=== PATIENT | male | born 1975 | race Two or more races ===

== ENCOUNTER 2018-11-12 10:23 | Emergency (ER) | payer OTHER ==
[2018-11-12] MEDS ORDERED: KETOROLAC 60 MG/2 ML VIAL IM STA (12:19)
--- NOTE | 2018-11-12 12:27 | ED Physician Documentation ---
PD HPI BACK PAIN - Stated complaint Stated Complaint: BACK PX - Chief complaint Chief Complaint: Back Pain - History obtained from History obtained from: Patient - History of Present Illness Timing - onset: How many months ago (3) Timing - duration: Months (3) Timing - details: Gradual onset, Still present Pain level max: 10 Pain level now: 10 Location: Lower Quality: Pain, Spasm, Sharp, Similar to prior episodes Associated symptoms: Numbness. No: Fever, Weakness, Incontinent of urine, Unable to urinate, Hematuria, Incontinent of stool Improves with: Nothing Worsened by: Movement Contributing factors: No: Trauma, Anticoagulated, Out of meds Similar symptoms before: Work up / diagnostics Recently seen: Clinic - Additional information Additional information: 43-year-old male with history of low back pain the past 3 months. He stated he was seen at [facility] and had an MRI of his low back last October 11, 2018 which showed spinal stenosis and herniated disc of L4-L5. He also has left sciatica with this low back pain. He claims that sometimes he would have numbness on the left side of his thigh. 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 He had been taking Tylenol and naproxen and his primary doctor had prescribed Flexeril which he does not take because it only makes him sleepy.His primary doctor had referred him to a specialist for pain and a spine doctor but is waiting for approval from the insurance company. He is here today hoping that we can do an epidural steroid injection to him. I informed him that we do not do this special procedure in the emergency room. I did encourage him to follow-up on the referral for the specialist with his primary doctor. Review of Systems Ten Systems: 10 systems reviewed and negative Constitutional: denies: Fever, Myalgias GI: denies: Abdominal Pain, Diarrhea : denies: Dysuria, Frequency, Hesitancy, Unable to Void, Incontinent, Hematuria Skin: denies: Rash Musculoskeletal: reports: Back pain, Pain with weight bearing. denies: Neck pain, Extremity pain, Joint pain, Extremity swelling, Joint swelling Neurologic: reports: Numbness. denies: Generalized weakness, Focal weakness PD PAST MEDICAL HISTORY - Present Medications Home Medications: Ambulatory Orders Medication Instructions Recorded Confirmed Ibuprofen [Motrin Ib] 800 mg PO Q8HR PRN #20 tablet 11/12/18 Lidocaine Patch 5% [Lidoderm Patch] 1 each TOP DAILY PRN #10 patch 11/12/18 predniSONE [Prednisone] 40 mg PO DAILY #10 tablet 11/12/18 - Allergies Allergies/Adverse Reactions: Allergies Allergy/AdvReac Type Severity Reaction Status Date / Time No Known Drug Allergies Allergy Verified 11/12/18 10:40 PD ED PE NORMAL - Vitals Vital signs reviewed: Yes - General General: Alert and oriented X 3, No acute distress, Well developed/nourished - Neck Neck: Supple, no meningeal sign, No bony TTP - Cardiac Cardiac: RRR, No murmur - Respiratory Respiratory: No respiratory distress, Clear bilaterally - Abdomen Abdomen: Normal bowel sounds, Soft, Non tender, Non distended - Back Back: No CVA TTP, No spinal TTP, Other (Negative leg raising. Ambulates with slight limp of his left leg.) - Derm Derm: Normal color, Warm and dry - Extremities Extremities: No deformity, No tenderness to palpate, Normal ROM s pain, No edema, No calf tenderness / cord - Neuro Neuro: Alert and oriented X 3 - Psych Psych: Normal mood, Normal affect Results - Vitals Vitals: Vital Signs - 24 hr 11/12/18 10:33 Temperature 36 C L Heart Rate 90 Respiratory 16 Rate Blood Pressure 145/92 H O2 Saturation 100 Oxygen O2 Source Room air PD MEDICAL DECISION MAKING - ED course Complexity details: considered differential (HNP, spinal stenosis, sciatica, chronic low back pain), d/w patient ED course: Discussed various treatment with patient. He agreed to have a Toradol shot here in the emergency room. Will discharge him on prednisone for 5 days. Then he will take the Motrin. Encouraged him to take his Flexeril for muscle spasms when needed. Emphasized to him following up with his primary doctor on the referral to a toy painter and the spine doctor. Patient expressed understanding. Departure - Departure Disposition: 01 Home, Self Care Clinical Impression: Back pain Qualifiers: Back pain location: low back pain Chronicity: chronic Back pain laterality: unspecified Sciatica presence: with sciatica Sciatica laterality: sciatica of left side Qualified Code(s): M54.42 - Lumbago with sciatica, left side; G89.29 - Other chronic pain Condition: Stable Instructions: ED Chronic Pain Management, ED Neck Back Pain General Prescriptions: Ibuprofen [Motrin Ib] 800 mg PO Q8HR PRN #20 tablet PRN Reason: pain Lidocaine Patch 5% [Lidoderm Patch] 1 each TOP DAILY PRN #10 patch PRN Reason: Pain predniSONE [Prednisone] 40 mg PO DAILY #10 tablet Comments: Take the prednisone as prescribed. When finish you may start taking the Motrin. You should try to take your Flexeril to decrease your muscle spasm. Follow- up with your primary doctor for reevaluation and follow-up of the referral with pain management and spine doctor. If worse such as incontinence of your urine or stool and numbness between your legs return to the emergency room.
[2018-11-12 13:04] VITALS: BP 131/88
== END 2018-11-12 13:03 | disposition home or self-care (01) ==
LOC: ED 10:23
DX: M54.42 Lumbago with sciatica, left side (principal); G89.29 Other chronic pain
CPT/HCPCS: 96372; 99282; 99283

== ENCOUNTER 2022-02-10 09:10 | Emergency (ER) | payer MEDICAID ==
[2022-02-10] MEDS ORDERED: cefTRIAXone 1 GM in SODIUM CHLORIDE 0.9% MINIBAG 100 ML IV STA (09:38)
[2022-02-10] MEDS ORDERED: cefTRIAXone 1 GM VIAL IM STA (09:46)
[2022-02-10] MEDS ORDERED: LIDOCAINE 1% 10 ML MDV SUBQ ONE (10:12)
--- NOTE | 2022-02-10 10:14 | ED Physician Documentation ---
History of Present Illness - Stated complaint Stated Complaint: LEFT LEG SWELLING/PX - Chief complaint Chief Complaint: Ext Problem - History obtained from History obtained from: Patient - History of Present Illness Timing: How many days ago (3) - Additonal information Additional information: 46-year-old male has developed some swelling in his left foot about 3 days ago. He states that he had a massage done and the following day began to get swelling in his foot and redness the swelling and redness is increased day by day as has the pain. He went into be evaluated by the urgent care and they sent him here to the hospital with concerns of possible DVT. Review of Systems Constitutional: denies: Fever Ears: denies: Ear pain Nose: denies: Congestion Throat: denies: Sore throat Respiratory: denies: Cough GI: denies: Nausea, Vomiting : denies: Dysuria, Frequency Skin: denies: Rash Musculoskeletal: reports: Extremity pain, Extremity swelling. denies: Neck pain, Back pain Neurologic: denies: Generalized weakness, Focal weakness, Numbness PD PAST MEDICAL HISTORY - Past Medical History Past Medical History: No - Past Surgical History Past Surgical History: No - Present Medications Home Medications: Ambulatory Orders Medication Instructions Recorded Confirmed Ibuprofen [Motrin Ib] 800 mg PO Q8HR PRN #20 tablet 11/12/18 Lidocaine Patch 5% [Lidoderm Patch] 1 each TOP DAILY PRN #10 patch 11/12/18 predniSONE [Prednisone] 40 mg PO DAILY #10 tablet 11/12/18 Amox/Clav 875/125 [Augmentin] 1 each PO Q12H #20 tablet 02/10/22 - Allergies Allergies/Adverse Reactions: Allergies Allergy/AdvReac Type Severity Reaction Status Date / Time No Known Drug Allergies Allergy Verified 02/10/22 09:25 - Social History Does the pt smoke?: No Smoking Status: Never smoker Does the pt drink ETOH?: Yes Does the pt have substance abuse?: Yes Substance Use and Type: CBD oil / Products - Immunizations Immunizations are current?: Yes PD ED PE NORMAL - Vitals Vital signs reviewed: Yes (Hypertensive mild) - General General: Alert and oriented X 3, No acute distress, Well developed/nourished - HEENT HEENT: Atraumatic, PERRL, EOMI - Respiratory Respiratory: No respiratory distress - Derm Derm: Normal color, Warm and dry, No rash - Extremities Extremities: No deformity, Other (There is swelling and point tenderness over the dorsum of the left foot medially. There is a lymphangitic streak over the medial aspect of the left calf. There is no posterior calf tenderness. There is pain to flexion extension of the foot pain is located over the dorsum.) - Neuro Neuro: Alert and oriented X 3, hull grinder 2-12 intact, No motor deficit, No sensory deficit, Normal speech Eye Opening: Spontaneous Motor: Obeys Commands Verbal: Oriented GCS Score: 15 - Psych Psych: Normal mood, Normal affect Results - Vitals Vitals: Vital Signs - 24 hr 02/10/22 02/10/22 09:21 10:49 Temperature 35.9 C L 36.2 C L Heart Rate 96 96 Respiratory 18 18 Rate Blood Pressure 140/77 H 137/93 H O2 Saturation 99 100 Oxygen O2 Source Room air - Rads (name of study) Duplex veins left Radiology: Prelim report reviewed (Impression: No deep venous thrombosis.), EMP read indepedently, See rad report PD MEDICAL DECISION MAKING - ED course Complexity details: reviewed results, re-evaluated patient, considered differential, d/w patient ED course: 46-year-old male with swelling and redness to the top of his left foot a day after getting a massage appears to have cellulitis. There is a lymphangitic streak. There is no fever associated with this. He was sent to the emergency department to rule out deep vein thrombosis and duplex vein scan is unremarkable. He is administered Rocephin 1 g IM and we will start him on some Augmentin. I have given this patient in specific instructions to return to the emergency department if he has progression of symptoms despite beginning treatment. Departure - Departure Disposition: 01 Home, Self Care Clinical Impression: Cellulitis Qualifiers: Site of cellulitis: extremity Site of cellulitis of extremity: lower extremity Laterality: left Qualified Code(s): L03.116 - Cellulitis of left lower limb Condition: Stable Instructions: ED Infec Skin Cellulitis Follow-Up: [facility] [Provider Group] Prescriptions: Amox/Clav 875/125 [Augmentin] 1 each PO Q12H #20 tablet Comments: Miguel, today it looks like you have cellulitis in your left foot. This is a bacterial infection in the layer of the skin that does not have septations. This can travel quickly and can get out of hand. It also responds well to antibiotic. The expectation is that you will have improvement that you will be able to notice even today. If you are having worsening of the symptoms of redness or the red streak going up your leg, that is a reason to return to the emergency department for admission to the hospital for more aggressive treatment. The antibiotic Augmentin has been E scribed to [facility] in [place]. Discharge Date/Time: 02/10/22 10:56
--- OUTSIDE RECORDS SUMMARY | 2022-02-10 10:33 | EXTERNAL MEDICAL SUMMARY RPT | Continuity of Care Document ---
:1975 Author Organization [facility] Address [address] [place] [address] Phone Care Team Providers Name Role Phone M.D. Unavailable Unavailable Allergies No information. Encounters No information. Medications No information. Problems date description facility 20220210 Tobacco use and exposure All 20220210 Smoker, current status unknown All 20220210 Pain in limb All 20220210 Pain in left lower limb All 20220210 Pain in left leg All 20220210 Exercise All 20220210 Details of drug misuse behavior All 20220210 Alcohol use All Results No information. Vital Signs date measurement value source 20220210 weight_standard 256.4 lb 20220210 weight_metric 116.3 kg 20220210 temperature_standard 97.3 F 20220210 temperature_metric 36.28 C 20220210 respiration_rate 18 /min 20220210 height_standard 67.75 in 20220210 height_metric 172.09 cm 20220210 heart_rate 103 /min 20220210 BP_systolic 156 mm[Hg] 20220210 BP_diastolic 94 mm[Hg] 20220210 BMI 39.42 kg/m2
[2022-02-10 10:50] VITALS: BP 137/93
[2022-02-10] MEDS ORDERED: LIDOCAINE-MPF 1% 5 ML VIAL IM ONE (11:00)
--- NOTE | 2022-02-10 11:57 | Ultrasound Report ---
PROCEDURE: Duplex Ext Veins Left INDICATIONS: leg pain/swelling TECHNIQUE: Real-time imaging, as well as color and pulse Doppler interrogation, were performed of the lower extr emity deep veins from the inguinal ligament to the popliteal fossa. COMPARISON: None. FINDINGS: The deep veins are normally compressible, and free of intraluminal thrombus. Color and pu lse Doppler demonstrate normal phasic intraluminal flow. There is normal augmentation response to di stal compression maneuver. IMPRESSION: No deep venous thrombosis. Reviewed by: Ada Edwards MD on 02/10/2022 11:55 AM PDT Approved by: Ada Edwards MD on 02/10/2022 11:55 AM PDT Station ID: [id number]
== END 2022-02-10 10:56 | disposition home or self-care (01) ==
LOC: ED 09:10
DX: L03.116 Cellulitis of left lower limb (principal)
CPT/HCPCS: 96372; 99282; 99284

== ENCOUNTER 2022-02-13 16:26 | Inpatient (IN) | payer MEDICAID ==
--- NOTE | 2022-02-13 16:51 | ED Physician Documentation ---
History of Present Illness - Stated complaint Stated Complaint: FOOT PX - Additonal information Additional information: 46-year-old diabetic male returns to the emergency department for evaluation of worsening left foot cellulitis. Seen here on 10 February for left foot swelling an d redness after having a massage done. Ultrasound DVT was negative. He was treated presumptively for cellulitis. Given injection of ceftriaxone here in the emergency department and discharged with Augmentin. Despite this the area of redness and swelling has continued to grow. Patient denies josafat fevers at home but has had occasional chills. No nausea or vomiting. He is a diabetic and has been out of his glyburide for about 5 days. Does not routinely check his sugars. Review of Systems Constitutional: reports: Chills Eyes: reports: Reviewed and negative Nose: reports: Reviewed and negative Throat: reports: Reviewed and negative Cardiac: reports: Reviewed and negative Respiratory: reports: Reviewed and negative GI: reports: Reviewed and negative : reports: Reviewed and negative Skin: reports: Lesions Musculoskeletal: reports: Joint pain Neurologic: reports: Reviewed and negative PD PAST MEDICAL HISTORY - Past Surgical History Past Surgical History: No - Present Medications Home Medications: Ambulatory Orders Medication Instructions Recorded Confirmed Amox/Clav 875/125 [Augmentin] 1 each PO Q12H #20 tablet 02/10/22 02/13/22 Glipizide [Glipizide ER] 5 mg PO DAILY 02/13/22 02/13/22 - Allergies Allergies/Adverse Reactions: Allergies Allergy/AdvReac Type Severity Reaction Status Date / Time No Known Drug Allergies Allergy Verified 02/13/22 16:39 - Social History Does the pt smoke?: No Smoking Status: Never smoker Does the pt drink ETOH?: Yes Does the pt have substance abuse?: Yes - Immunizations Immunizations are current?: Yes PD ED PE EXPANDED - General General: Alert, No acute distress, Well developed/nourished - Neck Neck: Supple w/out meningeal sx. No: Adenopathy - Cardiac Cardiac: Regular Rate, Radial strong equal, Pedal strong equal, Cap refill < 2 sec. No: Murmur Present - Respiratory Respiratory: Clear to ausultation richa. No: Distress, Labored - Abdomen Abdomen: Normal Bowel sounds. No: Tender to palpation - Derm Derm: Normal color, Warm and dry, Other (Significant swelling and erythema on the dorsum of the left foot without palpable abscess formation or drainage. 2+ DP pulse.) - Extremities Extremities: Normal, Left foot (see skin exam). No: Deformity - Neuro Neuro: Alert and Oriented X 3, CNII-XII intact - GCS Eye Opening: Spontaneous Motor: Obeys Commands Verbal: Oriented Total: 15 Results - Vitals Vitals: Vital Signs - 24 hr 02/13/22 02/13/22 16:34 17:08 Temperature 36.3 C L Heart Rate 103 H 92 Respiratory 18 16 Rate Blood Pressure 145/84 H 132/68 H O2 Saturation 97 98 Oxygen O2 Source Room air - Labs Labs: Laboratory Tests 02/13/22 02/13/22 16:47 16:47 WBC 10.0 RBC 5.03 Hgb 14.4 Hct 43.0 MCV 85.5 MCH 28.6 MCHC 33.5 RDW 12.9 Plt Count 251 MPV 10.4 Neut # (Auto) 7.2 H Lymph # (Auto) 1.7 Colbert # (Auto) 0.8 Eos # (Auto) 0.2 Baso # (Auto) 0.1 Absolute Nucleated RBC 0.00 Nucleated RBC % 0.0 Sodium 127 L Potassium 4.2 Chloride 93 L Carbon Dioxide 25 Anion Gap 9.0 BUN 10 Creatinine 0.7 Estimated GFR (MDRD) 121 Glucose 408 H Calcium 8.3 L Total Bilirubin 0.4 AST 14 ALT 23 Alkaline Phosphatase 68 Total Protein 6.8 Albumin 3.1 L Globulin 3.7 Albumin/Globulin Ratio 0.8 L Lipase 26 PD MEDICAL DECISION MAKING - ED course Complexity details: reviewed results, re-evaluated patient, considered differential, d/w patient, d/w hospice care consultant ED course: 46-year-old diabetic male presents the emergency department for evaluation of worsening left foot cellulitis. Seen initially here on the found to have an ultrasound DVT that was negative. He was given ceftriaxone in the ER and placed on Augmentin as an outpatient. Despite compliance with this medication he has significant increase in his erythema induration and pain of the left foot. There are no open sores lesions or purulent drainage. He has been out of his glyburide for about 5 days. We do note a blood glucose just over 400 as well as an associated hyponatremia of 127. He does not have leukocytosis or fevers. However given failure of outpatient antibiotics with progression of cellulitis he will be brought into the hospital under observation status. Nonpurulent cellulitis treated with 2 g of Ancef here in the emergency department. I have spoken with Dr. Coburn who graciously agrees to admit the patient. The patient is aware of the plan and is also in agreement. Departure - Departure Disposition: ED Place in Observation Clinical Impression: Cellulitis of left foot, Poorly controlled diabetes mellitus
[2022-02-13 16:53] LABS: BASOPHILS # (AUTO) 0.1 10^3/uL (0.0-0.1); BASOPHILS % (AUTO) 0.5 %; EOSINOPHILS # (AUTO) 0.2 10^3/uL (0.0-0.7); EOSINOPHILS % (AUTO) 1.8 %; HGB - HEMOGLOBIN 14.4 g/dL (14.0-18.0); LYMPHOCYTES # (AUTO) 1.7 10^3/uL (1.5-3.5); LYMPHOCYTES % (AUTO) 16.9 %; MEAN CORPUSCULAR HEMOGLOBIN 28.6 pg (27.0-31.0); MEAN CORPUSCULAR HGB CONC 33.5 g/dL (32.0-36.0); MEAN CORPUSCULAR VOLUME 85.5 fL (80.0-94.0); MEAN PLATELET VOLUME 10.4 fL (7.4-11.4); MONOCYTES # (AUTO) 0.8 10^3/uL (0.0-1.0); MONOCYTES % (AUTO) 8.4 %; NEUTROPHILS # (AUTO) 7.2 10^3/uL (1.5-6.6); NEUTROPHILS % (AUTO) 71.8 %; PLT - PLATELET COUNT 251 10^3/uL (130-450); RED BLOOD COUNT 5.03 10^6/uL (4.70-6.10); RED CELL DISTRIBUTION WIDTH 12.9 % (12.0-15.0)
[2022-02-13 17:06] LABS: ALBUMIN 3.1 g/dL (3.2-5.5); ALBUMIN/GLOBULIN RATIO 0.8 (1.0-2.2); BILIRUBIN,TOTAL 0.4 mg/dL (0.2-1.0); CALCIUM 8.3 mg/dL (8.5-10.3); CREATININE 0.7 mg/dL (0.6-1.2); POTASSIUM 4.2 mmol/L (3.5-5.0); TOTAL PROTEIN 6.8 g/dL (6.7-8.2)
--- OUTSIDE RECORDS SUMMARY | 2022-02-13 17:06 | EXTERNAL MEDICAL SUMMARY RPT | Continuity of Care Document ---
:1975 Author Organization [facility] Address [address] [phone] Phone Care Team Providers Name Role Phone Robert, Irwin Gentile Unavailable Unavailabl e Allergies No information. Encounters No information. Medications [...]
[2022-02-13] MEDS ORDERED: ceFAZolin 2 GM in SODIUM CHLORIDE 0.9% MINIBAG 100 ML IV STA (17:20)
[2022-02-13] MEDS ORDERED: ONDANSETRON 4 MG/2 ML VIAL IVP PRN (17:36)
[2022-02-13] MEDS ORDERED: ONDANSETRON ODT 4 MG TABLET TL PRN (17:36)
[2022-02-13] MEDS: INSULIN ASPART 300 UNIT/3 ML PEN SUBQ SCH ×2 (18:43→22:13)
[2022-02-13 19:18] LABS: B. PARAPERTUSSIS- RESP PCR PAN NOT DETECTED; B. PERTUSSIS- RESP PCR PANEL NOT DETECTED; C. PNEUMONIAE- RESP PCR PANEL NOT DETECTED; CORONAVIRUS 229E-RESP PCR NOT DETECTED; CORONAVIRUS HKU1-RESP PCR NOT DETECTED; CORONAVIRUS NL63-RESP PCR NOT DETECTED; CORONAVIRUS OC43-RESP PCR NOT DETECTED; HUMAN METAPNEUMOVIRUS NOT DETECTED; INFLUENZA A- RESP PCR PANEL NOT DETECTED; INFLUENZA B - RESP PCR PANEL NOT DETECTED; M. PNEUMONIAE- RESP PCR PANEL NOT DETECTED; PARAINFLUENZA VIRUS 1 NOT DETECTED; PARAINFLUENZA VIRUS 2 NOT DETECTED; PARAINFLUENZA VIRUS 3 NOT DETECTED; PARAINFLUENZA VIRUS 4 NOT DETECTED; RHINOVIRUS/ENTEROVIRUS NOT DETECTED; RSV- RESP PCR PANEL NOT DETECTED; SARS-CoV-2 -RESP PCR PANEL NOT DETECTED
[2022-02-13 21:44] LABS: ESTIMATED AVERAGE GLUCOSE 326 mg/dL (70-100)
[2022-02-13] MEDS ORDERED: INSULIN ASPART 300 UNIT/3 ML PEN SUBQ ONE (21:46)
[2022-02-13] MEDS: INSULIN GLARGINE 300 UNIT/3 ML PEN SUBQ SCH (22:14)
[2022-02-13] MEDS: SODIUM CHLORIDE FLUSH 0.9% 10 ML SYRINGE IVP PRN (22:14)
[2022-02-13] MEDS: KETOROLAC 30 MG/ML VIAL IVP PRN (22:14)
--- NOTE | 2022-02-13 23:36 | HISTORY & PHYSICAL EXAMINATION ---
Chief Complaint - Chief Complaint Chief Complaint: Cellulitis left foot History of Present Illness - Admitted From Admitted From:: ED - History Obtained From Records Reviewed: [facility] History obtained from: Patient Exam Limitations: None - History of Present Illness HPI Comment/Other: Mr. Hudson is a morbidly obese, 46-year-old male with a history of poorly controlled diabetes type II who is being admitted from the ED today for cellulitis of the dorsum of his left foot after failing outpatient antibiotic therapy. He first noticed redness and edema on Sunday the . 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 Conservative therapy of Ibuprofen, rest, and ice failed so he went to the ED on Sunday the . There he had an US that ruled out DVT, he was given started on Augmentin and discharged. Over the weekend he was having more pain, the site felt very hot and it became more swollen, prompting his ED visit today. He describes the pain as a constant pressure and ache with occasional stabbing pain with movement. While walking makes the pain worse, he denies pain with movement of his ankle and toes. He also denies fever, chills, rigors, and swea ts. Regarding his diabetes, he initially had increased BGLs in 2007 with an A1c of 8.4%. He was started on Metformin, but it was discontinued due to abdominal discomfort and replaced with Glipizide. Diabetes remained poorly controlled and he stopped taking the Glipizide in 2012 and began to diet and exercise. He lost 60 lbs but does not know what his A1c was at that time. More recently, he was se en at [facility] and started back on Glipizide. Today, he is 118 kg with a BMI fo 40.7 and his BGL on admission was 408. History - Past Medical History Cardiovascular: reports: Other (Palpitations (2007) - Holter showed sinus tach.) Respiratory: reports: None Neuro: reports: Headaches Endocrine/Autoimmune: reports: Type 2 diabetes GI: reports: Other (Non-alcoholic fatty liver disease) : reports: Other (Hematuria (2011) - no cystoscopy) HEENT: reports: None Psych: reports: None Musculoskeletal: reports: Chronic back pain Derm: reports: None MRSA Hx?: No - Family & Social History Family History: Mother: , CAD (CABG in her 40s), CVA/TIA (62 years old - ), Father: , [place] (68 years old - ), Sister: Alive and Well (2 sisters, 1 brother, 1 daughter healthy), Brother: Alive and Well, Other family: Alive and Well Living arrangement: At home Living Situation: Alone - Substance History Use: Uses substance without health or social issues: Tobacco (Smoked for many years 2-3 cigs per day. Quit 2020.), Alcohol (Social drinker), Other (CBD (pain)) - POLST Patient has POLST: No POLST Status: Full Code Meds/Allgy - Home Medications Home Medications: Ambulatory Orders Medication Instructions Recorded Confirmed Amox/Clav 875/125 [Augmentin] 1 each PO Q12H #20 tablet 02/10/22 02/13/22 Glipizide [Glipizide ER] 5 mg PO DAILY 02/13/22 02/13/22 - Allergies Allergies/Adverse Reactions: Allergies Allergy/AdvReac Type Severity Reaction Status Date / Time No Known Drug Allergies Allergy Verified 02/13/22 16:39 Review of Systems - Constitutional Constitutional: denies: Fatigue, Fever, Chills, Malaise, Weakness, Poor appetite, Diaphoresis - Eyes Eyes: denies: Pain, Blurred vision, Vision loss - Ears, Nose & Throat Ears, Nose & Throat: denies: Ear pain, Hearing loss, Vertigo - Cardiovascular Cariovascular: denies: Palpitations, Chest pain, Lightheadedness - Respiratory Respiratory: denies: Cough - Gastrointestinal Gastrointestinal: denies: Abdominal pain, Change in bowel habits - Genitourinary Genitourinary: denies: Dysuria, Frequency, Urgency, Nocturia - Musculoskeletal Musculoskeletal: reports: Back pain. denies: Muscle weakness - Integumentary Integumentary: denies: Rash - Neurological Neurological: denies: General weakness, Headache, Dizziness, Numbness - Endocrine Endocrine: denies: Polyuria, Polydypsia, Polyphagia - Hematologic/Lymphatic Hematologic/Lymphatic: denies: Bruising Prior Level of Functionality: Completely independent Exam - Vital Signs Reviewed Vital Signs: Yes Vital Signs: Vital Signs x48h Temp Pulse Pulse Resp BP BP Pulse Ox 02/13/22 20:47 96 18 134/81 H 99 02/13/22 18:39 37 C 93 19 152/89 H 98 02/13/22 17:08 92 16 132/68 H 98 02/13/22 16:34 36.3 C L 103 H 18 145/84 H 97 - Physical Exam General Appearance: positive: No acute distress, Alert Eyes Bilateral: positive: Normal inspection, PERRL, EOMI ENT: positive: Pharynx nml, No signs of dehydration Neck: positive: Nml inspection. negative: Stiff neck Respiratory: positive: No respiratory distress, Breath sounds nml Cardiovascular: positive: Regular rate & rhythm, No murmur, No gallop Peripheral Pulses: positive: 2+ Abdomen: positive: Non-tender, Nml bowel sounds. negative: Mass Back: positive: Nml inspection Skin: positive: Color nml, No rash, Warm, Dry, Other (Distal dorsum of L foot with fist-sized, blanchable erythema and diffuse swelling below ankle, extending to toes. No lymphangitic streaking.) Extremities: positive: Full ROM (Painless full ROM at ankles and toes.), Nml appearance, Pedal edema (Dorsum of left foot only. Non-pitting.). negative: Joint swelling Neurologic/Psychiatric: positive: Oriented x3, CN's nml (2-12) (Grossly), Motor nml, Sensation nml (Bilateral feet normal sensation to light touch) Comments/Other: Mr. Hudson is a pleasant man who appears to be of stated age. He is in no distress. His exam is unremarkable except for his left foot. It is diffusely swollen from inferior ankle to toes with a distal, mid-foot, fist-sized area of blanchable erythema. There is no evidence of lymphangitic streaking and no obvious bite frankel or skin breaks. There is a 5 mm, intact vesicle with a depressed center consistent with a pressure blister. Conclusion/Plan - Problem List (1) Cellulitis of left foot Conclusion/Plan: Erythema and edema with intact skin consistent with cellulitis. No fever or lymphangitic streaking at this time. Failed outpatient antibiotic management of Augmentin. Due to poorly controlled DMII, treating with IV meropenum and vancomycin. Will monitor continue to monitor for improvement. Daily CBCs. (2) Diabetes mellitus type 2 with complications, uncontrolled Conclusion/Plan: BGL 408 on admission and patient admitted DM has been uncontrolled since 2007. Per patient, office aide saw retinopathic changes last year. Placed pt. on diabetic diet with PM lantus and sliding scale novolog with AC glucose checks. Nutritional consult on the . (4) Morbid obesity Conclusion/Plan: Weight at admission 118kg and BMI of 40.7. Pt agreed to nutritional consult later today. (5) Hyponatremia Conclusion/Plan: Sodium 127 on admission. With BGL of 408, corrects to 132. No treatment indicated at this time. (6) Hypertension associated with diabetes Conclusion/Plan: BPs elevated in setting of poorly controlled diabetes with hypoalbuminemia (3.1) is concerning for future kidney damage. BUN of 10 and creatinine 0.7 no acute injury. Will continue to monitor and consider starting an MEGHA or ARB. 02/13 range: 152/89, 145/84, 132/68 - Lab Results Lab results reviewed: Yes Fish Bones: 02/13/22 16:47 02/13/22 16:47
[2022-02-14] MEDS ORDERED: VANCOMYCIN INJ 2 GM in SODIUM CHLORIDE 0.9% 500 ML IV SCH (01:00)
[2022-02-14] MEDS: SODIUM CHLORIDE FLUSH 0.9% 10 ML SYRINGE IVP SCH ×3 (01:48→17:26)
[2022-02-14] MEDS: MEROPENEM 1 GM in SODIUM CHLORIDE 0.9% MINIBAG 100 ML IV SCH ×2 (01:48→07:56)
[2022-02-14] MEDS ORDERED: SODIUM CHLORIDE 0.9% 250 ML IV ONE (01:59)
[2022-02-14 05:02] LABS: BASOPHILS # (AUTO) 0.1 10^3/uL (0.0-0.1); BASOPHILS % (AUTO) 0.6 %; EOSINOPHILS # (AUTO) 0.2 10^3/uL (0.0-0.7); EOSINOPHILS % (AUTO) 2.3 %; HCT - HEMATOCRIT 41.8 % (42.0-52.0); HGB - HEMOGLOBIN 13.7 g/dL (14.0-18.0); LYMPHOCYTES # (AUTO) 2.2 10^3/uL (1.5-3.5); LYMPHOCYTES % (AUTO) 21.3 %; MEAN CORPUSCULAR HEMOGLOBIN 28.5 pg (27.0-31.0); MEAN CORPUSCULAR HGB CONC 32.8 g/dL (32.0-36.0); MEAN CORPUSCULAR VOLUME 87.1 fL (80.0-94.0); MEAN PLATELET VOLUME 10.3 fL (7.4-11.4); MONOCYTES # (AUTO) 1.1 10^3/uL (0.0-1.0); MONOCYTES % (AUTO) 10.8 %; NEUTROPHILS # (AUTO) 6.7 10^3/uL (1.5-6.6); NEUTROPHILS % (AUTO) 63.9 %; PLT - PLATELET COUNT 239 10^3/uL (130-450); RED CELL DISTRIBUTION WIDTH 12.9 % (12.0-15.0); WHITE BLOOD COUNT 10.5 x10^3/uL (4.8-10.8)
[2022-02-14 05:23] LABS: CALCIUM 8.5 mg/dL (8.5-10.3); CREATININE 0.8 mg/dL (0.6-1.2); CRP - C-REACTIVE PROTEIN 11.2 mg/dL (0-1.0)
[2022-02-14] MEDS: INSULIN ASPART 300 UNIT/3 ML PEN SUBQ SCH ×8 (07:53→21:47)
[2022-02-14] MEDS: ENOXAPARIN 40 MG/0.4 ML SYRINGE SUBQ SCH (08:40)
--- NOTE | 2022-02-14 10:39 | PHARMACY PROGRESS NOTE ---
- Best Possible Medication History Admit Date and Time: 02/13/22 1736 Processed by: Nursing Medication History completed: Yes Secondary Source(s): Pharmacy records, Insurance records As the person ultimately responsible for medication therapy, providers are able to order a medication from an existing home medication list in [facility] via the "Reconcile Routine" prior to Confirmation of that medication by it support analyst. Such practice is discouraged except when the physician, in their clinical judgment, deems that a medical need exists for a medication without regard to previous use.
[2022-02-14] MEDS: ACETAMINOPHEN 325 MG TABLET PO PRN ×2 (11:54→17:22)
[2022-02-14] MEDS ORDERED: VANCOMYCIN INJ 1.75 GM in SODIUM CHLORIDE 0.9% 500 ML IV SCH (13:00)
[2022-02-14] MEDS: SODIUM CHLORIDE FLUSH 0.9% 10 ML SYRINGE IVP PRN (13:33)
[2022-02-14] MEDS: VANCOMYCIN INJ 2 GM in SODIUM CHLORIDE 0.9% 500 ML IV SCH (13:35)
--- NOTE | 2022-02-14 16:34 | PROVIDER PROGRESS NOTE ---
Assessment/Plan - Problem List (1) Cellulitis of left foot Assessment/Plan: He has erythema and edema with intact skin consistent with cellulitis. The very center has an area that may be trying to come to a head. He failed outpatient antibiotic management of Augmentin. CRP has decreased minimally from 12 to 11 today. Due to poorly controlled DMII, we are treating with IV antibx. Will continue iv Vanco and change meropenam to Unasyn. Will monitor continue to monitor for improvement. Follow daily WBC and CRP. Will order warm soaks so it could drain on its own. (2) Diabetes mellitus type 2 with complications, uncontrolled Conclusion/Plan: His glu was 408 on admission and patient admitted DM has been uncontrolled since 2007. Per patient, print journalist saw retinopathic changes last year. Pt was ordered a diabetic diet, we started PM lantus, 5U Insulin tid with meals and sliding scale Reg Insulin with AC glucose checks. Nutritional consult ordered, to be done today. (3) Morbid obesity Conclusion/Plan: Weight at admission 118kg and BMI of 40.7. Pt agreed to nutritional consult later today. (4) Hyponatremia Conclusion/Plan: Sodium 127 on admission. With BGL of 408, corrects to 132. No treatment indicated at this time. (5) Hypertension associated with diabetes Conclusion/Plan: BPs elevated up to 150's in setting of poorly controlled diabetes with hypoalbuminemia (3.1) is concerning for future kidney damage. BUN of 10 and c reatinine 0.7 no acute injury. Will continue to monitor BP and consider starting an MEGHA or ARB. - Current Meds Current Meds: Current Medications Generic Name Dose Route Start Last Admin Trade Name Soni PRN Reason Stop Dose Admin Acetaminophen 650 mg 02/13/22 17:36 02/14/22 11:54 Acetaminophen 325 Mg Tablet PO 650 mg Q4HR PRN Administration Pain 1 to 4 Enoxaparin Sodium 40 mg 02/14/22 09:00 02/14/22 08:40 Enoxaparin 40 Mg/0.4 Ml Syringe SUBQ 40 mg DAILY YUNIOR Administration Vancomycin HCl 2 gm/ Sodium 500 mls @ 250 mls/hr 02/14/22 13:00 02/14/22 15:41 Chloride IV Infused Q12H YUNIOR Infusion Insulin Aspart 5 unit 02/13/22 18:00 02/14/22 11:50 Insulin Aspart 300 Unit/3 Ml Pen SUBQ 5 unit TIDWM YUNIOR Administration Protocol Insulin Glargine 10 unit 02/13/22 21:00 02/13/22 22:14 Insulin Glargine 300 Unit/3 Ml Pen SUBQ 10 unit QPM YUNIOR Administration Ketorolac Tromethamine 30 mg 02/13/22 21:48 02/13/22 22:14 Ketorolac 30 Mg/Ml Vial IVP 02/18/22 21:47 30 mg Q6HR PRN Administration PAIN Sodium Chloride 10 ml 02/13/22 17:36 02/14/22 13:33 Sodium Chloride Flush 0.9% 10 Ml Syringe IVP 10 ml PRN PRN Administration NEEDED PER PROVIDER ORDERS Sodium Chloride 10 ml 02/14/22 01:00 02/14/22 07:53 Sodium Chloride Flush 0.9% 10 Ml Syringe IVP 10 ml 0100,0900,1700 [facility] Administration - Lab Result Fish Bone Diagrams: 02/14/22 04:34 02/14/22 04:34 - Additional Planning My Orders: My Active Orders 02/14/22 10:43 Nutrition Consult [CONS] Routine 02/14/22 17:00 Cholecalciferol [Vitamin D3] 50 mcg PO DAILY Insulin Aspart [NovoLOG] 2 - 10 unit SUBQ 0800,1200,1700,2100 Lactobacillus Rhamnosus GG [Culturelle] 1 cap PO DAILY 02/14/22 18:00 Ampicillin/Sulbactam [Unasyn] 3 gm Sodium Chloride 0.9% Minibag [Normal Saline 0.9% Minibag] 100 ml IV Q6HR Subjective - Subjective Patient Reports: Feeling Better, Pain (still has pain and redness of L foot) Objective Vital Signs: Vital Signs - 24 hr 02/13/22 02/13/22 02/13/22 16:34 17:08 18:39 Temperature 36.3 C L 37 C Heart Rate 103 H 92 Heart Rate [ 93 Brachial] Respiratory 18 16 19 Rate Blood Pressure 145/84 H 132/68 H Blood Pressure 152/89 H [Right Brachial artery] O2 Saturation 97 98 98 02/13/22 02/14/22 02/14/22 20:47 01:30 05:29 Temperature 36.7 C 36.7 C Heart Rate Heart Rate [ 96 83 80 Brachial] Respiratory 18 16 18 Rate Blood Pressure Blood Pressure 134/81 H 111/60 125/64 [Right Brachial artery] O2 Saturation 99 98 97 02/14/22 02/14/22 02/14/22 07:32 11:35 15:50 Temperature 36.9 C 36.9 C 36.9 C Heart Rate Heart Rate [ 80 85 85 Brachial] Respiratory 18 16 19 Rate Blood Pressure Blood Pressure 127/71 128/75 125/66 [Right Brachial artery] O2 Saturation 96 96 97 Oxygen O2 Source Room air I&O (Last 24 Hrs): Intake and Output Totals x24h 02/12/22 02/13/22 02/14/22 23:59 23:59 23:59 Intake Total 350 2160 Balance 350 2160 General: Alert, Oriented x3 HEENT: Atraumatic, EOMI Neck: Supple, No JVD Neuro: Alert, Non Focal Cardiovascular: Regular rate Respiratory: No respiratory distress Abdomen: Soft Extremities: No edema, Other (L dorsum has a smaller area of redness, swelling and warmth, centrally it is coming to "a head") - Results Results: Laboratory Results WBC 10.5 x10^3/uL (4.8-10.8) 02/14/22 04:34 RBC 4.80 10^6/uL (4.70-6.10) 02/14/22 04:34 Hgb 13.7 g/dL (14.0-18.0) L 02/14/22 04:34 Hct 41.8 % (42.0-52.0) L 02/14/22 04:34 MCV 87.1 fL (80.0-94.0) 02/14/22 04:34 MCH 28.5 pg (27.0-31.0) 02/14/22 04:34 MCHC 32.8 g/dL (32.0-36.0) 02/14/22 04:34 RDW 12.9 % (12.0-15.0) 02/14/22 04:34 Plt Count 239 10^3/uL (130-450) 02/14/22 04:34 MPV 10.3 fL (7.4-11.4) 02/14/22 04:34 Neut # (Auto) 6.7 10^3/uL (1.5-6.6) H 02/14/22 04:34 Lymph # (Auto) 2.2 10^3/uL (1.5-3.5) 02/14/22 04:34 [place] # (Auto) 1.1 10^3/uL (0.0-1.0) H 02/14/22 04:34 Eos # (Auto) 0.2 10^3/uL (0.0-0.7) 02/14/22 04:34 Baso # (Auto) 0.1 10^3/uL (0.0-0.1) 02/14/22 04:34 Absolute Nucleated RBC 0.00 x10^3/uL 02/14/22 04:34 Nucleated RBC % 0.0 /100WBC 02/14/22 04:34 Sodium 135 mmol/L (135-145) 02/14/22 04:34 Potassium 4.0 mmol/L (3.5-5.0) 02/14/22 04:34 Chloride 98 mmol/L (101-111) L 02/14/22 04:34 Carbon Dioxide 27 mmol/L (21-32) 02/14/22 04:34 Anion Gap 10.0 (6-13) 02/14/22 04:34 BUN 13 mg/dL (6-20) 02/14/22 04:34 Creatinine 0.8 mg/dL (0.6-1.2) 02/14/22 04:34 Estimated GFR (MDRD) 104 (>89) 02/14/22 04:34 Glucose 190 mg/dL (70-100) H 02/14/22 04:34 POC Whole Bld Glucose 204 mg/dL (70 - 100) H 02/14/22 16:27 Estimat Average Glucose 326 mg/dL (70-100) H 02/13/22 16:47 Hemoglobin A1c % 13.0 % (4.27-6.07) H 02/13/22 16:47 Calcium 8.5 mg/dL (8.5-10.3) 02/14/22 04:34 Total Bilirubin 0.4 mg/dL (0.2-1.0) 02/13/22 16:47 AST 14 IU/L (10-42) 02/13/22 16:47 ALT 23 IU/L (10-60) 02/13/22 16:47 Alkaline Phosphatase 68 IU/L (42-121) 02/13/22 16:47 C-Reactive Protein 11.2 mg/dL (0-1.0) H 02/14/22 04:34 Total Protein 6.8 g/dL (6.7-8.2) 02/13/22 16:47 Albumin 3.1 g/dL (3.2-5.5) L 02/13/22 16:47 Globulin 3.7 g/dL (2.1-4.2) 02/13/22 16:47 Albumin/Globulin Ratio 0.8 (1.0-2.2) L 02/13/22 16:47 Lipase 26 U/L (22-51) 02/13/22 16:47 Nasal Adenovirus (PCR) NOT DETECTED 02/13/22 18:00 Nasal B. parapertussis DNA (PCR) NOT DETECTED 02/13/22 18:00 Nasal Coronavir 229E PCR NOT DETECTED 02/13/22 18:00 Nasal Coronavir HKU1 PCR NOT DETECTED 02/13/22 18:00 Nasal Coronavir NL63 PCR NOT DETECTED 02/13/22 18:00 Nasal Coronavir OC43 PCR NOT DETECTED 02/13/22 18:00 Nasal Enterovir/Rhinovir PCR NOT DETECTED 02/13/22 18:00 Nasal Influenza B PCR NOT DETECTED 02/13/22 18:00 Nasal Influenza A PCR NOT DETECTED 02/13/22 18:00 Nasal Parainfluen 1 PCR NOT DETECTED 02/13/22 18:00 Nasal Parainfluen 2 PCR NOT DETECTED 02/13/22 18:00 Nasal Parainfluen 3 PCR NOT DETECTED 02/13/22 18:00 Nasal Parainfluen 4 PCR NOT DETECTED 02/13/22 18:00 Nasal RSV (PCR) NOT DETECTED 02/13/22 18:00 Nasal B.pertussis DNA PCR NOT DETECTED 02/13/22 18:00 Nasal C.pneumoniae (PCR) NOT DETECTED 02/13/22 18:00 [place] Human Metapneumo PCR NOT DETECTED 02/13/22 18:00 Nasal M.pneumoniae (PCR) NOT DETECTED 02/13/22 18:00 Nasal SARS-CoV-2 (PCR) NOT DETECTED 02/13/22 18:00
[2022-02-14] MEDS: CHOLECALCIFEROL 25 MCG TABLET PO SCH (17:22)
[2022-02-14] MEDS: LACTOBACILLUS RHAMNOSUS GG CAPSULE PO SCH (17:23)
[2022-02-14] MEDS: AMPICILLIN/SULBACTAM 3 GM in SODIUM CHLORIDE 0.9% MINIBAG 100 ML IV SCH ×2 (17:57→23:34)
[2022-02-14] MEDS: KETOROLAC 30 MG/ML VIAL IVP PRN (20:46)
[2022-02-14] MEDS: INSULIN GLARGINE 300 UNIT/3 ML PEN SUBQ SCH (20:47)
[2022-02-15] MEDS: VANCOMYCIN INJ 2 GM in SODIUM CHLORIDE 0.9% 500 ML IV SCH ×2 (00:13→12:37)
[2022-02-15] MEDS: SODIUM CHLORIDE FLUSH 0.9% 10 ML SYRINGE IVP SCH ×4 (00:15→23:47)
[2022-02-15 06:12] LABS: BASOPHILS # (AUTO) 0.1 10^3/uL (0.0-0.1); BASOPHILS % (AUTO) 0.6 %; EOSINOPHILS # (AUTO) 0.2 10^3/uL (0.0-0.7); EOSINOPHILS % (AUTO) 2.5 %; HCT - HEMATOCRIT 41.5 % (42.0-52.0); HGB - HEMOGLOBIN 13.7 g/dL (14.0-18.0); LYMPHOCYTES % (AUTO) 22.8 %; MEAN CORPUSCULAR HEMOGLOBIN 28.4 pg (27.0-31.0); MEAN CORPUSCULAR VOLUME 86.1 fL (80.0-94.0); MEAN PLATELET VOLUME 10.5 fL (7.4-11.4); MONOCYTES # (AUTO) 0.9 10^3/uL (0.0-1.0); MONOCYTES % (AUTO) 9.9 %; NEUTROPHILS # (AUTO) 5.6 10^3/uL (1.5-6.6); NEUTROPHILS % (AUTO) 63.3 %; PLT - PLATELET COUNT 240 10^3/uL (130-450); RED BLOOD COUNT 4.82 10^6/uL (4.70-6.10); WHITE BLOOD COUNT 8.8 x10^3/uL (4.8-10.8)
[2022-02-15] MEDS: AMPICILLIN/SULBACTAM 3 GM in SODIUM CHLORIDE 0.9% MINIBAG 100 ML IV SCH ×4 (06:18→23:46)
[2022-02-15 06:23] LABS: CALCIUM 8.4 mg/dL (8.5-10.3); CREATININE 0.7 mg/dL (0.6-1.2); POTASSIUM 4.2 mmol/L (3.5-5.0)
[2022-02-15] MEDS: INSULIN ASPART 300 UNIT/3 ML PEN SUBQ SCH ×8 (07:45→20:15)
[2022-02-15] MEDS: ENOXAPARIN 40 MG/0.4 ML SYRINGE SUBQ SCH (08:42)
[2022-02-15] MEDS: CHOLECALCIFEROL 25 MCG TABLET PO SCH (08:42)
[2022-02-15] MEDS: LACTOBACILLUS RHAMNOSUS GG CAPSULE PO SCH (08:42)
[2022-02-15] MEDS: KETOROLAC 30 MG/ML VIAL IVP PRN ×2 (11:58→20:10)
[2022-02-15] MEDS: SODIUM CHLORIDE FLUSH 0.9% 10 ML SYRINGE IVP PRN ×2 (11:59→20:10)
--- NOTE | 2022-02-15 14:41 | PROVIDER PROGRESS NOTE ---
Assessment/Plan - Problem List (1) Cellulitis of left foot Assessment/Plan: He has dark purple area with surrounding erythema and edema with intact skin consistent with cellulitis. The very center has an area that may be trying to come to a head. He failed outpatient antibiotic management of Augmentin. CRP has decreased minimally daily since on iv antibx. Due to poorly controlled DMII, we are treating with IV antibx. Will continue iv Vanco and Unasyn. Will monitor continue to monitor for improvement. Follow daily WBC and CRP. Will order warm soaks so it could drain on its own. Will request Ortho consult with Dr Engilsh regarding possible debridement needed. (2) Diabetes mellitus type 2 with complications, uncontrolled Conclusion/Plan: His glu was 408 on admission and patient admitted that his DM has been uncontrolled since 2007. Per patient, senior project architect saw retinopathic changes last year. Pt was ordered a diabetic diet, we started PM lantus, 5U Insulin tid with meals and sliding scale Reg Insulin with ACHS glucose checks. Nutritional consult ordered, to see him as well. (3) Morbid obesity Conclusion/Plan: Weight at admission 118kg and BMI of 40.7. Pt agreed to nutritional consult. (4) Hyponatremia Conclusion/Plan: Sodium 127 on admission. With blood glucose of 408, corrected to 132. No treatment indicated at this time. (5) Hypertension associated with diabetes Conclusion/Plan: BPs elevated up to 150's in setting of poorly controlled diabetes with hypoalbuminemia (3.1) is concerning for future kidney damage. BUN of 10 and creatinine 0.7 no acute injury. Will continue to monitor BP and consider starting an MEGHA or ARB. - Current Meds Current Meds: Current Medications Generic Name Dose Route Start Last Admin Trade Name Freq PRN Reason Stop Dose Admin Acetaminophen 650 mg 02/13/22 17:36 02/14/22 17:22 Acetaminophen 325 Mg Tablet PO 650 mg Q4HR PRN Administration Pain 1 to 4 Cholecalciferol 50 mcg 02/14/22 17:00 02/15/22 08:42 Cholecalciferol 25 Mcg Tablet PO 50 mcg DAILY YUNIOR Administration Enoxaparin Sodium 40 mg 02/14/22 09:00 02/15/22 08:42 Enoxaparin 40 Mg/0.4 Ml Syringe SUBQ 40 mg DAILY YUNIOR Administration Vancomycin HCl 2 gm/ Sodium 500 mls @ 250 mls/hr 02/14/22 13:00 02/15/22 12:37 Chloride IV 250 mls/hr Q12H YUNIOR Administration Ampicillin Sodium/Sulbactam 100 mls @ 200 mls/hr 02/14/22 18:00 02/15/22 12:37 Sodium 3 gm/ Sodium Chloride IV Infused Q6HR YUNIOR Infusion Insulin Aspart 5 unit 02/13/22 18:00 02/15/22 11:53 Insulin Aspart 300 Unit/3 Ml Pen SUBQ 5 unit TIDWM YUNIOR Administration Protocol Insulin Aspart 3 - 11 unit 02/14/22 21:00 02/15/22 11:53 Insulin Aspart 300 Unit/3 Ml Pen SUBQ 7 unit 0800,1200,1700,2100 YUNIOR Administration Protocol Insulin Glargine 10 unit 02/13/22 21:00 02/14/22 20:47 Insulin Glargine 300 Unit/3 Ml Pen SUBQ 10 unit QPM YUNIOR Administration Ketorolac Tromethamine 30 mg 02/13/22 21:48 02/15/22 11:58 Ketorolac 30 Mg/Ml Vial IVP 02/18/22 21:47 30 mg Q6HR PRN Administration PAIN Lactobacillus Rhamnosus 1 cap 02/14/22 17:00 02/15/22 08:42 Lactobacillus Rhamnosus Gg Capsule PO 1 cap DAILY YUNIOR Administration Sodium Chloride 10 ml 02/13/22 17:36 02/15/22 11:59 Sodium Chloride Flush 0.9% 10 Ml Syringe IVP 10 ml PRN PRN Administration NEEDED PER PROVIDER ORDERS Sodium Chloride 10 ml 02/14/22 01:00 02/15/22 08:42 Sodium Chloride Flush 0.9% 10 Ml Syringe IVP 10 ml 0100,0900,1700 YUNIOR Administration - Lab Result Fish Bone Diagrams: 02/15/22 05:39 02/15/22 05:39 - Diagnostic Imaging Results Diagnostic Imaging Results: Final report reviewed - Additional Planning My Orders: My Active Orders 02/14/22 17:00 Cholecalciferol [Vitamin D3] 50 mcg PO DAILY Lactobacillus Rhamnosus GG [Culturelle] 1 cap PO DAILY 02/14/22 18:00 Ampicillin/Sulbactam [Unasyn] 3 gm Sodium Chloride 0.9% Minibag [Normal Saline 0.9% Minibag] 100 ml IV Q6HR 02/14/22 19:02 Miscellaenous Nursing Order [RC] QSHIFT 02/14/22 21:00 Insulin Aspart [NovoLOG] 3 - 11 unit SUBQ 0800,1200,1700,2100 02/15/22 Consult [Orthopedics Consult] [CONS] Routine Objective Vital Signs: Vital Signs - 24 hr 02/14/22 02/14/22 02/14/22 15:50 20:45 23:46 Temperature 36.9 C 37.0 C 36.7 C Heart Rate [ 85 87 79 Brachial] Respiratory 19 16 18 Rate Blood Pressure 125/66 128/71 137/73 H [Right Brachial artery] O2 Saturation 97 97 99 02/15/22 02/15/22 02/15/22 05:38 07:33 11:14 Temperature 36.9 C 37.1 C 37 C Heart Rate [ 88 88 94 Brachial] Respiratory 16 16 16 Rate Blood Pressure 141/78 H 120/91 H 134/71 H [Right Brachial artery] O2 Saturation 96 95 98 Oxygen O2 Source Room air I&O (Last 24 Hrs): Intake and Output Totals x24h 02/13/22 02/14/22 02/15/22 23:59 23:59 23:59 Intake Total 350 2560 1280 Balance 350 2560 1280 General: Alert, Oriented x3 HEENT: Mucous membr. moist/pink Neck: Supple, No JVD Neuro: Alert, Non Focal Cardiovascular: Regular rate Respiratory: No respiratory distress Abdomen: Soft Extremities: Other (Red, raised area of dorsum of L foot with central purple area, is warm and tender.) - Results Results: Laboratory Results WBC 8.8 x10^3/uL (4.8-10.8) 02/15/22 05:39 RBC 4.82 10^6/uL (4.70-6.10) 02/15/22 05:39 Hgb 13.7 g/dL (14.0-18.0) L 02/15/22 05:39 Hct 41.5 % (42.0-52.0) L 02/15/22 05:39 MCV 86.1 fL (80.0-94.0) 02/15/22 05:39 MCH 28.4 pg (27.0-31.0) 02/15/22 05:39 MCHC 33.0 g/dL (32.0-36.0) 02/15/22 05:39 RDW 13.0 % (12.0-15.0) 02/15/22 05:39 Plt Count 240 10^3/uL (130-450) 02/15/22 05:39 MPV 10.5 fL (7.4-11.4) 02/15/22 05:39 Neut # (Auto) 5.6 10^3/uL (1.5-6.6) 02/15/22 05:39 Lymph # (Auto) 2.0 10^3/uL (1.5-3.5) 02/15/22 05:39 [place] # (Auto) 0.9 10^3/uL (0.0-1.0) 02/15/22 05:39 Eos # (Auto) 0.2 10^3/uL (0.0-0.7) 02/15/22 05:39 Baso # (Auto) 0.1 10^3/uL (0.0-0.1) 02/15/22 05:39 Absolute Nucleated RBC 0.00 x10^3/uL 02/15/22 05:39 Nucleated RBC % 0.0 /100WBC 02/15/22 05:39 Sodium 134 mmol/L (135-145) L 02/15/22 05:39 Potassium 4.2 mmol/L (3.5-5.0) 02/15/22 05:39 Chloride 100 mmol/L (101-111) L 02/15/22 05:39 Carbon Dioxide 24 mmol/L (21-32) 02/15/22 05:39 Anion Gap 10.0 (6-13) 02/15/22 05:39 BUN 10 mg/dL (6-20) 02/15/22 05:39 Creatinine 0.7 mg/dL (0.6-1.2) 02/15/22 05:39 Estimated GFR (MDRD) 121 (>89) 02/15/22 05:39 Glucose 223 mg/dL (70-100) H 02/15/22 05:39 POC Whole Bld Glucose 260 mg/dL (70 - 100) H 02/15/22 11:08 Estimat Average Glucose 326 mg/dL (70-100) H 02/13/22 16:47 Hemoglobin A1c % 13.0 % (4.27-6.07) H 02/13/22 16:47 Calcium 8.4 mg/dL (8.5-10.3) L 02/15/22 05:39 Total Bilirubin 0.4 mg/dL (0.2-1.0) 02/13/22 16:47 AST 14 IU/L (10-42) 02/13/22 16:47 ALT 23 IU/L (10-60) 02/13/22 16:47 Alkaline Phosphatase 68 IU/L (42-121) 02/13/22 16:47 C-Reactive Protein 8.0 mg/dL (0-1.0) H 02/15/22 05:39 Total Protein 6.8 g/dL (6.7-8.2) 02/13/22 16:47 Albumin 3.1 g/dL (3.2-5.5) L 02/13/22 16:47 Globulin 3.7 g/dL (2.1-4.2) 02/13/22 16:47 Albumin/Globulin Ratio 0.8 (1.0-2.2) L 02/13/22 16:47 Lipase 26 U/L (22-51) 02/13/22 16:47 Nasal Adenovirus (PCR) NOT DETECTED 02/13/22 18:00 Nasal B. parapertussis DNA (PCR) NOT DETECTED 02/13/22 18:00 Nasal Coronavir 229E PCR NOT DETECTED 02/13/22 18:00 Nasal Coronavir HKU1 PCR NOT DETECTED 02/13/22 18:00 Nasal Coronavir NL63 PCR NOT DETECTED 02/13/22 18:00 Nasal Coronavir OC43 PCR NOT DETECTED 02/13/22 18:00 Nasal Enterovir/Rhinovir PCR NOT DETECTED 02/13/22 18:00 Nasal Influenza B PCR NOT DETECTED 02/13/22 18:00 Nasal Influenza A PCR NOT DETECTED 02/13/22 18:00 Nasal Parainfluen 1 PCR NOT DETECTED 02/13/22 18:00 Nasal Parainfluen 2 PCR NOT DETECTED 02/13/22 18:00 Nasal Parainfluen 3 PCR NOT DETECTED 02/13/22 18:00 Nasal Parainfluen 4 PCR NOT DETECTED 02/13/22 18:00 Nasal RSV (PCR) NOT DETECTED 02/13/22 18:00 Nasal B.pertussis DNA PCR NOT DETECTED 02/13/22 18:00 Nasal C.pneumoniae (PCR) NOT DETECTED 02/13/22 18:00 [place] Human Metapneumo PCR NOT DETECTED 02/13/22 18:00 Nasal M.pneumoniae (PCR) NOT DETECTED 02/13/22 18:00 Nasal SARS-CoV-2 (PCR) NOT DETECTED 02/13/22 18:00
[2022-02-15] MEDS ORDERED: IOVERSOL 320 100 ML VIAL IVP ONE ×2 (15:18→16:11)
--- NOTE | 2022-02-15 16:21 | CT Report ---
PROCEDURE: LOWER EXTREMITY W - LT INDICATIONS: Eval L foot for osteo TECHNIQUE: After administration of contrast 3 mm axial sections acquired of the left foot, with coronal and sagi ttal reformats. For radiation dose reduction, the following was used: automated exposure control, a djustment of mA and/or kV according to patient size. CONTRAST: IV CONTRAST: Optiray 320 ml: 100 PO CONTRAST: *NO PO CONTRAST COMPARISON: None. FINDINGS: BONES: No acute, displaced fracture or dislocation. No cortical destruction is appreciated. Small seema caneal enthesophytes. 4 mm, well-corticated lucency in the talar dome, compatible with osteochondral injury. Bipartite lateral hallux sesamoid. SOFT TISSUES: Diffuse vascular calcifications and soft tissue edema. No well-formed fluid collection is appreciated to suggest an abscess. IMPRESSION: 1.No CT evidence of osteomyelitis. Reviewed by: Ihsan Dickerson MD on 02/15/2022 4:20 PM PDT Approved by: Ihsan Dickerson MD on 02/15/2022 4:20 PM PDT Station ID: [id number]
[2022-02-15] MEDS: INSULIN GLARGINE 300 UNIT/3 ML PEN SUBQ SCH (20:15)
[2022-02-16] MEDS: VANCOMYCIN INJ 2 GM in SODIUM CHLORIDE 0.9% 500 ML IV SCH ×2 (00:54→12:59)
[2022-02-16] MEDS: AMPICILLIN/SULBACTAM 3 GM in SODIUM CHLORIDE 0.9% MINIBAG 100 ML IV SCH (05:55)
[2022-02-16 06:11] LABS: BASOPHILS % (AUTO) 0.4 %; EOSINOPHILS # (AUTO) 0.2 10^3/uL (0.0-0.7); EOSINOPHILS % (AUTO) 2.5 %; HCT - HEMATOCRIT 41.5 % (42.0-52.0); HGB - HEMOGLOBIN 13.7 g/dL (14.0-18.0); LYMPHOCYTES # (AUTO) 2.3 10^3/uL (1.5-3.5); LYMPHOCYTES % (AUTO) 25.2 %; MEAN CORPUSCULAR HEMOGLOBIN 28.1 pg (27.0-31.0); MEAN CORPUSCULAR VOLUME 85.2 fL (80.0-94.0); MEAN PLATELET VOLUME 10.6 fL (7.4-11.4); MONOCYTES % (AUTO) 10.4 %; NEUTROPHILS # (AUTO) 5.5 10^3/uL (1.5-6.6); NEUTROPHILS % (AUTO) 60.5 %; PLT - PLATELET COUNT 256 10^3/uL (130-450); RED BLOOD COUNT 4.87 10^6/uL (4.70-6.10); RED CELL DISTRIBUTION WIDTH 12.8 % (12.0-15.0); WHITE BLOOD COUNT 9.1 x10^3/uL (4.8-10.8)
[2022-02-16 06:33] LABS: CALCIUM 8.3 mg/dL (8.5-10.3); CREATININE 0.7 mg/dL (0.6-1.2); CRP - C-REACTIVE PROTEIN 8.5 mg/dL (0-1.0)
[2022-02-16] MEDS ORDERED: INSULIN GLARGINE 300 UNIT/3 ML PEN SUBQ SCH (08:00)
[2022-02-16] MEDS: CEFEPIME 2 GM in SODIUM CHLORIDE 0.9% MINIBAG 100 ML IV SCH ×2 (08:15→20:47)
[2022-02-16] MEDS: CHOLECALCIFEROL 25 MCG TABLET PO SCH (08:17)
[2022-02-16] MEDS: INSULIN ASPART 300 UNIT/3 ML PEN SUBQ SCH ×7 (08:21→20:43)
[2022-02-16] MEDS: INSULIN GLARGINE 300 UNIT/3 ML PEN SUBQ SCH (08:21)
[2022-02-16] MEDS: ENOXAPARIN 40 MG/0.4 ML SYRINGE SUBQ SCH (08:22)
[2022-02-16] MEDS: SODIUM CHLORIDE FLUSH 0.9% 10 ML SYRINGE IVP SCH ×2 (08:24→16:51)
[2022-02-16] MEDS: LACTOBACILLUS RHAMNOSUS GG CAPSULE PO SCH (08:24)
[2022-02-16] MEDS ORDERED: oxyCODONE 5 MG TABLET PO PRN (08:39)
--- NOTE | 2022-02-16 10:28 | CONSULTATION NOTE ---
Referring Provider Consult Date: 02/16/22 Chief Complaint - Chief Complaint Chief Complaint: pain and swelling top of right foot History of Present Illness - History Obtained From Records Reviewed: yes History obtained from: pt Exam Limitations: none - History of Present Illness HPI Comment/Other: pain and swelling top of right foot. admitted for cellulitis. ct scan yesterday no fluid collection/ abscess or bone infection. consult for possible abscess History - Past Medical History Cardiovascular: reports: Other (Palpitations (2007) - Holter showed sinus tach.) Respiratory: reports: None Neuro: reports: Headaches Endocrine/Autoimmune: reports: Type 2 diabetes GI: reports: Other (Non-alcoholic fatty liver disease) : reports: Other (Hematuria (2011) - no cystoscopy) HEENT: reports: None Psych: reports: None Musculoskeletal: reports: Chronic back pain Derm: reports: None MRSA Hx?: No - Family & Social History Family History: Mother: , CAD (CABG in her 40s), CVA/TIA (62 years old - ), Father: , SD (68 years old - ), Sister: Alive and Well (2 sisters, 1 brother, 1 daughter healthy), Brother: Alive and Well, Other family: Alive and Well Living arrangement: At home Living Situation: Alone - Substance History Use: Uses substance without health or social issues: Tobacco (Smoked for many years 2-3 cigs per day. Quit 2020.), Alcohol (Social drinker), Other (CBD (pain)) - POLST Patient has POLST: No POLST Status: Full Code Meds/Allgy - Home Medications Home Medications: Ambulatory Orders Medication Instructions Recorded Confirmed Amox/Clav 875/125 [Augmentin] 1 each PO Q12H #20 tablet 02/10/22 02/13/22 Glipizide [Glipizide ER] 5 mg PO DAILY 02/13/22 02/13/22 - Allergies Allergies/Adverse Reactions: Allergies Allergy/AdvReac Type Severity Reaction Status Date / Time No Known Drug Allergies Allergy Verified 02/13/22 16:39 Review of Systems - Other Findings Other Findings: 10 pt ros as above otherwise unremarkable Exam - Vital Signs Vital Signs: Vital Signs x48h Temp Pulse Resp BP Pulse Ox 02/16/22 07:29 36.7 C 81 18 148/79 H 97 02/16/22 05:00 36.6 C 81 18 147/89 H 96 - Physical Exam General Appearance: positive: No acute distress, Alert Eyes Bilateral: positive: PERRL, EOMI, No scleral icterus ENT: positive: No signs of dehydration Neck: positive: No JVD Respiratory: positive: No respiratory distress Abdomen: positive: No distention Extremities: positive: Other (top of left foot cellulitis and edema. slight epidermolysis.) Neurologic/Psychiatric: positive: Oriented x3 Conclusion/Plan - Problem List (1) Cellulitis Conclusion/Plan: cellulitis and edema left foot. no abscess by ct scan yesterday. plan utrasound to further determine abscess vs edema Qualifiers: Site of cellulitis: extremity Site of cellulitis of extremity: lower extremity Laterality: left Qualified Code(s): L03.116 - Cellulitis of left lower limb - Lab Results Lab results reviewed: Yes Fish Bones: 02/16/22 05:26 02/16/22 05:26
--- NOTE | 2022-02-16 10:57 | PROVIDER PROGRESS NOTE ---
Assessment/Plan - Problem List (1) Cellulitis of left foot Assessment/Plan: 02/16 pt was admitted for left foot dorsum cellulitis. pt has pus and drainage on left dorsum of foot, CT show no Evidence for osteomyelitis. consult surgeon for Incision and drainage (I&D). Switch to cefepime with vancomycin, patient had uncontrolled diabetes. Continue pain control Order the drainage culture. (2) Diabetes mellitus type 2 with complications, uncontrolled Patient had A1c 13, uncontrolled diabetes, we will add breakfast Lantus and scheduled 3 times of Novolog, Plus sliding scale, ACH S glucose check, continue hypoglycemia protocol (3) Morbid obesity Conclusion/Plan: Weight at admission 118kg and BMI of 40.7. Pt agreed to nutritional consult. (4) Hyponatremia Conclusion/Plan: Na 134 on today. (5) Hypertension associated with diabetes stable. - Current Meds Current Meds: Current Medications Generic Name Dose Route Start Last Admin Trade Name Freq PRN Reason Stop Dose Admin Acetaminophen 650 mg 02/13/22 17:36 02/14/22 17:22 Acetaminophen 325 Mg Tablet PO 650 mg Q4HR PRN Administration Pain 1 to 4 Cholecalciferol 50 mcg 02/14/22 17:00 02/16/22 08:17 Cholecalciferol 25 Mcg Tablet PO 50 mcg DAILY [facility]IOR Administration Enoxaparin Sodium 40 mg 02/14/22 09:00 02/16/22 08:22 Enoxaparin 40 Mg/0.4 Ml Syringe SUBQ 40 mg DAILY [facility]IOR Administration Vancomycin HCl 2 gm/ Sodium 500 mls @ 250 mls/hr 02/14/22 13:00 02/16/22 03:26 Chloride IV Infused Q12H [facility]IOR Infusion Cefepime HCl 2 gm/ Sodium 100 mls @ 200 mls/hr 02/16/22 09:00 02/16/22 09:00 Chloride IV Infused BID [facility] Infusion Insulin Aspart 3 - 11 unit 02/14/22 21:00 02/16/22 08:22 Insulin Aspart 300 Unit/3 Ml Pen SUBQ 5 unit 0800,1200,1700,2100 [facility]IOR Administration Protocol Insulin Glargine 10 unit 02/13/22 21:00 02/16/22 08:21 Insulin Glargine 300 Unit/3 Ml Pen SUBQ 10 unit QPM [facility]IOR Administration Insulin Glargine 5 unit 02/16/22 08:00 02/16/22 08:24 Insulin Glargine 300 Unit/3 Ml Pen SUBQ 5 unit QDBREAKFAST [facility]IOR Administration Ketorolac Tromethamine 30 mg 02/13/22 21:48 02/15/22 20:10 Ketorolac 30 Mg/Ml Vial IVP 02/18/22 21:47 30 mg Q6HR PRN Administration PAIN Lactobacillus Rhamnosus 1 cap 02/14/22 17:00 02/16/22 08:24 Lactobacillus Rhamnosus Gg Capsule PO 1 cap DAILY [facility]IOR Administration Sodium Chloride 10 ml 02/13/22 17:36 02/15/22 20:10 Sodium Chloride Flush 0.9% 10 Ml Syringe IVP 10 ml PRN PRN Administration NEEDED PER PROVIDER ORDERS Sodium Chloride 10 ml 02/14/22 01:00 02/16/22 08:24 Sodium Chloride Flush 0.9% 10 Ml Syringe IVP 10 ml 0100,0900,1700 Y[facility]IOR Administration - Lab Result Fish Bone Diagrams: 02/16/22 05:26 02/16/22 05:26 - Additional Planning My Orders: My Active Orders 02/16/22 General Surgery Consult [CONS] Routine CUL,WOUND (AEROBIC) [RM] Stat 02/16/22 08:00 Insulin Glargine [Lantus Solostar] 5 unit SUBQ QDBREAKFAST 02/16/22 08:39 oxyCODONE [Roxicodone] 5 mg PO Q4HR PRN 02/16/22 09:00 Cefepime 2 gm Sodium Chloride 0.9% Minibag [Normal Saline 0.9% Minibag] 100 ml IV BID 02/16/22 10:50 Admit [Admit \ Transfer \ Status] [RC] .ONCE 02/16/22 12:00 Insulin Aspart [NovoLOG] 7 unit SUBQ TIDWM Subjective - Subjective Patient Reports: Resting Comfortably Objective Vital Signs: Vital Signs - 24 hr 02/15/22 02/15/22 02/15/22 11:14 16:41 20:19 Temperature 37 C 37.2 C 37.0 C Heart Rate [ 94 89 94 Brachial] Respiratory 16 18 18 Rate Blood Pressure 134/71 H 139/64 H 144/62 H [Right Brachial artery] O2 Saturation 98 98 100 02/16/22 02/16/22 02/16/22 00:07 05:00 07:29 Temperature 36.9 C 36.6 C 36.7 C Heart Rate [ 85 81 81 Brachial] Respiratory 18 18 18 Rate Blood Pressure 138/65 H 147/89 H 148/79 H [Right Brachial artery] O2 Saturation 95 96 97 Oxygen O2 Source Room air I&O (Last 24 Hrs): Intake and Output Totals x24h 02/14/22 02/15/22 02/16/22 23:59 23:59 23:59 Intake Total 2560 2400 1330 Balance 2560 2400 1330 General: Alert, Oriented x3, Cooperative, No acute distress HEENT: Atraumatic Neck: Supple Lymphatic: no adenopathy Neuro: Alert, Non Focal, Oriented Times 3 Cardiovascular: Regular rate, Normal S1, Normal S2 Respiratory: Chest non-tender, No respiratory distress Abdomen: Normal bowel sounds, Soft, No tenderness Extremities: Normal pulses, Other (Left dorsal of feet with drainage on the dorsum and swelling, erythema as well.) - Results Results: Laboratory Results WBC 9.1 x10^3/uL (4.8-10.8) 02/16/22 05:26 RBC 4.87 10^6/uL (4.70-6.10) 02/16/22 05:26 Hgb 13.7 g/dL (14.0-18.0) L 02/16/22 05:26 Hct 41.5 % (42.0-52.0) L 02/16/22 05:26 MCV 85.2 fL (80.0-94.0) 02/16/22 05:26 MCH 28.1 pg (27.0-31.0) 02/16/22 05:26 MCHC 33.0 g/dL (32.0-36.0) 02/16/22 05:26 RDW 12.8 % (12.0-15.0) 02/16/22 05:26 Plt Count 256 10^3/uL (130-450) 02/16/22 05:26 MPV 10.6 fL (7.4-11.4) 02/16/22 05:26 Neut # (Auto) 5.5 10^3/uL (1.5-6.6) 02/16/22 05:26 Lymph # (Auto) 2.3 10^3/uL (1.5-3.5) 02/16/22 05:26 [place] # (Auto) 1.0 10^3/uL (0.0-1.0) 02/16/22 05:26 Eos # (Auto) 0.2 10^3/uL (0.0-0.7) 02/16/22 05:26 Baso # (Auto) 0.0 10^3/uL (0.0-0.1) 02/16/22 05:26 Absolute Nucleated RBC 0.00 x10^3/uL 02/16/22 05:26 Nucleated RBC % 0.0 /100WBC 02/16/22 05:26 Sodium 134 mmol/L (135-145) L 02/16/22 05:26 Potassium 4.0 mmol/L (3.5-5.0) 02/16/22 05:26 Chloride 101 mmol/L (101-111) 02/16/22 05:26 Carbon Dioxide 24 mmol/L (21-32) 02/16/22 05:26 Anion Gap 9.0 (6-13) 02/16/22 05:26 BUN 14 mg/dL (6-20) 02/16/22 05:26 Creatinine 0.7 mg/dL (0.6-1.2) 02/16/22 05:26 Estimated GFR (MDRD) 121 (>89) 02/16/22 05:26 Glucose 236 mg/dL (70-100) H 02/16/22 05:26 POC Whole Bld Glucose 203 mg/dL (70 - 100) H 02/16/22 07:22 Estimat Average Glucose 326 mg/dL (70-100) H 02/13/22 16:47 Hemoglobin A1c % 13.0 % (4.27-6.07) H 02/13/22 16:47 Calcium 8.3 mg/dL (8.5-10.3) L 02/16/22 05:26 Total Bilirubin 0.4 mg/dL (0.2-1.0) 02/13/22 16:47 AST 14 IU/L (10-42) 02/13/22 16:47 ALT 23 IU/L (10-60) 02/13/22 16:47 Alkaline Phosphatase 68 IU/L (42-121) 02/13/22 16:47 C-Reactive Protein 8.5 mg/dL (0-1.0) H 02/16/22 05:26 Total Protein 6.8 g/dL (6.7-8.2) 02/13/22 16:47 Albumin 3.1 g/dL (3.2-5.5) L 02/13/22 16:47 Globulin 3.7 g/dL (2.1-4.2) 02/13/22 16:47 Albumin/Globulin Ratio 0.8 (1.0-2.2) L 02/13/22 16:47 Lipase 26 U/L (22-51) 02/13/22 16:47 Nasal Adenovirus (PCR) NOT DETECTED 02/13/22 18:00 Nasal B. parapertussis DNA (PCR) NOT DETECTED 02/13/22 18:00 Nasal Coronavir 229E PCR NOT DETECTED 02/13/22 18:00 Nasal Coronavir HKU1 PCR NOT DETECTED 02/13/22 18:00 Nasal Coronavir NL63 PCR NOT DETECTED 02/13/22 18:00 Nasal Coronavir OC43 PCR NOT DETECTED 02/13/22 18:00 Nasal Enterovir/Rhinovir PCR NOT DETECTED 02/13/22 18:00 Nasal Influenza B PCR NOT DETECTED 02/13/22 18:00 Nasal Influenza A PCR NOT DETECTED 02/13/22 18:00 Nasal Parainfluen 1 PCR NOT DETECTED 02/13/22 18:00 Nasal Parainfluen 2 PCR NOT DETECTED 02/13/22 18:00 Nasal Parainfluen 3 PCR NOT DETECTED 02/13/22 18:00 Nasal Parainfluen 4 PCR NOT DETECTED 02/13/22 18:00 Nasal RSV (PCR) NOT DETECTED 02/13/22 18:00 Nasal B.pertussis DNA PCR NOT DETECTED 02/13/22 18:00 Nasal C.pneumoniae (PCR) NOT DETECTED 02/13/22 18:00 Jean Paul Human Metapneumo PCR NOT DETECTED 02/13/22 18:00 Nasal M.pneumoniae (PCR) NOT DETECTED 02/13/22 18:00 Nasal SARS-CoV-2 (PCR) NOT DETECTED 02/13/22 18:00 ABX Reporting Has patient been on IV antibiotics over the past 48 hours?: Yes Current Medications - Current Medications Current Medications: Active Medications Acetaminophen (Acetaminophen 325 Mg Tablet) 650 mg PO Q4HR PRN PRN Reason: Pain 1 to 4 Last Admin: 02/14/22 17:22 Dose: 650 mg Cholecalciferol (Cholecalciferol 25 Mcg Tablet) 50 mcg PO DAILY [facility] Last Admin: 02/16/22 08:17 Dose: 50 mcg Enoxaparin Sodium (Enoxaparin 40 Mg/0.4 Ml Syringe) 40 mg SUBQ DAILY [facility] Last Admin: 02/16/22 08:22 Dose: 40 mg Vancomycin HCl 2 gm/ Sodium (Chloride) 500 mls @ 250 mls/hr IV Q12H [facility] Last Admin: 02/16/22 12:59 Dose: 250 mls/hr Cefepime HCl 2 gm/ Sodium (Chloride) 100 mls @ 200 mls/hr IV BID [facility] Last Infusion: 02/16/22 09:00 Dose: Infused Insulin Aspart (Insulin Aspart 300 Unit/3 Ml Pen) 3 - 11 unit SUBQ 0800,1200,1700,2100 [facility]; Protocol Last Admin: 02/16/22 11:55 Dose: 7 unit Insulin Aspart (Insulin Aspart 300 Unit/3 Ml Pen) 7 unit SUBQ TIDWM [facility]; Protocol Last Admin: 02/16/22 11:56 Dose: 7 unit Insulin Glargine (Insulin Glargine 300 Unit/3 Ml Pen) 10 unit SUBQ QPM [facility] Last Admin: 02/16/22 08:21 Dose: 10 unit Insulin Glargine (Insulin Glargine 300 Unit/3 Ml Pen) 5 unit SUBQ QDBREAKFAST [facility] Last Admin: 02/16/22 08:24 Dose: 5 unit Ketorolac Tromethamine (Ketorolac 30 Mg/Ml Vial) 30 mg IVP Q6HR PRN PRN Reason: PAIN Stop: 02/18/22 21:47 Last Admin: 02/15/22 20:10 Dose: 30 mg Lactobacillus Rhamnosus (Lactobacillus Rhamnosus Gg Capsule) 1 cap PO DAILY [facility] Last Admin: 02/16/22 08:24 Dose: 1 cap Ondansetron HCl (Ondansetron Odt 4 Mg Tablet) 4 mg TL Q6HR PRN PRN Reason: Nausea / Vomiting Ondansetron HCl (Ondansetron 4 Mg/2 Ml Vial) 4 mg IVP Q6HR PRN PRN Reason: Nausea / Vomiting Oxycodone HCl (Oxycodone 5 Mg Tablet) 5 mg PO Q4HR PRN PRN Reason: PAIN Sodium Chloride (Sodium Chloride Flush 0.9% 10 Ml Syringe) 10 ml IVP PRN PRN PRN Reason: NEEDED PER PROVIDER ORDERS Last Admin: 02/15/22 20:10 Dose: 10 ml Sodium Chloride (Sodium Chloride Flush 0.9% 10 Ml Syringe) 10 ml IVP 0100,0900,1700 [facility] Last Admin: 02/16/22 08:24 Dose: 10 ml Glipizide [Glipizide ER] 5 mg PO DAILY 02/13/22
[2022-02-16 12:09] LABS: VANCOMYCIN,TROUGH 13.9 ug/mL (10.0-20.0)
[2022-02-16] MEDS: ACETAMINOPHEN 325 MG TABLET PO PRN ×2 (15:03→20:47)
--- NOTE | 2022-02-16 16:55 | Ultrasound Report ---
PROCEDURE: Ext Limited Non Vascular INDICATIONS: LEFT FOOT ABSCESS VS EDEMA TECHNIQUE: Real-time scanning was performed of the dorsum of left foot, with image documentation. COMPARISON: None. FINDINGS: Focused ultrasound examination of the dorsum of the left foot shows diffuse subcutaneous soft tissue edema and swelling with overlying skin thickening consistent with cellulitis. No discrete drainable a bscess collection is seen. No soft tissue mass. IMPRESSION: Cellulitis over the dorsum of left foot. No discrete drainable abscess collection or sof t tissue mass is noted. Reviewed by: Mark Harris MD on 02/16/2022 4:53 PM PDT Approved by: Mark Harris MD on 02/16/2022 4:53 PM PDT Station ID: [id number]
--- NOTE | 2022-02-16 19:58 | PROVIDER PROGRESS NOTE ---
Subjective - Subjective Pt reports feeling: No change (pt seen again at 430 pm.) Objective - Vital Signs/Intake & Output Vital Signs: Vital Signs x48h Temp Pulse Resp BP Pulse Ox 02/16/22 15:04 36.9 C 84 16 147/72 H 96 Intake & Output: Intake & Output 02/13/22 02/14/22 02/15/22 02/16/22 23:59 23:59 23:59 23:59 Intake Total 350 2560 2400 3090 Balance 350 2560 2400 3090 - Objective General Appearance: positive: No acute distress, Alert Extremities: positive: Other (left foot celluliltis without change other than weeping serous fluid consistent with edema. no signs or symptoms of a necrotizing infection) - Lab Results Fish Bones: 02/16/22 05:26 02/16/22 05:26 Other Labs: Lab Results x24hrs 02/16/22 02/16/22 02/16/22 Range/Units 16:40 11:54 11:02 WBC (4.8-10.8) x10^3/uL RBC (4.70-6.10) 10^6/uL Hgb (14.0-18.0) g/dL Hct (42.0-52.0) % MCV (80.0-94.0) fL MCH (27.0-31.0) pg MCHC (32.0-36.0) g/dL RDW (12.0-15.0) % Plt Count (130-450) 10^3/uL MPV (7.4-11.4) fL Neut # (Auto) (1.5-6.6) 10^3/uL Lymph # (Auto) (1.5-3.5) 10^3/uL [place] # (Auto) (0.0-1.0) 10^3/uL Eos # (Auto) (0.0-0.7) 10^3/uL Baso # (Auto) (0.0-0.1) 10^3/uL Absolute Nucleated RBC x10^3/uL Nucleated RBC % /100WBC Sodium (135-145) mmol/L Potassium (3.5-5.0) mmol/L Chloride (101-111) mmol/L Carbon Dioxide (21-32) mmol/L Anion Gap (6-13) BUN (6-20) mg/dL Creatinine (0.6-1.2) mg/dL Estimated GFR (MDRD) (>89) Glucose (70-100) mg/dL POC Whole Bld Glucose 184 H 231 H (70 - 100) mg/dL Calcium (8.5-10.3) mg/dL C-Reactive Protein (0-1.0) mg/dL Last Dose Date Not Reportable Last Dose Time Not Reportable Vancomycin Trough 13.9 (10.0-20.0) ug/mL 02/16/22 02/16/22 02/16/22 Range/Units 07:22 05:26 05:26 WBC 9.1 (4.8-10.8) x10^3/uL RBC 4.87 (4.70-6.10) 10^6/uL Hgb 13.7 L (14.0-18.0) g/dL Hct 41.5 L (42.0-52.0) % MCV 85.2 (80.0-94.0) fL MCH 28.1 (27.0-31.0) pg MCHC 33.0 (32.0-36.0) g/dL RDW 12.8 (12.0-15.0) % Plt Count 256 (130-450) 10^3/uL MPV 10.6 (7.4-11.4) fL Neut # (Auto) 5.5 (1.5-6.6) 10^3/uL Lymph # (Auto) 2.3 (1.5-3.5) 10^3/uL [place] # (Auto) 1.0 (0.0-1.0) 10^3/uL Eos # (Auto) 0.2 (0.0-0.7) 10^3/uL Baso # (Auto) 0.0 (0.0-0.1) 10^3/uL Absolute Nucleated RBC 0.00 x10^3/uL Nucleated RBC % 0.0 /100WBC Sodium 134 L (135-145) mmol/L Potassium 4.0 (3.5-5.0) mmol/L Chloride 101 (101-111) mmol/L Carbon Dioxide 24 (21-32) mmol/L Anion Gap 9.0 (6-13) BUN 14 (6-20) mg/dL Creatinine 0.7 (0.6-1.2) mg/dL Estimated GFR (MDRD) 121 (>89) Glucose 236 H (70-100) mg/dL POC Whole Bld Glucose 203 H (70 - 100) mg/dL Calcium 8.3 L (8.5-10.3) mg/dL C-Reactive Protein 8.5 H (0-1.0) mg/dL Last Dose Date Last Dose Time Vancomycin Trough (10.0-20.0) ug/mL 02/15/22 Range/Units 20:14 WBC (4.8-10.8) x10^3/uL RBC (4.70-6.10) 10^6/uL Hgb (14.0-18.0) g/dL Hct (42.0-52.0) % MCV (80.0-94.0) fL MCH (27.0-31.0) pg MCHC (32.0-36.0) g/dL RDW (12.0-15.0) % Plt Count (130-450) 10^3/uL MPV (7.4-11.4) fL Neut # (Auto) (1.5-6.6) 10^3/uL Lymph # (Auto) (1.5-3.5) 10^3/uL [place] # (Auto) (0.0-1.0) 10^3/uL Eos # (Auto) (0.0-0.7) 10^3/uL Baso # (Auto) (0.0-0.1) 10^3/uL Absolute Nucleated RBC x10^3/uL Nucleated RBC % /100WBC Sodium (135-145) mmol/L Potassium (3.5-5.0) mmol/L Chloride (101-111) mmol/L Carbon Dioxide (21-32) mmol/L Anion Gap (6-13) BUN (6-20) mg/dL Creatinine (0.6-1.2) mg/dL Estimated GFR (MDRD) (>89) Glucose (70-100) mg/dL POC Whole Bld Glucose 275 H (70 - 100) mg/dL Calcium (8.5-10.3) mg/dL C-Reactive Protein (0-1.0) mg/dL Last Dose Date Last Dose Time Vancomycin Trough (10.0-20.0) ug/mL - Diagnostic Imaging Diagnostic Imaging Results: positive: Final report reviewed (ultrasound and ct scan no abscess or fluid to drain), Read independently Assessment/Plan - Problem List (1) Cellulitis Impression: agree with current care. ct scan, exam findings, ultrasound findings all of cellulitis with edema. no abscess, drainable fluid collection, necrotizing infection Qualifiers: Site of cellulitis: extremity Site of cellulitis of extremity: lower extremity Laterality: left Qualified Code(s): L03.116 - Cellulitis of left lower limb
[2022-02-17] MEDS: VANCOMYCIN INJ 2 GM in SODIUM CHLORIDE 0.9% 500 ML IV SCH ×2 (00:06→14:06)
[2022-02-17] MEDS: SODIUM CHLORIDE FLUSH 0.9% 10 ML SYRINGE IVP SCH ×4 (00:06→20:50)
[2022-02-17 06:03] LABS: BASOPHILS # (AUTO) 0.1 10^3/uL (0.0-0.1); BASOPHILS % (AUTO) 0.6 %; EOSINOPHILS # (AUTO) 0.2 10^3/uL (0.0-0.7); EOSINOPHILS % (AUTO) 2.6 %; HCT - HEMATOCRIT 42.3 % (42.0-52.0); HGB - HEMOGLOBIN 14.1 g/dL (14.0-18.0); LYMPHOCYTES # (AUTO) 1.6 10^3/uL (1.5-3.5); LYMPHOCYTES % (AUTO) 17.9 %; MEAN CORPUSCULAR HEMOGLOBIN 28.5 pg (27.0-31.0); MEAN CORPUSCULAR HGB CONC 33.3 g/dL (32.0-36.0); MEAN CORPUSCULAR VOLUME 85.5 fL (80.0-94.0); MEAN PLATELET VOLUME 10.4 fL (7.4-11.4); MONOCYTES # (AUTO) 0.8 10^3/uL (0.0-1.0); MONOCYTES % (AUTO) 9.4 %; NEUTROPHILS # (AUTO) 6.2 10^3/uL (1.5-6.6); NEUTROPHILS % (AUTO) 68.7 %; PLT - PLATELET COUNT 284 10^3/uL (130-450); RED BLOOD COUNT 4.95 10^6/uL (4.70-6.10); RED CELL DISTRIBUTION WIDTH 12.9 % (12.0-15.0); WHITE BLOOD COUNT 8.9 x10^3/uL (4.8-10.8)
[2022-02-17 06:08] LABS: CALCIUM 8.6 mg/dL (8.5-10.3); CREATININE 0.6 mg/dL (0.6-1.2); POTASSIUM 4.2 mmol/L (3.5-5.0)
[2022-02-17] MEDS: INSULIN ASPART 300 UNIT/3 ML PEN SUBQ SCH ×7 (10:08→20:48)
[2022-02-17] MEDS: CEFEPIME 2 GM in SODIUM CHLORIDE 0.9% MINIBAG 100 ML IV SCH ×2 (10:13→20:48)
[2022-02-17] MEDS: CHOLECALCIFEROL 25 MCG TABLET PO SCH (11:08)
[2022-02-17] MEDS: LACTOBACILLUS RHAMNOSUS GG CAPSULE PO SCH (11:08)
[2022-02-17] MEDS: ENOXAPARIN 40 MG/0.4 ML SYRINGE SUBQ SCH (11:08)
--- NOTE | 2022-02-17 12:12 | PROVIDER PROGRESS NOTE ---
Assessment/Plan - Problem List (1) Cellulitis of left foot Assessment/Plan: 02/17 pt report he feel better, swelling is reduced. Both US and CT did not support abscess. continue IV antibiotics, lab monitor 02/16 pt was admitted for left foot dorsum cellulitis. pt has pus and drainage on left dorsum of foot, CT show no Evidence for osteomyelitis. consult surgeon for Incision and drainage (I&D). Switch to cefepime with vancomycin, patient had uncontrolled diabetes. Continue pain control Order the drainage culture. (2) Diabetes mellitus type 2 with complications, uncontrolled 02/17 we order night Lantus, continue slide scale, scheduled Novolog, and hypoglycemia. Patient had A1c 13, uncontrolled diabetes, we will add breakfast Lantus and scheduled 3 times of Novolog, Plus sliding scale, ACH S glucose check, continue hypoglycemia protocol (3) Morbid obesity Conclusion/Plan: Weight at admission 118kg and BMI of 40.7. Pt agreed to nutritional consult. (4) Hyponatremia Conclusion/Plan: Na 134 on today. - Current Meds Current Meds: Current Medications Generic Name Dose Route Start Last Admin Trade Name Freq PRN Reason Stop Dose Admin Acetaminophen 650 mg 02/13/22 17:36 02/16/22 20:47 Acetaminophen 325 Mg Tablet PO 650 mg Q4HR PRN Administration Pain 1 to 4 Cholecalciferol 50 mcg 02/14/22 17:00 02/17/22 11:08 Cholecalciferol 25 Mcg Tablet PO 50 mcg DAILY [facility] Administration Enoxaparin Sodium 40 mg 02/14/22 09:00 02/17/22 11:08 Enoxaparin 40 Mg/0.4 Ml Syringe SUBQ 40 mg DAILY [facility] Administration Vancomycin HCl 2 gm/ Sodium 500 mls @ 250 mls/hr 02/14/22 13:00 02/17/22 02:10 Chloride IV Infused Q12H [facility] Infusion Cefepime HCl 2 gm/ Sodium 100 mls @ 200 mls/hr 02/16/22 09:00 02/17/22 10:13 Chloride IV 200 mls/hr BID [facility] Administration Insulin Aspart 3 - 11 unit 02/14/22 21:00 02/17/22 10:08 Insulin Aspart 300 Unit/3 Ml Pen SUBQ 7 unit 0800,1200,1700,2100 [facility] Administration Protocol Insulin Aspart 7 unit 02/16/22 12:00 02/17/22 10:09 Insulin Aspart 300 Unit/3 Ml Pen SUBQ 7 unit TIDWM [facility] Administration Protocol Ketorolac Tromethamine 30 mg 02/13/22 21:48 02/15/22 20:10 Ketorolac 30 Mg/Ml Vial IVP 02/18/22 21:47 30 mg Q6HR PRN Administration PAIN Lactobacillus Rhamnosus 1 cap 02/14/22 17:00 02/17/22 11:08 Lactobacillus Rhamnosus Gg Capsule PO 1 cap DAILY [facility] Administration Sodium Chloride 10 ml 02/13/22 17:36 02/15/22 20:10 Sodium Chloride Flush 0.9% 10 Ml Syringe IVP 10 ml PRN PRN Administration NEEDED PER PROVIDER ORDERS Sodium Chloride 10 ml 02/14/22 01:00 02/17/22 11:13 Sodium Chloride Flush 0.9% 10 Ml Syringe IVP 10 ml 0100,0900,1700 [facility] Administration - Lab Result Fish Bone Diagrams: 02/17/22 05:28 02/17/22 05:28 - Additional Planning My Orders: My Active Orders 02/16/22 12:00 Insulin Aspart [NovoLOG] 7 unit SUBQ TIDWM 02/17/22 21:00 Insulin Glargine [Lantus Solostar] 15 unit SUBQ QPM 02/18/22 01:00 GLUCOSE [CHEM] Timed Subjective - Subjective Patient Reports: Feeling Better, Resting Comfortably Objective Vital Signs: Vital Signs - 24 hr 02/16/22 02/16/22 02/17/22 15:04 20:52 00:02 Temperature 36.9 C 36.8 C 36.8 C Heart Rate [ 84 86 82 Brachial] Respiratory 16 18 16 Rate Blood Pressure 147/72 H 136/68 H 148/76 H [Right Brachial artery] O2 Saturation 96 96 96 02/17/22 08:17 Temperature 36.5 C Heart Rate [ 88 Brachial] Respiratory 16 Rate Blood Pressure 143/79 H [Right Brachial artery] O2 Saturation 95 Oxygen O2 Source Room air I&O (Last 24 Hrs): Intake and Output Totals x24h 02/15/22 02/16/22 02/17/22 23:59 23:59 23:59 Intake Total 2400 3640 500 Balance 2400 3640 500 General: Alert, Oriented x3, Cooperative, No acute distress HEENT: Atraumatic Neck: Supple Lymphatic: no adenopathy Neuro: Alert, Non Focal, Oriented Times 3 Cardiovascular: Regular rate, Normal S1, Normal S2 Respiratory: Chest non-tender, No respiratory distress Abdomen: Normal bowel sounds, Soft Extremities: Normal pulses, Other (erythema and mild to moderate swelling at dorsum of left foot) - Results Results: Laboratory Results WBC 8.9 x10^3/uL (4.8-10.8) 02/17/22 05:28 RBC 4.95 10^6/uL (4.70-6.10) 02/17/22 05:28 Hgb 14.1 g/dL (14.0-18.0) 02/17/22 05:28 Hct 42.3 % (42.0-52.0) 02/17/22 05: MCV 85.5 fL (80.0-94.0) 02/17/22 05:28 MCH 28.5 pg (27.0-31.0) 02/17/22 05: MCHC 33.3 g/dL (32.0-36.0) 02/17/22 05:28 RDW 12.9 % (12.0-15.0) 02/17/22 05:28 Plt Count 284 10^3/uL (130-450) 02/17/22 05:28 MPV 10.4 fL (7.4-11.4) 02/17/22 05:28 Neut # (Auto) 6.2 10^3/uL (1.5-6.6) 02/17/22 05:28 Lymph # (Auto) 1.6 10^3/uL (1.5-3.5) 02/17/22 05:28 [place] # (Auto) 0.8 10^3/uL (0.0-1.0) 02/17/22 05:28 Eos # (Auto) 0.2 10^3/uL (0.0-0.7) 02/17/22 05:28 Baso # (Auto) 0.1 10^3/uL (0.0-0.1) 02/17/22 05:28 Absolute Nucleated RBC 0.00 x10^3/uL 02/17/22 05:28 Nucleated RBC % 0.0 /100WBC 02/17/22 05:28 Sodium 133 mmol/L (135-145) L 02/17/22 05:28 Potassium 4.2 mmol/L (3.5-5.0) 02/17/22 05:28 Chloride 99 mmol/L (101-111) L 02/17/22 05:28 Carbon Dioxide 24 mmol/L (21-32) 02/17/22 05:28 Anion Gap 10.0 (6-13) 02/17/22 05:28 BUN 10 mg/dL (6-20) 02/17/22 05:28 Creatinine 0.6 mg/dL (0.6-1.2) 02/17/22 05:28 Estimated GFR (MDRD) 144 (>89) 02/17/22 05:28 Glucose 239 mg/dL (70-100) H 02/17/22 05:28 POC Whole Bld Glucose 262 mg/dL (70 - 100) H 02/17/22 11:41 Estimat Average Glucose 326 mg/dL (70-100) H 02/13/22 16:47 Hemoglobin A1c % 13.0 % (4.27-6.07) H 02/13/22 16:47 Calcium 8.6 mg/dL (8.5-10.3) 02/17/22 05:28 Total Bilirubin 0.4 mg/dL (0.2-1.0) 02/13/22 16:47 AST 14 IU/L (10-42) 02/13/22 16:47 ALT 23 IU/L (10-60) 02/13/22 16:47 Alkaline Phosphatase 68 IU/L (42-121) 02/13/22 16:47 C-Reactive Protein 8.5 mg/dL (0-1.0) H 02/16/22 05:26 Total Protein 6.8 g/dL (6.7-8.2) 02/13/22 16:47 Albumin 3.1 g/dL (3.2-5.5) L 02/13/22 16:47 Globulin 3.7 g/dL (2.1-4.2) 02/13/22 16:47 Albumin/Globulin Ratio 0.8 (1.0-2.2) L 02/13/22 16:47 Lipase 26 U/L (22-51) 02/13/22 16:47 Nasal Adenovirus (PCR) NOT DETECTED 02/13/22 18:00 Nasal B. parapertussis DNA (PCR) NOT DETECTED 02/13/22 18:00 Nasal Coronavir 229E PCR NOT DETECTED 02/13/22 18:00 Nasal Coronavir HKU1 PCR NOT DETECTED 02/13/22 18:00 Nasal Coronavir NL63 PCR NOT DETECTED 02/13/22 18:00 Nasal Coronavir OC43 PCR NOT DETECTED 02/13/22 18:00 Nasal Enterovir/Rhinovir PCR NOT DETECTED 02/13/22 18:00 Nasal Influenza B PCR NOT DETECTED 02/13/22 18:00 Nasal Influenza A PCR NOT DETECTED 02/13/22 18:00 Nasal Parainfluen 1 PCR NOT DETECTED 02/13/22 18:00 Nasal Parainfluen 2 PCR NOT DETECTED 02/13/22 18:00 Nasal Parainfluen 3 PCR NOT DETECTED 02/13/22 18:00 Nasal Parainfluen 4 PCR NOT DETECTED 02/13/22 18:00 Nasal RSV (PCR) NOT DETECTED 02/13/22 18:00 Nasal B.pertussis DNA PCR NOT DETECTED 02/13/22 18:00 Nasal C.pneumoniae (PCR) NOT DETECTED 02/13/22 18:00 [place] Human Metapneumo PCR NOT DETECTED 02/13/22 18:00 Nasal M.pneumoniae (PCR) NOT DETECTED 02/13/22 18:00 Nasal SARS-CoV-2 (PCR) NOT DETECTED 02/13/22 18:00 Last Dose Date Not Reportable 02/16/22 11:54 Last Dose Time Not Reportable 02/16/22 11:54 Vancomycin Trough 13.9 ug/mL (10.0-20.0) 02/16/22 11:54 ABX Reporting Has patient been on IV antibiotics over the past 48 hours?: Yes Current Medications - Current Medications Current Medications: Active Medications Acetaminophen (Acetaminophen 325 Mg Tablet) 650 mg PO Q4HR PRN PRN Reason: Pain 1 to 4 Last Admin: 02/16/22 20:47 Dose: 650 mg Cholecalciferol (Cholecalciferol 25 Mcg Tablet) 50 mcg PO DAILY [facility] Last Admin: 02/17/22 11:08 Dose: 50 mcg Enoxaparin Sodium (Enoxaparin 40 Mg/0.4 Ml Syringe) 40 mg SUBQ DAILY [facility] Last Admin: 02/17/22 11:08 Dose: 40 mg Vancomycin HCl 2 gm/ Sodium (Chloride) 500 mls @ 250 mls/hr IV Q12H [facility] Last Infusion: 02/17/22 02:10 Dose: Infused Cefepime HCl 2 gm/ Sodium (Chloride) 100 mls @ 200 mls/hr IV BID [facility] Last Admin: 02/17/22 10:13 Dose: 200 mls/hr Insulin Aspart (Insulin Aspart 300 Unit/3 Ml Pen) 3 - 11 unit SUBQ 0800,1200,1700,2100 [facility]; Protocol Last Admin: 02/17/22 10:08 Dose: 7 unit Insulin Aspart (Insulin Aspart 300 Unit/3 Ml Pen) 7 unit SUBQ TIDWM [facility]; Protocol Last Admin: 02/17/22 10:09 Dose: 7 unit Insulin Glargine (Insulin Glargine 300 Unit/3 Ml Pen) 15 unit SUBQ QPM [facility] Ketorolac Tromethamine (Ketorolac 30 Mg/Ml Vial) 30 mg IVP Q6HR PRN PRN Reason: PAIN Stop: 02/18/22 21:47 Last Admin: 02/15/22 20:10 Dose: 30 mg Lactobacillus Rhamnosus (Lactobacillus Rhamnosus Gg Capsule) 1 cap PO DAILY [facility] Last Admin: 02/17/22 11:08 Dose: 1 cap Ondansetron HCl (Ondansetron Odt 4 Mg Tablet) 4 mg TL Q6HR PRN PRN Reason: Nausea / Vomiting Ondansetron HCl (Ondansetron 4 Mg/2 Ml Vial) 4 mg IVP Q6HR PRN PRN Reason: Nausea / Vomiting Oxycodone HCl (Oxycodone 5 Mg Tablet) 5 mg PO Q4HR PRN PRN Reason: PAIN Sodium Chloride (Sodium Chloride Flush 0.9% 10 Ml Syringe) 10 ml IVP PRN PRN PRN Reason: NEEDED PER PROVIDER ORDERS Last Admin: 02/15/22 20:10 Dose: 10 ml Sodium Chloride (Sodium Chloride Flush 0.9% 10 Ml Syringe) 10 ml IVP 0100,0900,1700 [facility] Last Admin: 02/17/22 11:13 Dose: 10 ml Glipizide [Glipizide ER] 5 mg PO DAILY 02/13/22
[2022-02-17] MEDS: ACETAMINOPHEN 325 MG TABLET PO PRN (13:38)
[2022-02-17] MEDS: INSULIN GLARGINE 300 UNIT/3 ML PEN SUBQ SCH (20:50)
[2022-02-18] MEDS: VANCOMYCIN INJ 2 GM in SODIUM CHLORIDE 0.9% 500 ML IV SCH ×2 (00:10→13:59)
[2022-02-18 06:28] LABS: BASOPHILS # (AUTO) 0.1 10^3/uL (0.0-0.1); BASOPHILS % (AUTO) 0.5 %; EOSINOPHILS # (AUTO) 0.2 10^3/uL (0.0-0.7); EOSINOPHILS % (AUTO) 2.1 %; HGB - HEMOGLOBIN 14.2 g/dL (14.0-18.0); LYMPHOCYTES # (AUTO) 1.8 10^3/uL (1.5-3.5); LYMPHOCYTES % (AUTO) 18.5 %; MEAN CORPUSCULAR HEMOGLOBIN 28.3 pg (27.0-31.0); MEAN CORPUSCULAR VOLUME 85.7 fL (80.0-94.0); MEAN PLATELET VOLUME 10.2 fL (7.4-11.4); MONOCYTES # (AUTO) 0.9 10^3/uL (0.0-1.0); MONOCYTES % (AUTO) 9.4 %; NEUTROPHILS # (AUTO) 6.5 10^3/uL (1.5-6.6); NEUTROPHILS % (AUTO) 68.8 %; PLT - PLATELET COUNT 280 10^3/uL (130-450); RED BLOOD COUNT 5.02 10^6/uL (4.70-6.10); RED CELL DISTRIBUTION WIDTH 12.9 % (12.0-15.0); WHITE BLOOD COUNT 9.5 x10^3/uL (4.8-10.8)
[2022-02-18 06:46] LABS: CALCIUM 8.8 mg/dL (8.5-10.3); CREATININE 0.6 mg/dL (0.6-1.2); CRP - C-REACTIVE PROTEIN 6.2 mg/dL (0-1.0); POTASSIUM 4.1 mmol/L (3.5-5.0)
[2022-02-18] MEDS: INSULIN ASPART 300 UNIT/3 ML PEN SUBQ SCH ×7 (07:46→22:40)
[2022-02-18] MEDS: ACETAMINOPHEN 325 MG TABLET PO PRN (08:06)
[2022-02-18] MEDS: ENOXAPARIN 40 MG/0.4 ML SYRINGE SUBQ SCH (09:33)
[2022-02-18] MEDS: CHOLECALCIFEROL 25 MCG TABLET PO SCH (09:33)
[2022-02-18] MEDS: LACTOBACILLUS RHAMNOSUS GG CAPSULE PO SCH (09:33)
[2022-02-18] MEDS: SODIUM CHLORIDE FLUSH 0.9% 10 ML SYRINGE IVP SCH ×2 (09:33→16:58)
[2022-02-18] MEDS: CEFEPIME 2 GM in SODIUM CHLORIDE 0.9% MINIBAG 100 ML IV SCH ×2 (09:34→22:35)
[2022-02-18] MEDS: SODIUM CHLORIDE FLUSH 0.9% 10 ML SYRINGE IVP PRN ×2 (10:45→14:00)
--- NOTE | 2022-02-18 18:52 | PROVIDER PROGRESS NOTE ---
Assessment/Plan - Problem List (1) Cellulitis of left foot Assessment/Plan: Pt was admitted for left foot dorsum cellulitis. First it was red, warm and swollen, tender then sev days later pt has pus and drainage on left dorsum of foot. CT show no evidence of osteomyelitis. We consulted Gen surgeon for Inci renetta and drainage (I&D). Both US and CT did not support abscess., therefore Dr Chou said no surgical procedure needed. Continue pain meds as needed Blood cx are neg to date We switched to cefepime with vancomycin, Will still try to obtain drainage specimen and culture it, to check if it grows a bacteria we are not covering. (2) Diabetes mellitus type 2 with complications, uncontrolled Patient had A1c 13, consistent with very poorly controlled diabetes, worened by infection. He was only on oral agents. He is now on Lantus and scheduled 3 times daily Novolog, Plus sliding scale, ACHS glucose check, continue hypoglycemia protocol (3) Morbid obesity Conclusion/Plan: Weight at admission 118kg and BMI of 40.7. Pt had nutritional consult. (4) Hyponatremia Conclusion/Plan: Na still mildly low at 134 today, probably due to elevated glu - Current Meds Current Meds: Current Medications Generic Name Dose Route Start Last Admin Trade Name Freq PRN Reason Stop Dose Admin Acetaminophen 650 mg 02/13/22 17:36 02/18/22 08:06 Acetaminophen 325 Mg Tablet PO 650 mg Q4HR PRN Administration Pain 1 to 4 Cholecalciferol 50 mcg 02/14/22 17:00 02/18/22 09:33 Cholecalciferol 25 Mcg Tablet PO 50 mcg DAILY [facility] Administration Enoxaparin Sodium 40 mg 02/14/22 09:00 02/18/22 09:33 Enoxaparin 40 Mg/0.4 Ml Syringe SUBQ 40 mg DAILY [facility] Administration Vancomycin HCl 2 gm/ Sodium 500 mls @ 250 mls/hr 02/14/22 13:00 02/18/22 18:12 Chloride IV Infused Q12H [facility] Infusion Cefepime HCl 2 gm/ Sodium 100 mls @ 200 mls/hr 02/16/22 09:00 02/18/22 10:05 Chloride IV Infused BID [facility] Infusion Insulin Aspart 3 - 11 unit 02/14/22 21:00 02/18/22 16:56 Insulin Aspart 300 Unit/3 Ml Pen SUBQ 5 unit 0800,1200,1700,2100 [facility] Administration Protocol Insulin Aspart 7 unit 02/16/22 12:00 02/18/22 16:57 Insulin Aspart 300 Unit/3 Ml Pen SUBQ 7 unit TIDWM [facility] Administration Protocol Insulin Glargine 15 unit 02/17/22 21:00 02/17/22 20:50 Insulin Glargine 300 Unit/3 Ml Pen SUBQ 15 unit QPM [facility] Administration Ketorolac Tromethamine 30 mg 02/13/22 21:48 02/15/22 20:10 Ketorolac 30 Mg/Ml Vial IVP 02/18/22 21:47 30 mg Q6HR PRN Administration PAIN Lactobacillus Rhamnosus 1 cap 02/14/22 17:00 02/18/22 09:33 Lactobacillus Rhamnosus Gg Capsule PO 1 cap DAILY [facility] Administration Sodium Chloride 10 ml 02/13/22 17:36 02/18/22 14:00 Sodium Chloride Flush 0.9% 10 Ml Syringe IVP 10 ml PRN PRN Administration NEEDED PER PROVIDER ORDERS Sodium Chloride 10 ml 02/14/22 01:00 02/18/22 16:58 Sodium Chloride Flush 0.9% 10 Ml Syringe IVP 10 ml 0100,0900,1700 [facility] Administration - Lab Result Fish Bone Diagrams: 02/19/22 05:12 02/19/22 05:12 - Additional Planning My Orders: My Active Orders 02/18/22 08:58 Miscellaenous Nursing Order [RC] ONCE 02/19/22 05:00 BMP - BASIC METABOLIC PANEL [CHEM] DAILYLAB CBC - COMP BLD CT W/AUTO DIFF [HEME] DAILYLAB Subjective - Subjective Patient Reports: Other (still swollen and red and painful foot) Nursing Reports: Other (No drainage for 2 days (when wound cx was ordered), because it has scabbed over) Objective Vital Signs: Vital Signs - 24 hr 02/18/22 02/18/22 02/18/22 00:36 07:40 16:35 Temperature 36.8 C 36.9 C 36.7 C Heart Rate [ 83 92 80 Brachial] Respiratory 18 16 16 Rate Blood Pressure 137/79 H 117/84 H 138/86 H [Right Brachial artery] O2 Saturation 93 92 97 Oxygen O2 Source Room air I&O (Last 24 Hrs): Intake and Output Totals x24h 02/16/22 02/17/22 02/18/22 23:59 23:59 23:59 Intake Total 3640 2730 2110 Balance 3640 2730 2110 General: Alert, Oriented x3 HEENT: Mucous membr. moist/pink Neck: Supple, No JVD Neuro: Alert, Non Focal Cardiovascular: Regular rate, No murmurs Respiratory: No respiratory distress Abdomen: Soft Extremities: Other (Redness and elevation, central scab and purple discoloration of dorsum of L foot, no drainage) - Results Results: Laboratory Results WBC 9.5 x10^3/uL (4.8-10.8) 02/18/22 05:58 RBC 5.02 10^6/uL (4.70-6.10) 02/18/22 05:58 Hgb 14.2 g/dL (14.0-18.0) 02/18/22 05:58 Hct 43.0 % (42.0-52.0) 02/18/22 05:58 MCV 85.7 fL (80.0-94.0) 02/18/22 05:58 MCH 28.3 pg (27.0-31.0) 02/18/22 05:58 MCHC 33.0 g/dL (32.0-36.0) 02/18/22 05:58 RDW 12.9 % (12.0-15.0) 02/18/22 05:58 Plt Count 280 10^3/uL (130-450) 02/18/22 05:58 MPV 10.2 fL (7.4-11.4) 02/18/22 05:58 Neut # (Auto) 6.5 10^3/uL (1.5-6.6) 02/18/22 05:58 Lymph # (Auto) 1.8 10^3/uL (1.5-3.5) 02/18/22 05:58 [place] # (Auto) 0.9 10^3/uL (0.0-1.0) 02/18/22 05:58 Eos # (Auto) 0.2 10^3/uL (0.0-0.7) 02/18/22 05:58 Baso # (Auto) 0.1 10^3/uL (0.0-0.1) 02/18/22 05:58 Absolute Nucleated RBC 0.00 x10^3/uL 02/18/22 05:58 Nucleated RBC % 0.0 /100WBC 02/18/22 05:58 Sodium 134 mmol/L (135-145) L 02/18/22 05:58 Potassium 4.1 mmol/L (3.5-5.0) 02/18/22 05:58 Chloride 99 mmol/L (101-111) L 02/18/22 05:58 Carbon Dioxide 25 mmol/L (21-32) 02/18/22 05:58 Anion Gap 10.0 (6-13) 02/18/22 05:58 BUN 12 mg/dL (6-20) 02/18/22 05:58 Creatinine 0.6 mg/dL (0.6-1.2) 02/18/22 05:58 Estimated GFR (MDRD) 144 (>89) 02/18/22 05:58 Glucose 204 mg/dL (70-100) H 02/18/22 05:58 POC Whole Bld Glucose 197 mg/dL (70 - 100) H 02/18/22 16:42 Estimat Average Glucose 326 mg/dL (70-100) H 02/13/22 16:47 Hemoglobin A1c % 13.0 % (4.27-6.07) H 02/13/22 16:47 Calcium 8.8 mg/dL (8.5-10.3) 02/18/22 05:58 Total Bilirubin 0.4 mg/dL (0.2-1.0) 02/13/22 16:47 AST 14 IU/L (10-42) 02/13/22 16:47 ALT 23 IU/L (10-60) 02/13/22 16:47 Alkaline Phosphatase 68 IU/L (42-121) 02/13/22 16:47 C-Reactive Protein 6.2 mg/dL (0-1.0) H 02/18/22 05:58 Total Protein 6.8 g/dL (6.7-8.2) 02/13/22 16:47 Albumin 3.1 g/dL (3.2-5.5) L 02/13/22 16:47 Globulin 3.7 g/dL (2.1-4.2) 02/13/22 16:47 Albumin/Globulin Ratio 0.8 (1.0-2.2) L 02/13/22 16:47 Lipase 26 U/L (22-51) 02/13/22 16:47 Nasal Adenovirus (PCR) NOT DETECTED 02/13/22 18:00 Nasal B. parapertussis DNA (PCR) NOT DETECTED 02/13/22 18:00 Nasal Coronavir 229E PCR NOT DETECTED 02/13/22 18:00 Nasal Coronavir HKU1 PCR NOT DETECTED 02/13/22 18:00 Nasal Coronavir NL63 PCR NOT DETECTED 02/13/22 18:00 Nasal Coronavir OC43 PCR NOT DETECTED 02/13/22 18:00 Nasal Enterovir/Rhinovir PCR NOT DETECTED 02/13/22 18:00 Nasal Influenza B PCR NOT DETECTED 02/13/22 18:00 Nasal Influenza A PCR NOT DETECTED 02/13/22 18:00 Nasal Parainfluen 1 PCR NOT DETECTED 02/13/22 18:00 Nasal Parainfluen 2 PCR NOT DETECTED 02/13/22 18:00 Nasal Parainfluen 3 PCR NOT DETECTED 02/13/22 18:00 Nasal Parainfluen 4 PCR NOT DETECTED 02/13/22 18:00 Nasal RSV (PCR) NOT DETECTED 02/13/22 18:00 Nasal B.pertussis DNA PCR NOT DETECTED 02/13/22 18:00 Nasal C.pneumoniae (PCR) NOT DETECTED 02/13/22 18:00 Jean Paul Human Metapneumo PCR NOT DETECTED 02/13/22 18:00 Nasal M.pneumoniae (PCR) NOT DETECTED 02/13/22 18:00 Nasal SARS-CoV-2 (PCR) NOT DETECTED 02/13/22 18:00 Last Dose Date Not Reportable 02/16/22 11:54 Last Dose Time Not Reportable 02/16/22 11:54 Vancomycin Trough 13.9 ug/mL (10.0-20.0) 02/16/22 11:54
[2022-02-18] MEDS: INSULIN GLARGINE 300 UNIT/3 ML PEN SUBQ SCH (22:41)
[2022-02-19] MEDS: SODIUM CHLORIDE FLUSH 0.9% 10 ML SYRINGE IVP SCH ×3 (00:14→17:03)
[2022-02-19] MEDS: ACETAMINOPHEN 325 MG TABLET PO PRN ×2 (00:14→08:46)
[2022-02-19] MEDS: VANCOMYCIN INJ 2 GM in SODIUM CHLORIDE 0.9% 500 ML IV SCH ×2 (00:14→12:33)
[2022-02-19 05:23] LABS: BASOPHILS # (AUTO) 0.1 10^3/uL (0.0-0.1); BASOPHILS % (AUTO) 0.5 %; EOSINOPHILS # (AUTO) 0.3 10^3/uL (0.0-0.7); EOSINOPHILS % (AUTO) 2.8 %; HCT - HEMATOCRIT 42.4 % (42.0-52.0); HGB - HEMOGLOBIN 14.1 g/dL (14.0-18.0); LYMPHOCYTES % (AUTO) 20.2 %; MEAN CORPUSCULAR HEMOGLOBIN 28.3 pg (27.0-31.0); MEAN CORPUSCULAR HGB CONC 33.3 g/dL (32.0-36.0); MEAN CORPUSCULAR VOLUME 85.1 fL (80.0-94.0); MEAN PLATELET VOLUME 9.9 fL (7.4-11.4); MONOCYTES # (AUTO) 0.9 10^3/uL (0.0-1.0); MONOCYTES % (AUTO) 8.8 %; NEUTROPHILS # (AUTO) 6.7 10^3/uL (1.5-6.6); NEUTROPHILS % (AUTO) 66.8 %; PLT - PLATELET COUNT 290 10^3/uL (130-450); RED BLOOD COUNT 4.98 10^6/uL (4.70-6.10); WHITE BLOOD COUNT 10.1 x10^3/uL (4.8-10.8)
[2022-02-19 05:40] LABS: CALCIUM 8.6 mg/dL (8.5-10.3); CREATININE 0.6 mg/dL (0.6-1.2); CRP - C-REACTIVE PROTEIN 5.3 mg/dL (0-1.0)
[2022-02-19] MEDS: INSULIN ASPART 300 UNIT/3 ML PEN SUBQ SCH ×7 (07:46→20:43)
[2022-02-19] MEDS: ENOXAPARIN 40 MG/0.4 ML SYRINGE SUBQ SCH (08:45)
[2022-02-19] MEDS: CHOLECALCIFEROL 25 MCG TABLET PO SCH (08:46)
[2022-02-19] MEDS: LACTOBACILLUS RHAMNOSUS GG CAPSULE PO SCH (08:46)
[2022-02-19] MEDS: CEFEPIME 2 GM in SODIUM CHLORIDE 0.9% MINIBAG 100 ML IV SCH ×2 (08:49→21:40)
[2022-02-19] MEDS: SODIUM CHLORIDE FLUSH 0.9% 10 ML SYRINGE IVP PRN (12:34)
--- NOTE | 2022-02-19 16:31 | PROVIDER PROGRESS NOTE ---
Assessment/Plan - Problem List (1) Cellulitis of left foot Assessment/Plan: Pt was admitted for left foot dorsum cellulitis. First it was red, warm, swollen, and tender with a central bite khoi possible, then several days later pt has pus and drainage from its center, on dorsum of left foot. CT showed no e vidence of osteomyelitis. We consulted Gen surgeon for Incision and drainage (I&D). But both US and CT did not support abscess, therefore Dr Chou said no surgical procedure needed. Today Dr English, of Ortho, just looked at it briefly and did not recommend surgery. He is on empiric cefepime with vancomycin CRP has dropped from 12.9 daily to 5 today Continue pain meds as needed Blood cx are neg to date Awaiting culture from drainage specimen sent yesterday, to check if it grows a bacteria we are not covering. (2) Diabetes mellitus type 2 with complications, uncontrolled Patient had A1c 13, consistent with very poorly controlled diabetes, worsened by infection. He was only on oral agents. He is now on Lantus and scheduled 3 times daily with meals Novolog, plus sliding scale, ACHS glucose check, continue hypoglycemia protocol He will likely need new Insulin at discharge and therefore need Diabetic Teaching (3) Morbid obesity Conclusion/Plan: Weight at admission 118kg and BMI of 40.7. Pt had nutritional consult. (4) Hyponatremia Conclusion/Plan: Na still mildly low at 133 today, probably pseudhyponatremia, due to elevated glucoses. - Current Meds Current Meds: Current Medications Generic Name Dose Route Start Last Admin Trade Name Freq PRN Reason Stop Dose Admin Acetaminophen 650 mg 02/13/22 17:36 02/19/22 08:46 Acetaminophen 325 Mg Tablet PO 650 mg Q4HR PRN Administration Pain 1 to 4 Cholecalciferol 50 mcg 02/14/22 17:00 02/19/22 08:46 Cholecalciferol 25 Mcg Tablet PO 50 mcg DAILY [facility] Administration Enoxaparin Sodium 40 mg 02/14/22 09:00 02/19/22 08:45 Enoxaparin 40 Mg/0.4 Ml Syringe SUBQ 40 mg DAILY [facility] Administration Vancomycin HCl 2 gm/ Sodium 500 mls @ 250 mls/hr 02/14/22 13:00 02/19/22 14:45 Chloride IV Infused Q12H [facility] Infusion Cefepime HCl 2 gm/ Sodium 100 mls @ 200 mls/hr 02/16/22 09:00 02/19/22 09:20 Chloride IV Infused BID [facility] Infusion Insulin Aspart 3 - 11 unit 02/14/22 21:00 02/19/22 11:43 Insulin Aspart 300 Unit/3 Ml Pen SUBQ 3 unit 0800,1200,1700,2100 [facility] Administration Protocol Insulin Aspart 7 unit 02/16/22 12:00 02/19/22 11:42 Insulin Aspart 300 Unit/3 Ml Pen SUBQ 7 unit TIDWM [facility] Administration Protocol Insulin Glargine 15 unit 02/17/22 21:00 02/18/22 22:41 Insulin Glargine 300 Unit/3 Ml Pen SUBQ 15 unit QPM [facility] Administration Lactobacillus Rhamnosus 1 cap 02/14/22 17:00 02/19/22 08:46 Lactobacillus Rhamnosus Gg Capsule PO 1 cap DAILY [facility] Administration Sodium Chloride 10 ml 02/13/22 17:36 02/19/22 12:34 Sodium Chloride Flush 0.9% 10 Ml Syringe IVP 10 ml PRN PRN Administration NEEDED PER PROVIDER ORDERS Sodium Chloride 10 ml 02/14/22 01:00 02/19/22 08:46 Sodium Chloride Flush 0.9% 10 Ml Syringe IVP 10 ml 0100,0900,1700 [facility] Administration - Lab Result Fish Bone Diagrams: 02/19/22 05:12 02/19/22 05:12 Subjective - Subjective Patient Reports: Other (He took a hot shower last night and the scab on the dorsum of L foot sotened, opened and he could express yellow liquid he said. The evening RN did send a specimen of the wound fluid for culture. He soaked it in a tub this afternoon and it did not open or drain.) Nursing Reports: Other (Dr English looked at the wound and said "no surgery, treat cellulitis") Objective Vital Signs: Vital Signs - 24 hr 02/18/22 02/19/22 02/19/22 16:35 00:11 07:43 Temperature 36.7 C 36.9 C 36.6 C Heart Rate [ 80 84 78 Brachial] Respiratory 16 18 16 Rate Blood Pressure 138/86 H 129/72 128/71 [Right Brachial artery] O2 Saturation 97 96 96 02/19/22 16:03 Temperature 36.7 C Heart Rate [ 83 Brachial] Respiratory 16 Rate Blood Pressure 133/76 H [Right Brachial artery] O2 Saturation 96 Oxygen O2 Source Room air I&O (Last 24 Hrs): Intake and Output Totals x24h 02/17/22 02/18/22 02/19/22 23:59 23:59 23:59 Intake Total 2730 2660 1100 Balance 2730 2660 1100 General: Alert, No acute distress HEENT: Atraumatic, Mucous membr. moist/pink Neck: Supple, No JVD Neuro: Alert, Non Focal Cardiovascular: Regular rate Respiratory: No respiratory distress Abdomen: Soft Extremities: Other (Redness, warmth and elevation, but central scab is yellow with purple discoloration surrounding this, of dorsum of L foot, no drainage) - Results Results: Laboratory Results WBC 10.1 x10^3/uL (4.8-10.8) 02/19/22 05:12 RBC 4.98 10^6/uL (4.70-6.10) 02/19/22 05:12 Hgb 14.1 g/dL (14.0-18.0) 02/19/22 05:12 Hct 42.4 % (42.0-52.0) 02/19/22 05:12 MCV 85.1 fL (80.0-94.0) 02/19/22 05:12 MCH 28.3 pg (27.0-31.0) 02/19/22 05:12 MCHC 33.3 g/dL (32.0-36.0) 02/19/22 05:12 RDW 13.0 % (12.0-15.0) 02/19/22 05:12 Plt Count 290 10^3/uL (130-450) 02/19/22 05:12 MPV 9.9 fL (7.4-11.4) 02/19/22 05:12 Neut # (Auto) 6.7 10^3/uL (1.5-6.6) H 02/19/22 05:12 Lymph # (Auto) 2.0 10^3/uL (1.5-3.5) 02/19/22 05:12 [place] # (Auto) 0.9 10^3/uL (0.0-1.0) 02/19/22 05:12 Eos # (Auto) 0.3 10^3/uL (0.0-0.7) 02/19/22 05:12 Baso # (Auto) 0.1 10^3/uL (0.0-0.1) 02/19/22 05:12 Absolute Nucleated RBC 0.00 x10^3/uL 02/19/22 05:12 Nucleated RBC % 0.0 /100WBC 02/19/22 05:12 Sodium 133 mmol/L (135-145) L 02/19/22 05:12 Potassium 4.0 mmol/L (3.5-5.0) 02/19/22 05:12 Chloride 101 mmol/L (101-111) 02/19/22 05:12 Carbon Dioxide 23 mmol/L (21-32) 02/19/22 05:12 Anion Gap 9.0 (6-13) 02/19/22 05:12 BUN 10 mg/dL (6-20) 02/19/22 05:12 Creatinine 0.6 mg/dL (0.6-1.2) 02/19/22 05:12 Estimated GFR (MDRD) 144 (>89) 02/19/22 05:12 Glucose 174 mg/dL (70-100) H 02/19/22 05:12 POC Whole Bld Glucose 173 mg/dL (70 - 100) H 02/19/22 11:19 Estimat Average Glucose 326 mg/dL (70-100) H 02/13/22 16:47 Hemoglobin A1c % 13.0 % (4.27-6.07) H 02/13/22 16:47 Calcium 8.6 mg/dL (8.5-10.3) 02/19/22 05:12 Total Bilirubin 0.4 mg/dL (0.2-1.0) 02/13/22 16:47 AST 14 IU/L (10-42) 02/13/22 16:47 ALT 23 IU/L (10-60) 02/13/22 16:47 Alkaline Phosphatase 68 IU/L (42-121) 02/13/22 16:47 C-Reactive Protein 5.3 mg/dL (0-1.0) H 02/19/22 05:12 Total Protein 6.8 g/dL (6.7-8.2) 02/13/22 16:47 Albumin 3.1 g/dL (3.2-5.5) L 02/13/22 16:47 Globulin 3.7 g/dL (2.1-4.2) 02/13/22 16:47 Albumin/Globulin Ratio 0.8 (1.0-2.2) L 02/13/22 16:47 Lipase 26 U/L (22-51) 02/13/22 16:47 Nasal Adenovirus (PCR) NOT DETECTED 02/13/22 18:00 Nasal B. parapertussis DNA (PCR) NOT DETECTED 02/13/22 18:00 Nasal Coronavir 229E PCR NOT DETECTED 02/13/22 18:00 Nasal Coronavir HKU1 PCR NOT DETECTED 02/13/22 18:00 Nasal Coronavir NL63 PCR NOT DETECTED 02/13/22 18:00 Nasal Coronavir OC43 PCR NOT DETECTED 02/13/22 18:00 Nasal Enterovir/Rhinovir PCR NOT DETECTED 02/13/22 18:00 Nasal Influenza B PCR NOT DETECTED 02/13/22 18:00 Nasal Influenza A PCR NOT DETECTED 02/13/22 18:00 Nasal Parainfluen 1 PCR NOT DETECTED 02/13/22 18:00 Nasal Parainfluen 2 PCR NOT DETECTED 02/13/22 18:00 Nasal Parainfluen 3 PCR NOT DETECTED 02/13/22 18:00 Nasal Parainfluen 4 PCR NOT DETECTED 02/13/22 18:00 Nasal RSV (PCR) NOT DETECTED 02/13/22 18:00 Nasal B.pertussis DNA PCR NOT DETECTED 02/13/22 18:00 Nasal C.pneumoniae (PCR) NOT DETECTED 02/13/22 18:00 Jean Paul Human Metapneumo PCR NOT DETECTED 02/13/22 18:00 Nasal M.pneumoniae (PCR) NOT DETECTED 02/13/22 18:00 Nasal SARS-CoV-2 (PCR) NOT DETECTED 02/13/22 18:00 Last Dose Date Not Reportable 02/16/22 11:54 Last Dose Time Not Reportable 02/16/22 11:54 Vancomycin Trough 13.9 ug/mL (10.0-20.0) 02/16/22 11:54
[2022-02-19] MEDS: INSULIN GLARGINE 300 UNIT/3 ML PEN SUBQ SCH (20:44)
[2022-02-20] MEDS: VANCOMYCIN INJ 2 GM in SODIUM CHLORIDE 0.9% 500 ML IV SCH ×2 (00:37→13:19)
[2022-02-20] MEDS: SODIUM CHLORIDE FLUSH 0.9% 10 ML SYRINGE IVP SCH ×3 (00:37→17:02)
[2022-02-20] MEDS: ACETAMINOPHEN 325 MG TABLET PO PRN ×2 (00:48→16:09)
[2022-02-20] MEDS: INSULIN ASPART 300 UNIT/3 ML PEN SUBQ SCH ×7 (07:58→21:21)
[2022-02-20] MEDS: CHOLECALCIFEROL 25 MCG TABLET PO SCH (08:34)
[2022-02-20] MEDS: LACTOBACILLUS RHAMNOSUS GG CAPSULE PO SCH (08:34)
[2022-02-20] MEDS: SACCHAROMYCES BOULARDII 250 MG CAPSULE PO SCH ×2 (08:34→17:04)
[2022-02-20] MEDS: ENOXAPARIN 40 MG/0.4 ML SYRINGE SUBQ SCH (08:34)
[2022-02-20] MEDS: polyethylene glycoL 3350 17 GM PACKET PO SCH (08:35)
[2022-02-20] MEDS: CEFEPIME 2 GM in SODIUM CHLORIDE 0.9% MINIBAG 100 ML IV SCH ×2 (08:38→21:16)
[2022-02-20] MEDS: SODIUM CHLORIDE FLUSH 0.9% 10 ML SYRINGE IVP PRN (13:25)
--- NOTE | 2022-02-20 14:25 | Ultrasound Report ---
PROCEDURE: Ext Limited Non Vascular INDICATIONS: Abscess vs cellulitis, dorsum of L foot TECHNIQUE: Real-time scanning was performed of the left foot, with image documentation. COMPARISON: 02/16/2022 FINDINGS: There is a subcutaneous fluid collection surrounded by edematous tissues which is not disc retely walled off, but fairly well-defined, measuring about 3.8 x 2.6 x 0.8 cm. It begins roughly 3 m m below the skin surface. IMPRESSION: 1. Improved definition of the subcutaneous abscess measuring up to 3.8 cm in size. Consultation for i ncision and drainage is recommended. 2. Discussed with Dr. Dutta at 14:21 hours. Reviewed by: Josefina Banda MD on 02/20/2022 2:24 PM PDT Approved by: Josefina Banda MD on 02/20/2022 2:24 PM PDT Station ID: [id number]
--- NOTE | 2022-02-20 17:47 | PROVIDER PROGRESS NOTE ---
Assessment/Plan - Problem List (1) Cellulitis and abscess of foot, except toes Assessment/Plan: Pt was admitted for left foot dorsum cellulitis. First it was red, warm, swollen, and tender with a central bite khoi possibly, then several days later pt has pus and drainage from its center, on dorsum of left foot. The drainage was cultured and has grown nothing (but was taken after about 6 days on antibx). CT showed no evidence of osteomyelitis. We consulted Gen surgeon for Incision and drainage, but bbecause oth US and CT did not report an abscess, therefore Dr Chou said no surgical procedure needed. B;lood cx are neg to date. Today another limited US was done and report was adjusted to confirm there is a 3.8 cm abscess (which is drainable). I reached Dr Chou to re-see him, but Dr Chou Out of town til tomorrow. Dr Taveras said to keep him NPO after midnite for incision and drainage (in OR?) tomorrow. He remains on empiric cefepime with vancomycin CRP has dropped since being here Continue warm soaks Continue pain meds as needed Awaiting culture from drainage specimen sent 2 days ago, to check if it grows a bacteria we are not covering. (2) Diabetes mellitus type 2 with complications, uncontrolled Patient had A1c 13, consistent with very poorly controlled diabetes, worsened by infection. He was only on oral agents at home He is now on Lantus and scheduled 3 times daily with meals Novolog, plus sliding scale, ACHS glucose check, continue hypoglycemia protocol He will likely need new Insulin at discharge and therefore need Diabetic Teaching. Will order this today. (3) Morbid obesity Conclusion/Plan: Weight at admission 118kg and BMI of 40.7. Pt had nutritional consult. (4) Hyponatremia Conclusion/Plan: Resolved - Current Meds Current Meds: Current Medications Generic Name Dose Route Start Last Admin Trade Name Freq PRN Reason Stop Dose Admin Acetaminophen 650 mg 02/13/22 17:36 02/20/22 16:09 Acetaminophen 325 Mg Tablet PO 650 mg Q4HR PRN Administration Pain 1 to 4 Cholecalciferol 50 mcg 02/14/22 17:00 02/20/22 08:34 Cholecalciferol 25 Mcg Tablet PO 50 mcg DAILY YUNIOR Administration Enoxaparin Sodium 40 mg 02/14/22 09:00 02/20/22 08:34 Enoxaparin 40 Mg/0.4 Ml Syringe SUBQ 40 mg DAILY YUNIOR Administration Vancomycin HCl 2 gm/ Sodium 500 mls @ 250 mls/hr 02/14/22 13:00 02/20/22 16:12 Chloride IV Infused Q12H YUNIOR Infusion Cefepime HCl 2 gm/ Sodium 100 mls @ 200 mls/hr 02/16/22 09:00 02/20/22 09:10 Chloride IV Infused BID YUNIOR Infusion Insulin Aspart 3 - 11 unit 02/14/22 21:00 02/20/22 16:59 Insulin Aspart 300 Unit/3 Ml Pen SUBQ 5 unit 0800,1200,1700,2100 YUNIOR Administration Protocol Insulin Aspart 7 unit 02/16/22 12:00 02/20/22 16:59 Insulin Aspart 300 Unit/3 Ml Pen SUBQ 7 unit TIDWM YUNIOR Administration Protocol Lactobacillus Rhamnosus 1 cap 02/14/22 17:00 02/20/22 08:34 Lactobacillus Rhamnosus Gg Capsule PO 1 cap DAILY YUNIOR Administration Polyethylene Glycol 17 gm 02/20/22 09:00 02/20/22 08:35 Polyethylene Glycol 3350 17 Gm Packet PO 17 gm DAILY YUNIOR Administration Saccharomyces Boulardii 250 mg 02/20/22 08:00 02/20/22 17:04 Saccharomyces Boulardii 250 Mg Capsule PO 250 mg BIDWM YUNIOR Administration Sodium Chloride 10 ml 02/13/22 17:36 02/20/22 13:25 Sodium Chloride Flush 0.9% 10 Ml Syringe IVP 10 ml PRN PRN Administration NEEDED PER PROVIDER ORDERS Sodium Chloride 10 ml 02/14/22 01:00 02/20/22 17:02 Sodium Chloride Flush 0.9% 10 Ml Syringe IVP 10 ml 0100,0900,1700 YUNIOR Administration - Lab Result Fish Bone Diagrams: 02/19/22 05:12 02/19/22 05:12 - Diagnostic Imaging Results Diagnostic Imaging Results: Final report reviewed - Additional Planning My Orders: My Active Orders 02/20/22 Orthopedics Consult [CONS] Routine Diabetes Outpatient Education MAC [MAC] Routine 02/20/22 08:00 Saccharomyces Boulardii [Florastor] 250 mg PO BIDWM 02/20/22 11:29 Diabetic Education [RC] ONCE 02/20/22 21:00 Insulin Glargine [Lantus Solostar] 18 unit SUBQ QPM 02/21/22 05:00 BMP - BASIC METABOLIC PANEL [CHEM] DAILYLAB CBC - COMP BLD CT W/AUTO DIFF [HEME] DAILYLAB 02/22/22 05:00 BMP - BASIC METABOLIC PANEL [CHEM] DAILYLAB CBC - COMP BLD CT W/AUTO DIFF [HEME] DAILYLAB Subjective - Subjective Patient Reports: Other (Warm soaks feel good, but it has not opened to drain) Objective Vital Signs: Vital Signs - 24 hr 02/20/22 02/20/22 02/20/22 00:42 07:47 15:55 Temperature 36.9 C 36.5 C 36.6 C Heart Rate [ 84 75 81 Brachial] Respiratory 18 18 16 Rate Blood Pressure 133/77 H 137/77 H 141/81 H [Right Brachial artery] O2 Saturation 95 Oxygen O2 Source Room air I&O (Last 24 Hrs): Intake and Output Totals x24h 02/18/22 02/19/22 02/20/22 23:59 23:59 23:59 Intake Total 2659 2089 2189 Balance 2659 2089 2189 General: Alert, Oriented x3 HEENT: Mucous membr. moist/pink Neck: Supple, No JVD Neuro: Alert, Non Focal Cardiovascular: Regular rate Respiratory: No respiratory distress Abdomen: Soft Extremities: Other (Very raised and purple dorsum of left foot, central yellow area scabbed over, warm and tender) - Results Results: Laboratory Results WBC 10.1 x10^3/uL (4.8-10.8) 02/19/22 05:12 RBC 4.98 10^6/uL (4.70-6.10) 02/19/22 05:12 Hgb 14.1 g/dL (14.0-18.0) 02/19/22 05:12 Hct 42.4 % (42.0-52.0) 02/19/22 05:12 MCV 85.1 fL (80.0-94.0) 02/19/22 05:12 MCH 28.3 pg (27.0-31.0) 02/19/22 05:12 MCHC 33.3 g/dL (32.0-36.0) 02/19/22 05:12 RDW 13.0 % (12.0-15.0) 02/19/22 05:12 Plt Count 290 10^3/uL (130-450) 02/19/22 05:12 MPV 9.9 fL (7.4-11.4) 02/19/22 05:12 Neut # (Auto) 6.7 10^3/uL (1.5-6.6) H 02/19/22 05:12 Lymph # (Auto) 2.0 10^3/uL (1.5-3.5) 02/19/22 05:12 [place] # (Auto) 0.9 10^3/uL (0.0-1.0) 02/19/22 05:12 Eos # (Auto) 0.3 10^3/uL (0.0-0.7) 02/19/22 05:12 Baso # (Auto) 0.1 10^3/uL (0.0-0.1) 02/19/22 05:12 Absolute Nucleated RBC 0.00 x10^3/uL 02/19/22 05:12 Nucleated RBC % 0.0 /100WBC 02/19/22 05:12 Sodium 133 mmol/L (135-145) L 02/19/22 05:12 Potassium 4.0 mmol/L (3.5-5.0) 02/19/22 05:12 Chloride 101 mmol/L (101-111) 02/19/22 05:12 Carbon Dioxide 23 mmol/L (21-32) 02/19/22 05:12 Anion Gap 9.0 (6-13) 02/19/22 05:12 BUN 10 mg/dL (6-20) 02/19/22 05:12 Creatinine 0.6 mg/dL (0.6-1.2) 02/19/22 05:12 Estimated GFR (MDRD) 144 (>89) 02/19/22 05:12 Glucose 174 mg/dL (70-100) H 02/19/22 05:12 POC Whole Bld Glucose 216 mg/dL (70 - 100) H 02/20/22 16:32 Estimat Average Glucose 326 mg/dL (70-100) H 02/13/22 16:47 Hemoglobin A1c % 13.0 % (4.27-6.07) H 02/13/22 16:47 Calcium 8.6 mg/dL (8.5-10.3) 02/19/22 05:12 Total Bilirubin 0.4 mg/dL (0.2-1.0) 02/13/22 16:47 AST 14 IU/L (10-42) 02/13/22 16:47 ALT 23 IU/L (10-60) 02/13/22 16:47 Alkaline Phosphatase 68 IU/L (42-121) 02/13/22 16:47 C-Reactive Protein 3.8 mg/dL (0-1.0) H 02/20/22 05:52 Total Protein 6.8 g/dL (6.7-8.2) 02/13/22 16:47 Albumin 3.1 g/dL (3.2-5.5) L 02/13/22 16:47 Globulin 3.7 g/dL (2.1-4.2) 02/13/22 16:47 Albumin/Globulin Ratio 0.8 (1.0-2.2) L 02/13/22 16:47 Lipase 26 U/L (22-51) 02/13/22 16:47 Nasal Adenovirus (PCR) NOT DETECTED 02/13/22 18:00 Nasal B. parapertussis DNA (PCR) NOT DETECTED 02/13/22 18:00 Nasal Coronavir 229E PCR NOT DETECTED 02/13/22 18:00 Nasal Coronavir HKU1 PCR NOT DETECTED 02/13/22 18:00 Nasal Coronavir NL63 PCR NOT DETECTED 02/13/22 18:00 Nasal Coronavir OC43 PCR NOT DETECTED 02/13/22 18:00 Nasal Enterovir/Rhinovir PCR NOT DETECTED 02/13/22 18:00 Nasal Influenza B PCR NOT DETECTED 02/13/22 18:00 Nasal Influenza A PCR NOT DETECTED 02/13/22 18:00 Nasal Parainfluen 1 PCR NOT DETECTED 02/13/22 18:00 Nasal Parainfluen 2 PCR NOT DETECTED 02/13/22 18:00 Nasal Parainfluen 3 PCR NOT DETECTED 02/13/22 18:00 Nasal Parainfluen 4 PCR NOT DETECTED 02/13/22 18:00 Nasal RSV (PCR) NOT DETECTED 02/13/22 18:00 Nasal B.pertussis DNA PCR NOT DETECTED 02/13/22 18:00 Nasal C.pneumoniae (PCR) NOT DETECTED 02/13/22 18:00 [place] Human Metapneumo PCR NOT DETECTED 02/13/22 18:00 Nasal M.pneumoniae (PCR) NOT DETECTED 02/13/22 18:00 Nasal SARS-CoV-2 (PCR) NOT DETECTED 02/13/22 18:00 Last Dose Date Not Reportable 02/16/22 11:54 Last Dose Time Not Reportable 02/16/22 11:54 Vancomycin Trough 13.9 ug/mL (10.0-20.0) 02/16/22 11:54
[2022-02-20] MEDS ORDERED: INSULIN GLARGINE 300 UNIT/3 ML PEN SUBQ SCH ×2 (21:00)
[2022-02-21] MEDS: SODIUM CHLORIDE FLUSH 0.9% 10 ML SYRINGE IVP SCH ×3 (01:12→17:11)
[2022-02-21] MEDS: VANCOMYCIN INJ 2 GM in SODIUM CHLORIDE 0.9% 500 ML IV SCH ×2 (01:12→13:29)
[2022-02-21] MEDS: ACETAMINOPHEN 325 MG TABLET PO PRN ×3 (04:41→22:09)
[2022-02-21 06:05] LABS: BASOPHILS # (AUTO) 0.1 10^3/uL (0.0-0.1); BASOPHILS % (AUTO) 0.6 %; EOSINOPHILS # (AUTO) 0.3 10^3/uL (0.0-0.7); EOSINOPHILS % (AUTO) 3.4 %; HCT - HEMATOCRIT 43.6 % (42.0-52.0); HGB - HEMOGLOBIN 14.7 g/dL (14.0-18.0); LYMPHOCYTES # (AUTO) 1.6 10^3/uL (1.5-3.5); LYMPHOCYTES % (AUTO) 17.9 %; MEAN CORPUSCULAR HEMOGLOBIN 28.9 pg (27.0-31.0); MEAN CORPUSCULAR HGB CONC 33.7 g/dL (32.0-36.0); MEAN CORPUSCULAR VOLUME 85.7 fL (80.0-94.0); MEAN PLATELET VOLUME 9.7 fL (7.4-11.4); MONOCYTES # (AUTO) 0.8 10^3/uL (0.0-1.0); MONOCYTES % (AUTO) 8.3 %; NEUTROPHILS # (AUTO) 6.3 10^3/uL (1.5-6.6); PLT - PLATELET COUNT 293 10^3/uL (130-450); RED BLOOD COUNT 5.09 10^6/uL (4.70-6.10); RED CELL DISTRIBUTION WIDTH 12.8 % (12.0-15.0); WHITE BLOOD COUNT 9.1 x10^3/uL (4.8-10.8)
[2022-02-21 06:21] LABS: CALCIUM 8.7 mg/dL (8.5-10.3); CREATININE 0.7 mg/dL (0.6-1.2); CRP - C-REACTIVE PROTEIN 2.3 mg/dL (0-1.0); POTASSIUM 4.5 mmol/L (3.5-5.0)
[2022-02-21] MEDS: INSULIN ASPART 300 UNIT/3 ML PEN SUBQ SCH ×7 (07:52→21:24)
[2022-02-21] MEDS ORDERED: LIDOCAINE 1% 50 ML MDV ONE (08:32)
[2022-02-21] MEDS: SACCHAROMYCES BOULARDII 250 MG CAPSULE PO SCH ×2 (08:52→17:11)
[2022-02-21] MEDS: CHOLECALCIFEROL 25 MCG TABLET PO SCH (08:52)
[2022-02-21] MEDS: LACTOBACILLUS RHAMNOSUS GG CAPSULE PO SCH (08:52)
[2022-02-21] MEDS: ENOXAPARIN 40 MG/0.4 ML SYRINGE SUBQ SCH (08:53)
[2022-02-21] MEDS: polyethylene glycoL 3350 17 GM PACKET PO SCH (08:55)
--- NOTE | 2022-02-21 09:37 | OPERATIVE REPORT ---
Operative Report - General Admit Date: 02/16/22 Procedure Date: 02/21/22 Planned Procedure: I and D left foot abscess Pre-Op Diagnosis: left foot abscess, dorsum Procedure Performed: I and D left foot abscess Post Op Diagnosis: left foot abscess - Procedure Note Primary Surgeon: karo tovar Anesthesia Technique: Local Pathology: none Estimated Blood Loss (mL): 1 Drain/Tube Type: Other (none) Indications: left foot abscess Complications: none - Other Other Information/Narrative: after parq and verbal consent the dorsum left foot abscess is completely bennie ined. clean technique and local anesthesia. 2 cm sharp incision made and perhaps 10 ml purulent fluid removed. well tolerated. dressing applied
[2022-02-21] MEDS: CEFEPIME 2 GM in SODIUM CHLORIDE 0.9% MINIBAG 100 ML IV SCH ×2 (09:58→21:24)
[2022-02-21] MEDS: INSULIN GLARGINE 300 UNIT/3 ML PEN SUBQ SCH (09:58)
--- NOTE | 2022-02-21 11:36 | PROVIDER PROGRESS NOTE ---
Assessment/Plan - Problem List (1) Cellulitis of left foot Assessment/Plan: 02/21 Surgeon Did I&D on patient on today, it come out 10 cc purulent fluids per surgeon notes. Patient tolerated. We will continue intravenous IV antibiotics, we will follow surgeon recommendation for dressing change, and wound care. continue pain control (2) Diabetes mellitus type 2 with complications, uncontrolled 02/21 Morning patient's glucose is still 250. We will add 10 units Lantus in the night, continue 5 units Lantus in the morning, continue slide scale and scheduled Novolog, continue ACH S glucose check. continue hypoglycemia protocol (3) Morbid obesity Conclusion/Plan: Weight at admission 118kg and BMI of 40.7. Pt had nutritional consult. (4) Hyponatremia Conclusion/Plan: Na 131. - Current Meds Current Meds: Current Medications Generic Name Dose Route Start Last Admin Trade Name Freq PRN Reason Stop Dose Admin Acetaminophen 650 mg 02/13/22 17:36 02/21/22 04:41 Acetaminophen 325 Mg Tablet PO 650 mg Q4HR PRN Administration Pain 1 to 4 Cholecalciferol 50 mcg 02/14/22 17:00 02/21/22 08:52 Cholecalciferol 25 Mcg Tablet PO 50 mcg DAILY YUNIOR Administration Enoxaparin Sodium 40 mg 02/14/22 09:00 02/21/22 08:53 Enoxaparin 40 Mg/0.4 Ml Syringe SUBQ 40 mg DAILY YUNIOR Administration Vancomycin HCl 2 gm/ Sodium 500 mls @ 250 mls/hr 02/14/22 13:00 02/21/22 03:25 Chloride IV Infused Q12H YUNIOR Infusion Cefepime HCl 2 gm/ Sodium 100 mls @ 200 mls/hr 02/16/22 09:00 02/21/22 10:30 Chloride IV Infused BID YUNIOR Infusion Insulin Aspart 3 - 11 unit 02/14/22 21:00 02/21/22 07:54 Insulin Aspart 300 Unit/3 Ml Pen SUBQ 7 unit 0800,1200,1700,2100 YUNIOR Administration Protocol Insulin Aspart 7 unit 02/16/22 12:00 02/21/22 07:52 Insulin Aspart 300 Unit/3 Ml Pen SUBQ 7 unit TIDWM YUNIOR Administration Protocol Insulin Glargine 5 unit 02/21/22 09:00 02/21/22 09:58 Insulin Glargine 300 Unit/3 Ml Pen SUBQ 5 unit QDBREAKFAST YUNIOR Administration Lactobacillus Rhamnosus 1 cap 02/14/22 17:00 02/21/22 08:52 Lactobacillus Rhamnosus Gg Capsule PO 1 cap DAILY YUNIOR Administration Polyethylene Glycol 17 gm 02/20/22 09:00 02/21/22 08:55 Polyethylene Glycol 3350 17 Gm Packet PO Not Given DAILY YUNIOR Saccharomyces Boulardii 250 mg 02/20/22 08:00 02/21/22 08:52 Saccharomyces Boulardii 250 Mg Capsule PO 250 mg BIDWM YUNIOR Administration Sodium Chloride 10 ml 02/13/22 17:36 02/20/22 13:25 Sodium Chloride Flush 0.9% 10 Ml Syringe IVP 10 ml PRN PRN Administration NEEDED PER PROVIDER ORDERS Sodium Chloride 10 ml 02/14/22 01:00 02/21/22 09:59 Sodium Chloride Flush 0.9% 10 Ml Syringe IVP 10 ml 0100,0900,1700 YUNIOR Administration - Lab Result Fish Bone Diagrams: 02/21/22 05:59 02/21/22 05:59 - Additional Planning My Orders: My Active Orders 02/21/22 09:00 Insulin Glargine [Lantus Solostar] 5 unit SUBQ QDBREAKFAST 02/21/22 Lunch Carb-controlled Diet [DIET] 02/21/22 21:00 Insulin Glargine [Lantus Solostar] 10 unit SUBQ QPM 02/22/22 05:00 CRP - C-REACTIVE PROTEIN [CHEM] DAILYLAB Subjective - Subjective Patient Reports: Feeling Better, Resting Comfortably Objective Vital Signs: Vital Signs - 24 hr 02/20/22 02/21/22 02/21/22 15:55 00:58 07:45 Temperature 36.6 C 36.8 C 36.7 C Heart Rate [ 81 83 80 Brachial] Respiratory 16 17 18 Rate Blood Pressure 141/81 H 129/76 143/84 H [Right Brachial artery] O2 Saturation 98 96 Oxygen O2 Source Nasal cannula I&O (Last 24 Hrs): Intake and Output Totals x24h 02/19/22 02/20/22 02/21/22 23:59 23:59 23:59 Intake Total 2089 2640 840 Balance 2089 2640 840 General: Alert, Oriented x3, Cooperative, No acute distress HEENT: Atraumatic Neck: Supple Lymphatic: no adenopathy Neuro: Alert, Non Focal, Oriented Times 3 Cardiovascular: Regular rate, Normal S1, Normal S2 Respiratory: Chest non-tender, No respiratory distress Abdomen: Normal bowel sounds, Soft Extremities: Normal pulses, Other (pt had I&D on today morning. pt had dressing on his wound now which was done by surgoen. we will change dressing on tomorrow.) - Results Results: Laboratory Results WBC 9.1 x10^3/uL (4.8-10.8) 02/21/22 05:59 RBC 5.09 10^6/uL (4.70-6.10) 02/21/22 05:59 Hgb 14.7 g/dL (14.0-18.0) 02/21/22 05:59 Hct 43.6 % (42.0-52.0) 02/21/22 05:59 MCV 85.7 fL (80.0-94.0) 02/21/22 05:59 MCH 28.9 pg (27.0-31.0) 02/21/22 05:59 MCHC 33.7 g/dL (32.0-36.0) 02/21/22 05:59 RDW 12.8 % (12.0-15.0) 02/21/22 05:59 Plt Count 293 10^3/uL (130-450) 02/21/22 05:59 MPV 9.7 fL (7.4-11.4) 02/21/22 05:59 Neut # (Auto) 6.3 10^3/uL (1.5-6.6) 02/21/22 05:59 Lymph # (Auto) 1.6 10^3/uL (1.5-3.5) 02/21/22 05:59 [place] # (Auto) 0.8 10^3/uL (0.0-1.0) 02/21/22 05:59 Eos # (Auto) 0.3 10^3/uL (0.0-0.7) 02/21/22 05:59 Baso # (Auto) 0.1 10^3/uL (0.0-0.1) 02/21/22 05:59 Absolute Nucleated RBC 0.00 x10^3/uL 02/21/22 05:59 Nucleated RBC % 0.0 /100WBC 02/21/22 05:59 Sodium 131 mmol/L (135-145) L 02/21/22 05:59 Potassium 4.5 mmol/L (3.5-5.0) 02/21/22 05:59 Chloride 98 mmol/L (101-111) L 02/21/22 05:59 Carbon Dioxide 22 mmol/L (21-32) 02/21/22 05:59 Anion Gap 11.0 (6-13) 02/21/22 05:59 BUN 14 mg/dL (6-20) 02/21/22 05:59 Creatinine 0.7 mg/dL (0.6-1.2) 02/21/22 05:59 Estimated GFR (MDRD) 121 (>89) 02/21/22 05:59 Glucose 246 mg/dL (70-100) H 02/21/22 05:59 POC Whole Bld Glucose 197 mg/dL (70 - 100) H 02/21/22 11:19 Estimat Average Glucose 326 mg/dL (70-100) H 02/13/22 16:47 Hemoglobin A1c % 13.0 % (4.27-6.07) H 02/13/22 16:47 Calcium 8.7 mg/dL (8.5-10.3) 02/21/22 05:59 Total Bilirubin 0.4 mg/dL (0.2-1.0) 02/13/22 16:47 AST 14 IU/L (10-42) 02/13/22 16:47 ALT 23 IU/L (10-60) 02/13/22 16:47 Alkaline Phosphatase 68 IU/L (42-121) 02/13/22 16:47 C-Reactive Protein 2.3 mg/dL (0-1.0) H 02/21/22 05:59 Total Protein 6.8 g/dL (6.7-8.2) 02/13/22 16:47 Albumin 3.1 g/dL (3.2-5.5) L 02/13/22 16:47 Globulin 3.7 g/dL (2.1-4.2) 02/13/22 16:47 Albumin/Globulin Ratio 0.8 (1.0-2.2) L 02/13/22 16:47 Lipase 26 U/L (22-51) 02/13/22 16:47 Nasal Adenovirus (PCR) NOT DETECTED 02/13/22 18:00 Nasal B. parapertussis DNA (PCR) NOT DETECTED 02/13/22 18:00 Nasal Coronavir 229E PCR NOT DETECTED 02/13/22 18:00 Nasal Coronavir HKU1 PCR NOT DETECTED 02/13/22 18:00 Nasal Coronavir NL63 PCR NOT DETECTED 02/13/22 18:00 Nasal Coronavir OC43 PCR NOT DETECTED 02/13/22 18:00 Nasal Enterovir/Rhinovir PCR NOT DETECTED 02/13/22 18:00 Nasal Influenza B PCR NOT DETECTED 02/13/22 18:00 Nasal Influenza A PCR NOT DETECTED 02/13/22 18:00 Nasal Parainfluen 1 PCR NOT DETECTED 02/13/22 18:00 Nasal Parainfluen 2 PCR NOT DETECTED 02/13/22 18:00 Nasal Parainfluen 3 PCR NOT DETECTED 02/13/22 18:00 Nasal Parainfluen 4 PCR NOT DETECTED 02/13/22 18:00 Nasal RSV (PCR) NOT DETECTED 02/13/22 18:00 Nasal B.pertussis DNA PCR NOT DETECTED 02/13/22 18:00 Nasal C.pneumoniae (PCR) NOT DETECTED 02/13/22 18:00 [place] Human Metapneumo PCR NOT DETECTED 02/13/22 18:00 Nasal M.pneumoniae (PCR) NOT DETECTED 02/13/22 18:00 Nasal SARS-CoV-2 (PCR) NOT DETECTED 02/13/22 18:00 Last Dose Date Not Reportable 02/16/22 11:54 Last Dose Time Not Reportable 02/16/22 11:54 Vancomycin Trough 13.9 ug/mL (10.0-20.0) 02/16/22 11:54 ABX Reporting Has patient been on IV antibiotics over the past 48 hours?: Yes Current Medications - Current Medications Current Medications: Active Medications Acetaminophen (Acetaminophen 325 Mg Tablet) 650 mg PO Q4HR PRN PRN Reason: Pain 1 to 4 Last Admin: 02/21/22 04:41 Dose: 650 mg Cholecalciferol (Cholecalciferol 25 Mcg Tablet) 50 mcg PO DAILY [facility] Last Admin: 02/21/22 08:52 Dose: 50 mcg Enoxaparin Sodium (Enoxaparin 40 Mg/0.4 Ml Syringe) 40 mg SUBQ DAILY [facility] Last Admin: 02/21/22 08:53 Dose: 40 mg Vancomycin HCl 2 gm/ Sodium (Chloride) 500 mls @ 250 mls/hr IV Q12H [facility] Last Infusion: 02/21/22 03:25 Dose: Infused Cefepime HCl 2 gm/ Sodium (Chloride) 100 mls @ 200 mls/hr IV BID [facility] Last Infusion: 02/21/22 10:30 Dose: Infused Insulin Aspart (Insulin Aspart 300 Unit/3 Ml Pen) 3 - 11 unit SUBQ 0800,1200,1700,2100 [facility]; Protocol Last Admin: 02/21/22 07:54 Dose: 7 unit Insulin Aspart (Insulin Aspart 300 Unit/3 Ml Pen) 7 unit SUBQ TIDWM [facility]; Protocol Last Admin: 02/21/22 07:52 Dose: 7 unit Insulin Glargine (Insulin Glargine 300 Unit/3 Ml Pen) 10 unit SUBQ QPM YUNIOR Insulin Glargine (Insulin Glargine 300 Unit/3 Ml Pen) 5 unit SUBQ QDBREAKFAST [facility] Last Admin: 02/21/22 09:58 Dose: 5 unit Lactobacillus Rhamnosus (Lactobacillus Rhamnosus Gg Capsule) 1 cap PO DAILY [facility] Last Admin: 02/21/22 08:52 Dose: 1 cap Ondansetron HCl (Ondansetron Odt 4 Mg Tablet) 4 mg TL Q6HR PRN PRN Reason: Nausea / Vomiting Ondansetron HCl (Ondansetron 4 Mg/2 Ml Vial) 4 mg IVP Q6HR PRN PRN Reason: Nausea / Vomiting Oxycodone HCl (Oxycodone 5 Mg Tablet) 5 mg PO Q4HR PRN PRN Reason: PAIN Polyethylene Glycol (Polyethylene Glycol 3350 17 Gm Packet) 17 gm PO DAILY [facility] Last Admin: 02/21/22 08:55 Dose: Not Given Saccharomyces Boulardii (Saccharomyces Boulardii 250 Mg Capsule) 250 mg PO BIDWM [facility] Last Admin: 02/21/22 08:52 Dose: 250 mg Sodium Chloride (Sodium Chloride Flush 0.9% 10 Ml Syringe) 10 ml IVP PRN PRN PRN Reason: NEEDED PER PROVIDER ORDERS Last Admin: 02/20/22 13:25 Dose: 10 ml Sodium Chloride (Sodium Chloride Flush 0.9% 10 Ml Syringe) 10 ml IVP 0100,0900,1700 [facility] Last Admin: 02/21/22 09:59 Dose: 10 ml Glipizide [Glipizide ER] 5 mg PO DAILY 02/13/22
[2022-02-21] MEDS: SODIUM CHLORIDE FLUSH 0.9% 10 ML SYRINGE IVP PRN (13:29)
[2022-02-21] MEDS ORDERED: INSULIN GLARGINE 300 UNIT/3 ML PEN SUBQ SCH (21:00)
[2022-02-22] MEDS: VANCOMYCIN INJ 2 GM in SODIUM CHLORIDE 0.9% 500 ML IV SCH ×2 (01:06→13:30)
[2022-02-22] MEDS: SODIUM CHLORIDE FLUSH 0.9% 10 ML SYRINGE IVP SCH ×3 (01:07→15:48)
[2022-02-22 05:10] LABS: BASOPHILS # (AUTO) 0.1 10^3/uL (0.0-0.1); BASOPHILS % (AUTO) 0.9 %; EOSINOPHILS # (AUTO) 0.3 10^3/uL (0.0-0.7); EOSINOPHILS % (AUTO) 3.4 %; HCT - HEMATOCRIT 45.2 % (42.0-52.0); HGB - HEMOGLOBIN 14.9 g/dL (14.0-18.0); LYMPHOCYTES % (AUTO) 25.6 %; MEAN CORPUSCULAR HEMOGLOBIN 28.5 pg (27.0-31.0); MEAN CORPUSCULAR VOLUME 86.4 fL (80.0-94.0); MONOCYTES # (AUTO) 0.7 10^3/uL (0.0-1.0); MONOCYTES % (AUTO) 8.8 %; NEUTROPHILS # (AUTO) 4.7 10^3/uL (1.5-6.6); NEUTROPHILS % (AUTO) 60.4 %; PLT - PLATELET COUNT 327 10^3/uL (130-450); RED BLOOD COUNT 5.23 10^6/uL (4.70-6.10); WHITE BLOOD COUNT 7.7 x10^3/uL (4.8-10.8)
[2022-02-22 05:29] LABS: CALCIUM 8.9 mg/dL (8.5-10.3); CREATININE 0.7 mg/dL (0.6-1.2); CRP - C-REACTIVE PROTEIN 1.5 mg/dL (0-1.0); POTASSIUM 3.9 mmol/L (3.5-5.0)
[2022-02-22] MEDS: INSULIN ASPART 300 UNIT/3 ML PEN SUBQ SCH ×7 (08:13→21:32)
[2022-02-22] MEDS: INSULIN GLARGINE 300 UNIT/3 ML PEN SUBQ SCH (08:14)
--- NOTE | 2022-02-22 08:30 | PROVIDER PROGRESS NOTE ---
Subjective - Prog Note Date Prog Note Date: 02/22/22 - Subjective Pt reports feeling: Improved Objective - Vital Signs/Intake & Output Vital Signs: Vital Signs x48h Temp Pulse Resp BP Pulse Ox 02/22/22 07:56 36.6 C 73 16 143/81 H 95 Intake & Output: Intake & Output 02/19/22 02/20/22 02/21/22 02/22/22 23:59 23:59 23:59 23:59 Intake Total 2089 2640 2520 1075 Output Total 10 Balance 2089 2640 2510 1075 - Objective General Appearance: positive: No acute distress, Alert Eyes Bilateral: positive: PERRL, EOMI, No scleral icterus Respiratory: positive: No respiratory distress Abdomen: positive: No distention Extremities: positive: Other (left foot 3 cm I and D incision. scant purulent drainage this am.) - Lab Results Fish Bones: 02/22/22 04:33 02/22/22 04:33 Other Labs: Lab Results x24hrs 02/22/22 02/22/22 02/22/22 Range/Units 07:50 04:33 04:33 WBC 7.7 (4.8-10.8) x10^3/uL RBC 5.23 (4.70-6.10) 10^6/uL Hgb 14.9 (14.0-18.0) g/dL Hct 45.2 (42.0-52.0) % MCV 86.4 (80.0-94.0) fL MCH 28.5 (27.0-31.0) pg MCHC 33.0 (32.0-36.0) g/dL RDW 13.0 (12.0-15.0) % Plt Count 327 (130-450) 10^3/uL MPV 10.0 (7.4-11.4) fL Neut # (Auto) 4.7 (1.5-6.6) 10^3/uL Lymph # (Auto) 2.0 (1.5-3.5) 10^3/uL [place] # (Auto) 0.7 (0.0-1.0) 10^3/uL Eos # (Auto) 0.3 (0.0-0.7) 10^3/uL Baso # (Auto) 0.1 (0.0-0.1) 10^3/uL Absolute Nucleated RBC 0.00 x10^3/uL Nucleated RBC % 0.0 /100WBC Sodium 134 L (135-145) mmol/L Potassium 3.9 (3.5-5.0) mmol/L Chloride 99 L (101-111) mmol/L Carbon Dioxide 24 (21-32) mmol/L Anion Gap 11.0 (6-13) BUN 13 (6-20) mg/dL Creatinine 0.7 (0.6-1.2) mg/dL Estimated GFR (MDRD) 121 (>89) Glucose 169 H (70-100) mg/dL POC Whole Bld Glucose 181 H (70 - 100) mg/dL Calcium 8.9 (8.5-10.3) mg/dL C-Reactive Protein 1.5 H (0-1.0) mg/dL 02/21/22 02/21/22 02/21/22 Range/Units 20:44 16:39 11:19 WBC (4.8-10.8) x10^3/uL RBC (4.70-6.10) 10^6/uL Hgb (14.0-18.0) g/dL Hct (42.0-52.0) % MCV (80.0-94.0) fL MCH (27.0-31.0) pg MCHC (32.0-36.0) g/dL RDW (12.0-15.0) % Plt Count (130-450) 10^3/uL MPV (7.4-11.4) fL Neut # (Auto) (1.5-6.6) 10^3/uL Lymph # (Auto) (1.5-3.5) 10^3/uL [place] # (Auto) (0.0-1.0) 10^3/uL Eos # (Auto) (0.0-0.7) 10^3/uL Baso # (Auto) (0.0-0.1) 10^3/uL Absolute Nucleated RBC x10^3/uL Nucleated RBC % /100WBC Sodium (135-145) mmol/L Potassium (3.5-5.0) mmol/L Chloride (101-111) mmol/L Carbon Dioxide (21-32) mmol/L Anion Gap (6-13) BUN (6-20) mg/dL Creatinine (0.6-1.2) mg/dL Estimated GFR (MDRD) (>89) Glucose (70-100) mg/dL POC Whole Bld Glucose 239 H 150 H 197 H (70 - 100) mg/dL Calcium (8.5-10.3) mg/dL C-Reactive Protein (0-1.0) mg/dL Assessment/Plan - Problem List (1) Cellulitis Impression: improving left foot infection I and D yesterday recommend dry dressing change daily and as needed. ok to get area wet. orders written. after d/c he should follow up in the surgery office weekly until healed [phone] Qualifiers: Site of cellulitis: extremity Site of cellulitis of extremity: lower extremity Laterality: left Qualified Code(s): L03.116 - Cellulitis of left lower limb
[2022-02-22] MEDS: LACTOBACILLUS RHAMNOSUS GG CAPSULE PO SCH (09:13)
[2022-02-22] MEDS: ENOXAPARIN 40 MG/0.4 ML SYRINGE SUBQ SCH (09:13)
[2022-02-22] MEDS: SACCHAROMYCES BOULARDII 250 MG CAPSULE PO SCH ×2 (09:14→16:51)
[2022-02-22] MEDS: CHOLECALCIFEROL 25 MCG TABLET PO SCH (09:14)
[2022-02-22] MEDS: polyethylene glycoL 3350 17 GM PACKET PO SCH (09:14)
[2022-02-22] MEDS: CEFEPIME 2 GM in SODIUM CHLORIDE 0.9% MINIBAG 100 ML IV SCH ×2 (09:15→21:32)
--- NOTE | 2022-02-22 10:58 | PROVIDER PROGRESS NOTE ---
Assessment/Plan - Problem List (1) Cellulitis of left foot Assessment/Plan: 02/22 slight improved, swelling is reduced, CRP is reduced. surgeon is followup with pt as well. continue IV antibiotics, lab monitor, dressing change per surgeon's recommendation. continue pain control. 02/21 Surgeon Did I&D on patient on today, it come out 10 cc purulent fluids per surgeon notes. Patient tolerated. We will continue intravenous IV antibiotics, we will follow surgeon recommendation for dressing change, and wound care. continue pain control (2) Diabetes mellitus type 2 with complications, uncontrolled 02/22, morning glucose is 170, strictly control of his glucose level, increase la ntus to 15 units, keep slide scale, continue ACHS glucose check, continue hypoglycemia protocol 02/21 Morning patient's glucose is still 250. We will add 10 units Lantus in the night, continue 5 units Lantus in the morning, continue slide scale and scheduled Novolog, continue ACH S glucose check. continue hypoglycemia protocol (3) Morbid obesity Conclusion/Plan: Weight at admission 118kg and BMI of 40.7. Pt had nutritional consult. (4) Hyponatremia Conclusion/Plan: Na 134. - Current Meds Current Meds: Current Medications Generic Name Dose Route Start Last Admin Trade Name Freq PRN Reason Stop Dose Admin Acetaminophen 650 mg 02/13/22 17:36 02/21/22 22:09 Acetaminophen 325 Mg Tablet PO 650 mg Q4HR PRN Administration Pain 1 to 4 Cholecalciferol 50 mcg 02/14/22 17:00 02/22/22 09:14 Cholecalciferol 25 Mcg Tablet PO 50 mcg DAILY YUNIOR Administration Enoxaparin Sodium 40 mg 02/14/22 09:00 02/22/22 09:13 Enoxaparin 40 Mg/0.4 Ml Syringe SUBQ 40 mg DAILY YUNIOR Administration Vancomycin HCl 2 gm/ Sodium 500 mls @ 250 mls/hr 02/14/22 13:00 02/22/22 03:13 Chloride IV Infused Q12H YUNIOR Infusion Cefepime HCl 2 gm/ Sodium 100 mls @ 200 mls/hr 02/16/22 09:00 02/22/22 09:50 Chloride IV Infused BID YUNIOR Infusion Insulin Aspart 3 - 11 unit 02/14/22 21:00 02/22/22 08:13 Insulin Aspart 300 Unit/3 Ml Pen SUBQ 5 unit 0800,1200,1700,2100 YUNIOR Administration Protocol Insulin Aspart 7 unit 02/16/22 12:00 02/22/22 08:13 Insulin Aspart 300 Unit/3 Ml Pen SUBQ 7 unit TIDWM YUNIOR Administration Protocol Insulin Glargine 10 unit 02/21/22 21:00 02/21/22 21:25 Insulin Glargine 300 Unit/3 Ml Pen SUBQ 10 unit QPM YUNIOR Administration Insulin Glargine 5 unit 02/21/22 09:00 02/22/22 08:14 Insulin Glargine 300 Unit/3 Ml Pen SUBQ 5 unit QDBREAKFAST YUNIOR Administration Lactobacillus Rhamnosus 1 cap 02/14/22 17:00 02/22/22 09:13 Lactobacillus Rhamnosus Gg Capsule PO 1 cap DAILY YUNIOR Administration Polyethylene Glycol 17 gm 02/20/22 09:00 02/22/22 09:14 Polyethylene Glycol 3350 17 Gm Packet PO 17 gm DAILY YUNIOR Administration Saccharomyces Boulardii 250 mg 02/20/22 08:00 02/22/22 09:14 Saccharomyces Boulardii 250 Mg Capsule PO 250 mg BIDWM YUNIOR Administration Sodium Chloride 10 ml 02/13/22 17:36 02/21/22 13:29 Sodium Chloride Flush 0.9% 10 Ml Syringe IVP 10 ml PRN PRN Administration NEEDED PER PROVIDER ORDERS Sodium Chloride 10 ml 02/14/22 01:00 02/22/22 09:13 Sodium Chloride Flush 0.9% 10 Ml Syringe IVP 10 ml 0100,0900,1700 YUNIOR Administration - Lab Result Fish Bone Diagrams: 02/22/22 04:33 02/22/22 04:33 - Additional Planning My Orders: My Active Orders 02/21/22 Lunch Carb-controlled Diet [DIET] 02/21/22 21:00 Insulin Glargine [Lantus Solostar] 10 unit SUBQ QPM 02/22/22 12:00 VANCOMYCIN TROUGH [CHEM] Timed 02/23/22 05:00 BMP - BASIC METABOLIC PANEL [CHEM] DAILYLAB CBC - COMP BLD CT W/AUTO DIFF [HEME] DAILYLAB 02/24/22 05:00 BMP - BASIC METABOLIC PANEL [CHEM] DAILYLAB CBC - COMP BLD CT W/AUTO DIFF [HEME] DAILYLAB 02/25/22 05:00 BMP - BASIC METABOLIC PANEL [CHEM] DAILYLAB CBC - COMP BLD CT W/AUTO DIFF [HEME] DAILYLAB 02/26/22 05:00 BMP - BASIC METABOLIC PANEL [CHEM] DAILYLAB CBC - COMP BLD CT W/AUTO DIFF [HEME] DAILYLAB 02/27/22 05:00 BMP - BASIC METABOLIC PANEL [CHEM] DAILYLAB CBC - COMP BLD CT W/AUTO DIFF [HEME] DAILYLAB 02/28/22 05:00 BMP - BASIC METABOLIC PANEL [CHEM] DAILYLAB CBC - COMP BLD CT W/AUTO DIFF [HEME] DAILYLAB Subjective - Subjective Patient Reports: Feeling Better, Resting Comfortably Objective Vital Signs: Vital Signs - 24 hr 02/21/22 02/21/22 02/22/22 15:35 23:39 07:56 Temperature 36.6 C 36.7 C 36.6 C Heart Rate [ 82 96 73 Brachial] Respiratory 18 17 16 Rate Blood Pressure 129/68 149/83 H 143/81 H [Right Brachial artery] O2 Saturation 95 97 95 Oxygen O2 Source Room air I&O (Last 24 Hrs): Intake and Output Totals x24h 02/20/22 02/21/22 02/22/22 23:59 23:59 23:59 Intake Total 2640 2520 1415 Output Total 10 Balance 2640 2510 1415 General: Alert, Oriented x3, Cooperative, No acute distress HEENT: Atraumatic Neck: Supple Lymphatic: no adenopathy Neuro: Alert, Non Focal, Oriented Times 3 Cardiovascular: Regular rate, Normal S1, Normal S2 Respiratory: Chest non-tender, No respiratory distress Abdomen: Normal bowel sounds, Soft Extremities: Normal pulses, Other (dorsum of left foot show drainage at surgery site, erythema with mild to moderate swelling.) - Results Results: Laboratory Results WBC 7.7 x10^3/uL (4.8-10.8) 02/22/22 04:33 RBC 5.23 10^6/uL (4.70-6.10) 02/22/22 04:33 Hgb 14.9 g/dL (14.0-18.0) 02/22/22 04:33 Hct 45.2 % (42.0-52.0) 02/22/22 04:33 MCV 86.4 fL (80.0-94.0) 02/22/22 04:33 MCH 28.5 pg (27.0-31.0) 02/22/22 04:33 MCHC 33.0 g/dL (32.0-36.0) 02/22/22 04:33 RDW 13.0 % (12.0-15.0) 02/22/22 04:33 Plt Count 327 10^3/uL (130-450) 02/22/22 04:33 MPV 10.0 fL (7.4-11.4) 02/22/22 04:33 Neut # (Auto) 4.7 10^3/uL (1.5-6.6) 02/22/22 04:33 Lymph # (Auto) 2.0 10^3/uL (1.5-3.5) 02/22/22 04:33 Sharkey # (Auto) 0.7 10^3/uL (0.0-1.0) 02/22/22 04:33 Eos # (Auto) 0.3 10^3/uL (0.0-0.7) 02/22/22 04:33 Baso # (Auto) 0.1 10^3/uL (0.0-0.1) 02/22/22 04:33 Absolute Nucleated RBC 0.00 x10^3/uL 02/22/22 04:33 Nucleated RBC % 0.0 /100WBC 02/22/22 04:33 Sodium 134 mmol/L (135-145) L 02/22/22 04:33 Potassium 3.9 mmol/L (3.5-5.0) 02/22/22 04:33 Chloride 99 mmol/L (101-111) L 02/22/22 04:33 Carbon Dioxide 24 mmol/L (21-32) 02/22/22 04:33 Anion Gap 11.0 (6-13) 02/22/22 04:33 BUN 13 mg/dL (6-20) 02/22/22 04:33 Creatinine 0.7 mg/dL (0.6-1.2) 02/22/22 04:33 Estimated GFR (MDRD) 121 (>89) 02/22/22 04:33 Glucose 169 mg/dL (70-100) H 02/22/22 04:33 POC Whole Bld Glucose 181 mg/dL (70 - 100) H 02/22/22 07:50 Estimat Average Glucose 326 mg/dL (70-100) H 02/13/22 16:47 Hemoglobin A1c % 13.0 % (4.27-6.07) H 02/13/22 16:47 Calcium 8.9 mg/dL (8.5-10.3) 02/22/22 04:33 Total Bilirubin 0.4 mg/dL (0.2-1.0) 02/13/22 16:47 AST 14 IU/L (10-42) 02/13/22 16:47 ALT 23 IU/L (10-60) 02/13/22 16:47 Alkaline Phosphatase 68 IU/L (42-121) 02/13/22 16:47 C-Reactive Protein 1.5 mg/dL (0-1.0) H 02/22/22 04:33 Total Protein 6.8 g/dL (6.7-8.2) 02/13/22 16:47 Albumin 3.1 g/dL (3.2-5.5) L 02/13/22 16:47 Globulin 3.7 g/dL (2.1-4.2) 02/13/22 16:47 Albumin/Globulin Ratio 0.8 (1.0-2.2) L 02/13/22 16:47 Lipase 26 U/L (22-51) 02/13/22 16:47 Nasal Adenovirus (PCR) NOT DETECTED 02/13/22 18:00 Nasal B. parapertussis DNA (PCR) NOT DETECTED 02/13/22 18:00 Nasal Coronavir 229E PCR NOT DETECTED 02/13/22 18:00 Nasal Coronavir HKU1 PCR NOT DETECTED 02/13/22 18:00 Nasal Coronavir NL63 PCR NOT DETECTED 02/13/22 18:00 Nasal Coronavir OC43 PCR NOT DETECTED 02/13/22 18:00 Nasal Enterovir/Rhinovir PCR NOT DETECTED 02/13/22 18:00 Nasal Influenza B PCR NOT DETECTED 02/13/22 18:00 Nasal Influenza A PCR NOT DETECTED 02/13/22 18:00 Nasal Parainfluen 1 PCR NOT DETECTED 02/13/22 18:00 Nasal Parainfluen 2 PCR NOT DETECTED 02/13/22 18:00 Nasal Parainfluen 3 PCR NOT DETECTED 02/13/22 18:00 Nasal Parainfluen 4 PCR NOT DETECTED 02/13/22 18:00 Nasal RSV (PCR) NOT DETECTED 02/13/22 18:00 Nasal B.pertussis DNA PCR NOT DETECTED 02/13/22 18:00 Nasal C.pneumoniae (PCR) NOT DETECTED 02/13/22 18:00 Jean Paul Human Metapneumo PCR NOT DETECTED 02/13/22 18:00 Nasal M.pneumoniae (PCR) NOT DETECTED 02/13/22 18:00 Nasal SARS-CoV-2 (PCR) NOT DETECTED 02/13/22 18:00 Last Dose Date Not Reportable 02/16/22 11:54 Last Dose Time Not Reportable 02/16/22 11:54 Vancomycin Trough 13.9 ug/mL (10.0-20.0) 02/16/22 11:54 ABX Reporting Has patient been on IV antibiotics over the past 48 hours?: Yes Current Medications - Current Medications Current Medications: Active Medications Acetaminophen (Acetaminophen 325 Mg Tablet) 650 mg PO Q4HR PRN PRN Reason: Pain 1 to 4 Last Admin: 02/21/22 22:09 Dose: 650 mg Cholecalciferol (Cholecalciferol 25 Mcg Tablet) 50 mcg PO DAILY [facility] Last Admin: 02/22/22 09:14 Dose: 50 mcg Enoxaparin Sodium (Enoxaparin 40 Mg/0.4 Ml Syringe) 40 mg SUBQ DAILY [facility] Last Admin: 02/22/22 09:13 Dose: 40 mg Vancomycin HCl 2 gm/ Sodium (Chloride) 500 mls @ 250 mls/hr IV Q12H [facility] Last Infusion: 02/22/22 03:13 Dose: Infused Cefepime HCl 2 gm/ Sodium (Chloride) 100 mls @ 200 mls/hr IV BID [facility] Last Infusion: 02/22/22 09:50 Dose: Infused Insulin Aspart (Insulin Aspart 300 Unit/3 Ml Pen) 3 - 11 unit SUBQ 0800,1200,1700,2100 [facility]; Protocol Last Admin: 02/22/22 08:13 Dose: 5 unit Insulin Aspart (Insulin Aspart 300 Unit/3 Ml Pen) 7 unit SUBQ TIDWM [facility]; Protocol Last Admin: 02/22/22 08:13 Dose: 7 unit Insulin Glargine (Insulin Glargine 300 Unit/3 Ml Pen) 5 unit SUBQ QDBREAKFAST [facility] Last Admin: 02/22/22 08:14 Dose: 5 unit Insulin Glargine (Insulin Glargine 300 Unit/3 Ml Pen) 15 unit SUBQ QPM [facility] Lactobacillus Rhamnosus (Lactobacillus Rhamnosus Gg Capsule) 1 cap PO DAILY [facility] Last Admin: 02/22/22 09:13 Dose: 1 cap Ondansetron HCl (Ondansetron Odt 4 Mg Tablet) 4 mg TL Q6HR PRN PRN Reason: Nausea / Vomiting Ondansetron HCl (Ondansetron 4 Mg/2 Ml Vial) 4 mg IVP Q6HR PRN PRN Reason: Nausea / Vomiting Oxycodone HCl (Oxycodone 5 Mg Tablet) 5 mg PO Q4HR PRN PRN Reason: PAIN Polyethylene Glycol (Polyethylene Glycol 3350 17 Gm Packet) 17 gm PO DAILY [facility] Last Admin: 02/22/22 09:14 Dose: 17 gm Saccharomyces Boulardii (Saccharomyces Boulardii 250 Mg Capsule) 250 mg PO BIDWM [facility] Last Admin: 02/22/22 09:14 Dose: 250 mg Sodium Chloride (Sodium Chloride Flush 0.9% 10 Ml Syringe) 10 ml IVP PRN PRN PRN Reason: NEEDED PER PROVIDER ORDERS Last Admin: 02/21/22 13:29 Dose: 10 ml Sodium Chloride (Sodium Chloride Flush 0.9% 10 Ml Syringe) 10 ml IVP 0100,0900,1700 [facility] Last Admin: 02/22/22 09:13 Dose: 10 ml Glipizide [Glipizide ER] 5 mg PO DAILY 02/13/22
[2022-02-22 12:21] LABS: VANCOMYCIN,TROUGH 15.6 ug/mL (10.0-20.0)
[2022-02-22] MEDS: ACETAMINOPHEN 325 MG TABLET PO PRN ×2 (15:56→22:16)
[2022-02-22] MEDS ORDERED: INSULIN GLARGINE 300 UNIT/3 ML PEN SUBQ SCH (21:00)
[2022-02-23] MEDS: SODIUM CHLORIDE FLUSH 0.9% 10 ML SYRINGE IVP SCH ×3 (00:01→15:54)
[2022-02-23] MEDS: VANCOMYCIN INJ 2 GM in SODIUM CHLORIDE 0.9% 500 ML IV SCH ×2 (00:28→12:55)
[2022-02-23 05:09] LABS: BASOPHILS # (AUTO) 0.1 10^3/uL (0.0-0.1); BASOPHILS % (AUTO) 0.8 %; EOSINOPHILS # (AUTO) 0.2 10^3/uL (0.0-0.7); HCT - HEMATOCRIT 44.1 % (42.0-52.0); HGB - HEMOGLOBIN 14.5 g/dL (14.0-18.0); LYMPHOCYTES # (AUTO) 1.9 10^3/uL (1.5-3.5); LYMPHOCYTES % (AUTO) 26.5 %; MEAN CORPUSCULAR HEMOGLOBIN 28.4 pg (27.0-31.0); MEAN CORPUSCULAR HGB CONC 32.9 g/dL (32.0-36.0); MEAN CORPUSCULAR VOLUME 86.3 fL (80.0-94.0); MEAN PLATELET VOLUME 9.9 fL (7.4-11.4); MONOCYTES # (AUTO) 0.7 10^3/uL (0.0-1.0); NEUTROPHILS # (AUTO) 4.3 10^3/uL (1.5-6.6); NEUTROPHILS % (AUTO) 58.7 %; PLT - PLATELET COUNT 328 10^3/uL (130-450); RED BLOOD COUNT 5.11 10^6/uL (4.70-6.10); WHITE BLOOD COUNT 7.3 x10^3/uL (4.8-10.8)
[2022-02-23 05:24] LABS: CALCIUM 8.6 mg/dL (8.5-10.3); CREATININE 0.8 mg/dL (0.6-1.2); POTASSIUM 4.1 mmol/L (3.5-5.0)
[2022-02-23] MEDS: INSULIN GLARGINE 300 UNIT/3 ML PEN SUBQ SCH (07:59)
[2022-02-23] MEDS: INSULIN ASPART 300 UNIT/3 ML PEN SUBQ SCH ×7 (07:59→21:10)
[2022-02-23] MEDS: DOCUSATE SODIUM 250 MG CAPSULE PO SCH (08:47)
[2022-02-23] MEDS: SACCHAROMYCES BOULARDII 250 MG CAPSULE PO SCH ×2 (08:48→16:33)
[2022-02-23] MEDS: polyethylene glycoL 3350 17 GM PACKET PO SCH (08:48)
[2022-02-23] MEDS: ENOXAPARIN 40 MG/0.4 ML SYRINGE SUBQ SCH (08:48)
[2022-02-23] MEDS: CHOLECALCIFEROL 25 MCG TABLET PO SCH (08:48)
[2022-02-23] MEDS: LACTOBACILLUS RHAMNOSUS GG CAPSULE PO SCH (08:48)
[2022-02-23] MEDS: CEFEPIME 2 GM in SODIUM CHLORIDE 0.9% MINIBAG 100 ML IV SCH ×2 (09:03→21:06)
--- NOTE | 2022-02-23 11:41 | PROVIDER PROGRESS NOTE ---
Assessment/Plan - Problem List (1) Cellulitis of left foot Assessment/Plan: 02/23 wound infection is improved, swelling is reduced, mild drainage at open wound site. will continue IV antibiotics on today, then we will switch to PO antibiotics. Discussed the care plan with pt, nurse will educate pt for how to do the dressing change, pt may followup with surgeon on next week to monitor pt's healing prognosis. 02/22 slight improved, swelling is reduced, CRP is reduced. surgeon is followup with pt as well. continue IV antibiotics, lab monitor, dressing change per surgeon's recommendation. continue pain control. 02/21 Surgeon Did I&D on patient on today, it come out 10 cc purulent fluids per surgeon notes. Patient tolerated. We will continue intravenous IV antibiotics, we will follow surgeon rod mmendation for dressing change, and wound care. continue pain control (2) Diabetes mellitus type 2 with complications, uncontrolled 02/23 increase lantus dosage on the night, increase dosage of schedule Novolog and continue high grade of slide scale, since pt still has elevated glucose level. 02/22, morning glucose is 170, strictly control of his glucose level, increase lantus to 15 units, keep slide scale, continue ACHS glucose check, continue hypoglycemia protocol 02/21 Morning patient's glucose is still 250. We will add 10 units Lantus in the night, continue 5 units Lantus in the morning, continue slide scale and scheduled Novolog, continue ACH S glucose check. continue hypoglycemia protocol (3) Morbid obesity Conclusion/Plan: Weight at admission 118kg and BMI of 40.7. Pt had nutritional consult. (4) Hyponatremia Conclusion/Plan: Na 134. - Current Meds Current Meds: Current Medications Generic Name Dose Route Start Last Admin Trade Name Freq PRN Reason Stop Dose Admin Acetaminophen 650 mg 02/13/22 17:36 02/22/22 22:16 Acetaminophen 325 Mg Tablet PO 650 mg Q4HR PRN Administration Pain 1 to 4 Cholecalciferol 50 mcg 02/14/22 17:00 02/23/22 08:48 Cholecalciferol 25 Mcg Tablet PO 50 mcg DAILY YUNIOR Administration Docusate Sodium 250 - 500 mg 02/23/22 09:00 02/23/22 08:47 Docusate Sodium 250 Mg Capsule PO 250 mg DAILY YUNIOR Administration Enoxaparin Sodium 40 mg 02/14/22 09:00 02/23/22 08:48 Enoxaparin 40 Mg/0.4 Ml Syringe SUBQ 40 mg DAILY YUNIOR Administration Vancomycin HCl 2 gm/ Sodium 500 mls @ 250 mls/hr 02/14/22 13:00 02/23/22 04:43 Chloride IV Infused Q12H YUNIOR Infusion Cefepime HCl 2 gm/ Sodium 100 mls @ 200 mls/hr 02/16/22 09:00 02/23/22 09:40 Chloride IV Infused BID YUNIOR Infusion Insulin Aspart 3 - 11 unit 02/14/22 21:00 02/23/22 11:27 Insulin Aspart 300 Unit/3 Ml Pen SUBQ 7 unit 0800,1200,1700,2100 YUNIOR Administration Protocol Insulin Aspart 10 unit 02/23/22 12:00 02/23/22 11:27 Insulin Aspart 300 Unit/3 Ml Pen SUBQ 10 unit TIDWM YUNIOR Administration Protocol Insulin Glargine 5 unit 02/21/22 09:00 02/23/22 07:59 Insulin Glargine 300 Unit/3 Ml Pen SUBQ 5 unit QDBREAKFAST YUNIOR Administration Lactobacillus Rhamnosus 1 cap 02/14/22 17:00 02/23/22 08:48 Lactobacillus Rhamnosus Gg Capsule PO 1 cap DAILY YUNIOR Administration Polyethylene Glycol 17 gm 02/20/22 09:00 02/23/22 08:48 Polyethylene Glycol 3350 17 Gm Packet PO 17 gm DAILY YUNIOR Administration Saccharomyces Boulardii 250 mg 02/20/22 08:00 02/23/22 08:48 Saccharomyces Boulardii 250 Mg Capsule PO 250 mg BIDWM YUNIOR Administration Sodium Chloride 10 ml 02/13/22 17:36 02/21/22 13:29 Sodium Chloride Flush 0.9% 10 Ml Syringe IVP 10 ml PRN PRN Administration NEEDED PER PROVIDER ORDERS Sodium Chloride 10 ml 02/14/22 01:00 02/23/22 08:48 Sodium Chloride Flush 0.9% 10 Ml Syringe IVP 10 ml 0100,0900,1700 YUNIOR Administration - Lab Result Fish Bone Diagrams: 02/23/22 04:38 02/23/22 04:38 - Additional Planning My Orders: My Active Orders 02/23/22 12:00 Insulin Aspart [NovoLOG] 10 unit SUBQ TIDWM 02/23/22 21:00 Insulin Glargine [Lantus Solostar] 18 unit SUBQ QPM 02/24/22 01:00 GLUCOSE [CHEM] Timed 02/24/22 05:00 BMP - BASIC METABOLIC PANEL [CHEM] DAILYLAB CBC - COMP BLD CT W/AUTO DIFF [HEME] DAILYLAB CRP - C-REACTIVE PROTEIN [CHEM] DAILYLAB 02/25/22 05:00 BMP - BASIC METABOLIC PANEL [CHEM] DAILYLAB CBC - COMP BLD CT W/AUTO DIFF [HEME] DAILYLAB CRP - C-REACTIVE PROTEIN [CHEM] DAILYLAB 02/26/22 05:00 BMP - BASIC METABOLIC PANEL [CHEM] DAILYLAB CBC - COMP BLD CT W/AUTO DIFF [HEME] DAILYLAB CRP - C-REACTIVE PROTEIN [CHEM] DAILYLAB 02/27/22 05:00 BMP - BASIC METABOLIC PANEL [CHEM] DAILYLAB CBC - COMP BLD CT W/AUTO DIFF [HEME] DAILYLAB CRP - C-REACTIVE PROTEIN [CHEM] DAILYLAB 02/28/22 05:00 BMP - BASIC METABOLIC PANEL [CHEM] DAILYLAB CBC - COMP BLD CT W/AUTO DIFF [HEME] DAILYLAB CRP - C-REACTIVE PROTEIN [CHEM] DAILYLAB Subjective - Subjective Patient Reports: Feeling Better, Resting Comfortably Objective Vital Signs: Vital Signs - 24 hr 02/22/22 02/22/22 02/23/22 15:51 23:56 07:26 Temperature 36.3 C L 36.7 C 36.4 C L Heart Rate [ 85 90 78 Brachial] Respiratory 17 17 16 Rate Blood Pressure 140/75 H 134/68 H 123/62 [Left Brachial artery] O2 Saturation 97 98 95 Oxygen O2 Source Room air I&O (Last 24 Hrs): Intake and Output Totals x24h 02/21/22 02/22/22 02/23/22 23:59 23:59 23:59 Intake Total 2520 2925 940 Output Total 10 Balance 2510 2925 940 General: Alert, Oriented x3, Cooperative, No acute distress HEENT: Atraumatic Neck: Supple Lymphatic: no adenopathy Neuro: Alert, Non Focal, Oriented Times 3 Cardiovascular: Regular rate, Normal S1, Normal S2 Respiratory: Chest non-tender, No respiratory distress Abdomen: Normal bowel sounds, Soft, No tenderness Extremities: Normal pulses, Other (mild to modarate swelling, mlid drainage appeared at the wound surgery site, erythema is reduced from yesterday.) - Results Results: Laboratory Results WBC 7.3 x10^3/uL (4.8-10.8) 02/23/22 04:38 RBC 5.11 10^6/uL (4.70-6.10) 02/23/22 04:38 Hgb 14.5 g/dL (14.0-18.0) 02/23/22 04:38 Hct 44.1 % (42.0-52.0) 02/23/22 04:38 MCV 86.3 fL (80.0-94.0) 02/23/22 04:38 MCH 28.4 pg (27.0-31.0) 02/23/22 04:38 MCHC 32.9 g/dL (32.0-36.0) 02/23/22 04:38 RDW 13.0 % (12.0-15.0) 02/23/22 04:38 Plt Count 328 10^3/uL (130-450) 02/23/22 04:38 MPV 9.9 fL (7.4-11.4) 02/23/22 04:38 Neut # (Auto) 4.3 10^3/uL (1.5-6.6) 02/23/22 04:38 Lymph # (Auto) 1.9 10^3/uL (1.5-3.5) 02/23/22 04:38 Dooly # (Auto) 0.7 10^3/uL (0.0-1.0) 02/23/22 04:38 Eos # (Auto) 0.2 10^3/uL (0.0-0.7) 02/23/22 04:38 Baso # (Auto) 0.1 10^3/uL (0.0-0.1) 02/23/22 04:38 Absolute Nucleated RBC 0.00 x10^3/uL 02/23/22 04:38 Nucleated RBC % 0.0 /100WBC 02/23/22 04:38 Sodium 132 mmol/L (135-145) L 02/23/22 04:38 Potassium 4.1 mmol/L (3.5-5.0) 02/23/22 04:38 Chloride 100 mmol/L (101-111) L 02/23/22 04:38 Carbon Dioxide 22 mmol/L (21-32) 02/23/22 04:38 Anion Gap 10.0 (6-13) 02/23/22 04:38 BUN 16 mg/dL (6-20) 02/23/22 04:38 Creatinine 0.8 mg/dL (0.6-1.2) 02/23/22 04:38 Estimated GFR (MDRD) 104 (>89) 02/23/22 04:38 Glucose 192 mg/dL (70-100) H 02/23/22 04:38 POC Whole Bld Glucose 238 mg/dL (70 - 100) H 02/23/22 11:06 Estimat Average Glucose 326 mg/dL (70-100) H 02/13/22 16:47 Hemoglobin A1c % 13.0 % (4.27-6.07) H 02/13/22 16:47 Calcium 8.6 mg/dL (8.5-10.3) 02/23/22 04:38 Total Bilirubin 0.4 mg/dL (0.2-1.0) 02/13/22 16:47 AST 14 IU/L (10-42) 02/13/22 16:47 ALT 23 IU/L (10-60) 02/13/22 16:47 Alkaline Phosphatase 68 IU/L (42-121) 02/13/22 16:47 C-Reactive Protein < 1.0 mg/dL (0-1.0) 02/23/22 04:38 Total Protein 6.8 g/dL (6.7-8.2) 02/13/22 16:47 Albumin 3.1 g/dL (3.2-5.5) L 02/13/22 16:47 Globulin 3.7 g/dL (2.1-4.2) 02/13/22 16:47 Albumin/Globulin Ratio 0.8 (1.0-2.2) L 02/13/22 16:47 Lipase 26 U/L (22-51) 02/13/22 16:47 Nasal Adenovirus (PCR) NOT DETECTED 02/13/22 18:00 Nasal B. parapertussis DNA (PCR) NOT DETECTED 02/13/22 18:00 Nasal Coronavir 229E PCR NOT DETECTED 02/13/22 18:00 Nasal Coronavir HKU1 PCR NOT DETECTED 02/13/22 18:00 Nasal Coronavir NL63 PCR NOT DETECTED 02/13/22 18:00 Nasal Coronavir OC43 PCR NOT DETECTED 02/13/22 18:00 Nasal Enterovir/Rhinovir PCR NOT DETECTED 02/13/22 18:00 Nasal Influenza B PCR NOT DETECTED 02/13/22 18:00 Nasal Influenza A PCR NOT DETECTED 02/13/22 18:00 Nasal Parainfluen 1 PCR NOT DETECTED 02/13/22 18:00 Nasal Parainfluen 2 PCR NOT DETECTED 02/13/22 18:00 Nasal Parainfluen 3 PCR NOT DETECTED 02/13/22 18:00 Nasal Parainfluen 4 PCR NOT DETECTED 02/13/22 18:00 Nasal RSV (PCR) NOT DETECTED 02/13/22 18:00 Nasal B.pertussis DNA PCR NOT DETECTED 02/13/22 18:00 Nasal C.pneumoniae (PCR) NOT DETECTED 02/13/22 18:00 Jean Paul Human Metapneumo PCR NOT DETECTED 02/13/22 18:00 Nasal M.pneumoniae (PCR) NOT DETECTED 02/13/22 18:00 Nasal SARS-CoV-2 (PCR) NOT DETECTED 02/13/22 18:00 Last Dose Date 02/22/22 02/22/22 11:56 Last Dose Time 0313 02/22/22 11:56 Vancomycin Trough 15.6 ug/mL (10.0-20.0) 02/22/22 11:56 ABX Reporting Has patient been on IV antibiotics over the past 48 hours?: Yes Current Medications - Current Medications Current Medications: Active Medications Acetaminophen (Acetaminophen 325 Mg Tablet) 650 mg PO Q4HR PRN PRN Reason: Pain 1 to 4 Last Admin: 02/22/22 22:16 Dose: 650 mg Cholecalciferol (Cholecalciferol 25 Mcg Tablet) 50 mcg PO DAILY [facility] Last Admin: 02/23/22 08:48 Dose: 50 mcg Docusate Sodium (Docusate Sodium 250 Mg Capsule) 250 - 500 mg PO DAILY [facility] Last Admin: 02/23/22 08:47 Dose: 250 mg Enoxaparin Sodium (Enoxaparin 40 Mg/0.4 Ml Syringe) 40 mg SUBQ DAILY [facility] Last Admin: 02/23/22 08:48 Dose: 40 mg Vancomycin HCl 2 gm/ Sodium (Chloride) 500 mls @ 250 mls/hr IV Q12H [facility] Last Infusion: 02/23/22 04:43 Dose: Infused Cefepime HCl 2 gm/ Sodium (Chloride) 100 mls @ 200 mls/hr IV BID [facility] Last Infusion: 02/23/22 09:40 Dose: Infused Insulin Aspart (Insulin Aspart 300 Unit/3 Ml Pen) 3 - 11 unit SUBQ 0800,1200,1700,2100 [facility]; Protocol Last Admin: 02/23/22 11:27 Dose: 7 unit Insulin Aspart (Insulin Aspart 300 Unit/3 Ml Pen) 10 unit SUBQ TIDWM [facility]; Protocol Last Admin: 02/23/22 11:27 Dose: 10 unit Insulin Glargine (Insulin Glargine 300 Unit/3 Ml Pen) 5 unit SUBQ QDBREAKFAST [facility] Last Admin: 02/23/22 07:59 Dose: 5 unit Insulin Glargine (Insulin Glargine 300 Unit/3 Ml Pen) 18 unit SUBQ QPM [facility] Lactobacillus Rhamnosus (Lactobacillus Rhamnosus Gg Capsule) 1 cap PO DAILY [facility] Last Admin: 02/23/22 08:48 Dose: 1 cap Ondansetron HCl (Ondansetron Odt 4 Mg Tablet) 4 mg TL Q6HR PRN PRN Reason: Nausea / Vomiting Ondansetron HCl (Ondansetron 4 Mg/2 Ml Vial) 4 mg IVP Q6HR PRN PRN Reason: Nausea / Vomiting Oxycodone HCl (Oxycodone 5 Mg Tablet) 5 mg PO Q4HR PRN PRN Reason: PAIN Polyethylene Glycol (Polyethylene Glycol 3350 17 Gm Packet) 17 gm PO DAILY [facility] Last Admin: 02/23/22 08:48 Dose: 17 gm Saccharomyces Boulardii (Saccharomyces Boulardii 250 Mg Capsule) 250 mg PO BIDWM [facility] Last Admin: 02/23/22 08:48 Dose: 250 mg Sodium Chloride (Sodium Chloride Flush 0.9% 10 Ml Syringe) 10 ml IVP PRN PRN PRN Reason: NEEDED PER PROVIDER ORDERS Last Admin: 02/21/22 13:29 Dose: 10 ml Sodium Chloride (Sodium Chloride Flush 0.9% 10 Ml Syringe) 10 ml IVP 0100,0900,1700 [facility] Last Admin: 02/23/22 08:48 Dose: 10 ml Glipizide [Glipizide ER] 5 mg PO DAILY 02/13/22
[2022-02-23] MEDS: SODIUM CHLORIDE FLUSH 0.9% 10 ML SYRINGE IVP PRN (12:55)
[2022-02-23] MEDS ORDERED: INSULIN GLARGINE 300 UNIT/3 ML PEN SUBQ SCH (21:00)
[2022-02-23] MEDS: SULFAMETH/TRIMETH DS 800/160 MG TABLET PO SCH (21:13)
[2022-02-23] MEDS: ACETAMINOPHEN 325 MG TABLET PO PRN (23:42)
[2022-02-24] MEDS: SODIUM CHLORIDE FLUSH 0.9% 10 ML SYRINGE IVP SCH ×2 (00:57→07:48)
[2022-02-24 05:31] LABS: BASOPHILS # (AUTO) 0.1 10^3/uL (0.0-0.1); BASOPHILS % (AUTO) 0.9 %; EOSINOPHILS # (AUTO) 0.2 10^3/uL (0.0-0.7); EOSINOPHILS % (AUTO) 2.5 %; HGB - HEMOGLOBIN 15.1 g/dL (14.0-18.0); LYMPHOCYTES # (AUTO) 2.1 10^3/uL (1.5-3.5); LYMPHOCYTES % (AUTO) 27.9 %; MEAN CORPUSCULAR HEMOGLOBIN 28.2 pg (27.0-31.0); MEAN CORPUSCULAR HGB CONC 32.8 g/dL (32.0-36.0); MEAN PLATELET VOLUME 9.8 fL (7.4-11.4); MONOCYTES # (AUTO) 0.8 10^3/uL (0.0-1.0); MONOCYTES % (AUTO) 10.2 %; NEUTROPHILS # (AUTO) 4.4 10^3/uL (1.5-6.6); NEUTROPHILS % (AUTO) 57.7 %; PLT - PLATELET COUNT 349 10^3/uL (130-450); RED BLOOD COUNT 5.35 10^6/uL (4.70-6.10); RED CELL DISTRIBUTION WIDTH 13.1 % (12.0-15.0); WHITE BLOOD COUNT 7.7 x10^3/uL (4.8-10.8)
[2022-02-24 05:48] LABS: BUN - BLOOD UREA NITROGEN 15 mg/dL (6-20); CALCIUM 8.8 mg/dL (8.5-10.3); CARBON DIOXIDE - CO2 24 mmol/L (21-32); CHLORIDE 97 mmol/L (101-111); CREATININE 0.8 mg/dL (0.6-1.2); GFR - MDRD 104 (>89); GLUCOSE 170 mg/dL (70-100); POTASSIUM 4.1 mmol/L (3.5-5.0); SODIUM 131 mmol/L (135-145)
[2022-02-24 05:52] LABS: CRP - C-REACTIVE PROTEIN < 1.0 mg/dL (0-1.0)
[2022-02-24] MEDS: ACETAMINOPHEN 325 MG TABLET PO PRN (05:56)
[2022-02-24 07:24] VITALS: BP 133/81
[2022-02-24] MEDS: ENOXAPARIN 40 MG/0.4 ML SYRINGE SUBQ SCH (07:41)
[2022-02-24] MEDS: DOCUSATE SODIUM 250 MG CAPSULE PO SCH (07:41)
[2022-02-24] MEDS: CHOLECALCIFEROL 25 MCG TABLET PO SCH (07:41)
[2022-02-24] MEDS: SACCHAROMYCES BOULARDII 250 MG CAPSULE PO SCH (07:42)
[2022-02-24] MEDS: SULFAMETH/TRIMETH DS 800/160 MG TABLET PO SCH (07:42)
[2022-02-24] MEDS: LACTOBACILLUS RHAMNOSUS GG CAPSULE PO SCH (07:42)
[2022-02-24] MEDS: INSULIN ASPART 300 UNIT/3 ML PEN SUBQ SCH ×2 (07:43→07:44)
[2022-02-24] MEDS: INSULIN GLARGINE 300 UNIT/3 ML PEN SUBQ SCH (07:45)
--- NOTE | 2022-02-24 07:45 | Discharge Plan ---
Discharge Plan Problem Reviewed?: Yes Disposition: Home, Self Care Condition: Stable Prescriptions: Sulfamethox/Trimeth 800/160 [Bactrim Ds] 1 tab PO BID #14 tablet cefUROXime axetiL [Ceftin] 500 mg PO BID #28 tablet Lactobacillus Rhamnosus GG [Culturelle] 1 cap PO DAILY #7 cap Blood-Glucose Meter [Glucometer] 1 each QID #1 each Blood Sugar Diagnostic [Glucometer Strips] 1 each MC QID #100 strip Lancets 1 each MC QID #100 each Insulin Glargine [Lantus Solostar] 20 unit SUBQ QPM #6 pe Insulin Aspart [NovoLOG] 5 unit SUBQ TIDWM #5 pe Insulin Aspart [NovoLOG] 3 - 11 unit SUBQ 0800,1200,1700,2100 #10 pe Diet: Diabetic Activity Restrictions: Activity as Tolerated Shower Restrictions: No (fall precaution) Instruction Topics: Cefuroxime tablets, Sulfamethoxazole Trimethoprim SMX-TMP tablets, Hyperglycemia, Hypoglycemia, Insulin Injected, Diabetes Healthy Meals, Drainage Abscess, Cellulitis Dc, Diabetes Type 2 Health Concerns: cellulitis/diabetes foot infection, diabetes Plan of Treatment: Your foot infection is nearly healed, you are prescribed antibiotics to finish the treatment course. You may followup with your surgeon to monitor your foot infection on next week. Your A1C is 13 and uncontrolled diabetes with foot infection. You are prescribed insulin Lantus and Novolog. Please followup with the education for how to use insulin, how to prevent of hypoglycemia and hyperglycemia, and all diabetes educations. You have an appointment to see your PCP on today, please followup the appointment, and followup with your PCP to continue diabetes management for you. Care Goals: Stabilization and improvement of your medical conditions Assessment: Discussed the care plan in detail with you, answered your questions, you understood and agreed Additional Instructions or Follow Up instructions: You may Follow-up with your PCP on today, follow-up with your surgeon on next week to monitor your feet infection. should your symptoms return or worse, you may present to the ER or call 911 for help No Smoking: If you smoke, Please STOP! Call for help. Follow-up with: Manuel Chou MD [Provider Admit Priv/Credential] - 1 Week
[2022-02-24] MEDS: polyethylene glycoL 3350 17 GM PACKET PO SCH (07:48)
--- NOTE | 2022-02-24 07:59 | DISCHARGE SUMMARY ---
Discharge Summary Admit Date: 02/13/22 Discharge Date: 02/24/22 Discharging Provider: Darian David Condition at Discharge: Stable Discharge Disposition: Home, Self Care Discharge Facility Name: home - DIAGNOSES Discharge Diagnoses with Status of Each Condition: (1) Cellulitis of left foot the surgery site already show scar tissue and at healing. pt had I&D at hospital. Cellulitis is significant improved. swelling is nearly resolved. CRP<1, WBC is at normal arrange. pt is prescribed antibiotics to finish the treatment course. pt is educated how to do the dressing change. nurse give pt some device for dressing change. pt may followup with surgeon Dr. Chou on next week (2) Diabetes mellitus type 2 with complications, uncontrolled pt had uncontrolled diabetes with A1C 13 and left diabetes foot infection. pt is prescribed insulin, device for glucose check. pt had extensive diabetes education at hospital. I personally had extensive education to pt for how to prevent of hypoglycemia and hyperglycemia for pt, special how to prevent of hypoglycemia for pt. pt verbally state he understood all these instruction, and will followup. pt will see his PCP on today. pt may followup with his PCP continue to manage of his diabetes and his left foot infection (3) Morbid obesity Pt had nutritional consult. pt state he is planing to loss of weight safely (4) Hyponatremia Na 131 - HPI History of Present Illness: refer from Romie Torres's HPI on 02/13/22 Mr. Hudson is a morbidly obese, 46-year-old male with a history of poorly c ontrolled diabetes type II who is being admitted from the ED today for cellulitis of the dorsum of his left foot after failing outpatient antibiotic therapy. He first noticed redness and edema on Sunday the . 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 Conservative therapy of Ibuprofen, rest, and ice failed so he went to the ED on Sunday the . There he had an US that ruled out DVT, he was given started on Augmentin and discharged. Over the weekend he was having more pain, the site felt very hot and it became more swollen, prompting his ED visit today. He describes the pain as a constant pressure and ache with occasional stabbing pain with movement. While walking makes the pain worse, he denies pain with movement of his ankle and toes. He also denies fever, chills, rigors, and sweats. Regarding his diabetes, he initially had increased BGLs in 2007 with an A1c of 8.4%. He was started on Metformin, but it was discontinued due to abdominal discomfort and replaced with Glipizide. Diabetes remained poorly controlled and he stopped taking the Glipizide in 2012 and began to diet and exercise. He lost 60 lbs but does not know what his A1c was at that time. More recently, he was seen at [facility] and started back on Glipizide. Today, he is 118 kg with a BMI fo 40.7 and his BGL on admission was 408. - ALLERGIES Allergies/Adverse Reactions: Allergies Allergy/AdvReac Type Severity Reaction Status Date / Time No Known Drug Allergies Allergy Verified 02/13/22 16:39 - MEDICATIONS Home Medications: Ambulatory Orders Medication Instructions Recorded Confirmed Glipizide [Glipizide ER] 5 mg PO DAILY 02/13/22 02/13/22 Blood Sugar Diagnostic [Glucometer 1 each QID #100 strip 02/24/22 Strips] Blood-Glucose Meter [Glucometer] 1 each QID #1 each 02/24/22 Insulin Aspart [NovoLOG] 3 - 11 unit SUBQ 02/24/22 0800,1200,1700,2100 #10 pe Insulin Aspart [NovoLOG] 5 unit SUBQ TIDWM #5 pe 02/24/22 Insulin Glargine [Lantus Solostar] 20 unit SUBQ QPM #6 pe 02/24/22 Lactobacillus Rhamnosus GG 1 cap PO DAILY #7 cap 02/24/22 [Culturelle] Lancets 1 each QID #100 each 02/24/22 Sulfamethox/Trimeth 800/160 1 tab PO BID #14 tablet 02/24/22 [Bactrim Ds] cefUROXime axetiL [Ceftin] 500 mg PO BID #28 tablet 02/24/22 - PHYSICAL EXAM AT DISCHARGE General Appearance: positive: No acute distress, Alert. negative: Lethargic Eyes Bilateral: positive: Normal inspection, No lid inflammation ENT: positive: ENT inspection nml, No signs of dehydration. negative: Purulent nasal drainage Neck: positive: Nml inspection, Trachea midline. negative: Tracheal deviation Respiratory: positive: Chest non-tender, No respiratory distress. negative: Wheezes Cardiovascular: positive: Regular rate & rhythm, No murmur. negative: Tac hycardia, Bradycardia, Systolic murmur Peripheral Pulses: positive: 2+ Abdomen: positive: Non-tender, Nml bowel sounds, No distention. negative: Tend erness Back: positive: Nml inspection Skin: positive: Color nml, Warm, Dry Extremities: positive: Non-tender, Full ROM, Other (surgery site is healing and appear scar tissue, swelling is nearly resolved at dorsum of left foot) Neurologic/Psychiatric: positive: Oriented x3, Motor nml, Sensation nml. negative: Weakness, Sensory loss, Facial droop, Slurred/abnml speech, Depressed mood/affect - LABS Result Diagrams: 02/24/22 05:13 02/24/22 05:13 - FOLLOW UP Follow Up: Your foot infection is nearly healed, you are prescribed antibiotics to finish the treatment course. You may followup with your surgeon to monitor your foot infection on next week. Your A1C is 13 and uncontrolled diabetes with foot infection. You are prescribed insulin Lantus and Novolog. Please followup with the education for how to use insulin, how to prevent of hypoglycemia and hyperglycemia, and all diabetes educations. You have an appointment to see your PCP on today, please followup the appointment, and followup with your PCP to continue diabetes management for you. You may Follow-up with your PCP on today, follow-up with your surgeon on next week to monitor your feet infection. should your symptoms return or worse, you may present to the ER or call 911 for help - TIME SPENT Time Spent in Discharge (Minutes): 30
== END 2022-02-24 09:15 | disposition home or self-care (01) | DRG 638 ==
LOC: ED 16:26 → MS2 17:36 → OBSVTOIN 02-16 10:50
PROVIDERS: ADMIT Specialist; ATTEND Nurse Practitioner Gerontology
PROC: 0H9NXZZ Drainage of Left Foot Skin, External Approach (ICD-10-PCS; principal; 2022-02-21)
DX: E11.628 Type 2 diabetes mellitus with other skin complications (principal); L03.116 Cellulitis of left lower limb; E87.1 Hypo-osmolality and hyponatremia; Z68.41 Body mass index [BMI] 40.0-44.9, adult; L02.612 Cutaneous abscess of left foot; E11.65 Type 2 diabetes mellitus with hyperglycemia; E66.01 Morbid (severe) obesity due to excess calories; E11.21 Type 2 diabetes mellitus with diabetic nephropathy; E11.319 Type 2 diabetes mellitus with unspecified diabetic retinopathy without macular edema; I10 Essential (primary) hypertension; K76.0 Fatty (change of) liver, not elsewhere classified; Z87.891 Personal history of nicotine dependence; Z79.84 Long term (current) use of oral hypoglycemic drugs; Z20.822 Contact with and (suspected) exposure to COVID-19
CPT/HCPCS: 0202U; 10060; 36415; 73701; 76882; 80048; 80053; 80202; 82947; 83036; 83690; 85025; 86140; 87070; 87205; 96365; 96366; 96367; 96372; 96375; 96376; 99284; 99285; A9270; G0378; J1650; J1815; J2185; J3370; J7040; Q9967

== ENCOUNTER 2022-04-27 16:10 | Outpatient (CLI) | payer MEDICAID ==
--- NOTE | 2022-04-28 08:53 | Ultrasound Report ---
PROCEDURE: Duplex Lwr Ext Arterial Bilat INDICATIONS: CLAUDICATION, VASCULAR INSUFFICIENCY TECHNIQUE: Color and pulse Doppler interrogation was performed of both lower extremity arterial systems, with im age documentation. COMPARISON: None FINDINGS: Right lower extremity: Common femoral artery: 79.7 cm/sec, with triphasic flow. Deep femoral artery: 61.1 cm/sec, with triphasic flow. Proximal superficial femoral artery: 124.6 cm/sec, with triphasic flow. Mid superficial femoral artery: 88.4 cm/sec, with triphasic flow. Distal superficial femoral artery: 99.1 cm/sec, with triphasic flow. Popliteal artery: 51.8 cm/sec, with triphasic flow. Posterior tibial artery: 15.6 cm/sec, with triphasic flow. Anterior tibial artery/dorsalis pedis: 58.6 cm/sec, with triphasic flow. Rinaldi-scale imaging description: Mild calcified atherosclerotic plaques are seen scattered throughout visualized right lower extremity arteries. Left lower extremity: Common femoral artery: 102.8 cm/sec, with triphasic flow. Deep femoral artery: 84.8 cm/sec, with triphasic flow. Proximal superficial femoral artery: 104 cm/sec, with triphasic flow. Mid superficial femoral artery: 82.3 cm/sec, with triphasic flow. Distal superficial femoral artery: 56.1 cm/sec, with triphasic flow. Popliteal artery: 68.1 cm/sec, with triphasic flow. Posterior tibial artery: 99.1 cm/sec, with triphasic flow. Anterior tibial artery/dorsalis pedis: 76.9 cm/sec, with triphasic flow. Rinaldi-scale imaging description: Mild calcified atherosclerotic plaques are seen scattered throughout visualized left lower extremity arteries IMPRESSION: 1. Mild atherosclerotic plaques are noted throughout bilateral lower extremity arteries. Normal triph asic flow is seen throughout bilateral lower extremity arteries. No hemodynamically significant steno sis is seen. Reviewed by: Mark Harris MD on 04/28/2022 8:52 AM PDT Approved by: Mark Harris MD on 04/28/2022 8:52 AM PDT Station ID: [id number]
--- NOTE | 2022-04-28 08:55 | Ultrasound Report ---
PROCEDURE: Duplex Ext Veins Left INDICATIONS: CLAUDICATION, VASCULAR INSUFFICIENCY TECHNIQUE: Real-time imaging, as well as color and pulse Doppler interrogation, were performed of the lower extr emity deep veins from the inguinal ligament to the popliteal fossa. COMPARISON: None. FINDINGS: The deep veins are normally compressible, and free of intraluminal thrombus. Color and pu lse Doppler demonstrate normal phasic intraluminal flow. There is normal augmentation response to di stal compression maneuver. Reflux is noted in left common femoral vein, superficial femoral vein and varicose veins in left ankl e level. Prominent lymph node is seen in left inguinal region measures 3.7 x 0.5 x 2.7 cm in size. IMPRESSION: 1. No evidence of DVT in visualized left lower extremity veins. 2. Varicose veins in left anterior ankle with reflux seen. Additional reflux are noted in left common femoral vein and superficial femoral vein. 3. Nonspecific prominent lymph node in left inguinal region which could represent reactive inflammato ry lymph node. Reviewed by: Mark Harris MD on 04/28/2022 8:54 AM PDT Approved by: Mark Harris MD on 04/28/2022 8:54 AM PDT Station ID: [id number]
== END 2022-04-27 16:11 | disposition home or self-care (01) ==
LOC: DI 16:10
PROVIDERS: ATTEND Nurse Practitioner
DX: I73.9 Peripheral vascular disease, unspecified (principal); I83.92 Asymptomatic varicose veins of left lower extremity
CPT/HCPCS: 93925

== ENCOUNTER 2022-09-23 09:51 | Outpatient (CLI) | payer MEDICAID ==
[2022-09-23 18:55] LABS: BASOPHILS % (AUTO) 0.4 %; EOSINOPHILS # (AUTO) 0.3 10^3/uL (0.0-0.7); EOSINOPHILS % (AUTO) 3.3 %; HCT - HEMATOCRIT 48.8 % (42.0-52.0); HGB - HEMOGLOBIN 15.8 g/dL (14.0-18.0); LYMPHOCYTES # (AUTO) 2.1 10^3/uL (1.5-3.5); LYMPHOCYTES % (AUTO) 27.2 %; MEAN CORPUSCULAR HEMOGLOBIN 28.4 pg (27.0-31.0); MEAN CORPUSCULAR HGB CONC 32.4 g/dL (32.0-36.0); MEAN CORPUSCULAR VOLUME 87.8 fL (80.0-94.0); MEAN PLATELET VOLUME 11.7 fL (7.4-11.4); MONOCYTES # (AUTO) 0.7 10^3/uL (0.0-1.0); MONOCYTES % (AUTO) 8.6 %; NEUTROPHILS # (AUTO) 4.5 10^3/uL (1.5-6.6); NEUTROPHILS % (AUTO) 60.1 %; PLT - PLATELET COUNT 238 10^3/uL (130-450); RED BLOOD COUNT 5.56 10^6/uL (4.70-6.10); RED CELL DISTRIBUTION WIDTH 13.2 % (12.0-15.0); WHITE BLOOD COUNT 7.5 x10^3/uL (4.8-10.8)
[2022-09-23 19:12] LABS: CREATININE,URINE 102.7 mg/dL; MICROALBUM/CREATININE RATIO,UR 72.1 ug/mg (<30.0); MICROALBUMIN,URINE 7.4 mg/dL (0-300.0)
[2022-09-23 19:18] LABS: ALBUMIN 4.2 g/dL (3.2-5.5); ALBUMIN/GLOBULIN RATIO 1.4 (1.0-2.2); ALKALINE PHOSPHATASE 52 IU/L (42-121); ALT ALANINE AMINOTRANSFERASE 23 IU/L (10-60); AST ASPARTATE AMINOTRANSFERASE 17 IU/L (10-42); BILIRUBIN,TOTAL 0.5 mg/dL (0.2-1.0); BUN - BLOOD UREA NITROGEN 22 mg/dL (6-20); CARBON DIOXIDE - CO2 23 mmol/L (21-32); CHLORIDE 101 mmol/L (101-111); CHOL/HDL RATIO 6.1 (<5.0); CHOLESTEROL 310 mg/dL; CREATININE 0.8 mg/dL (0.6-1.2); GFR - MDRD 103 (>89); GLUCOSE 278 mg/dL (70-100); HDL CHOLESTEROL 51 mg/dL; LDL CHOLESTEROL,CALCULATED 219 mg/dL; LDL/HDL RATIO 4.3 (<3.6); POTASSIUM 4.6 mmol/L (3.5-5.0); SODIUM 132 mmol/L (135-145); TOTAL PROTEIN 7.3 g/dL (6.7-8.2); TRIGLYCERIDES 200 mg/dL; VLDL CHOLESTEROL 40 mg/dL
[2022-09-24 12:12] LABS: ESTIMATED AVERAGE GLUCOSE 266 mg/dL (70-100); HEMOGLOBIN A1c% 10.9 % (4.27-6.07)
== END 2022-09-23 09:52 | disposition home or self-care (01) ==
LOC: LAB.N 09:51
PROVIDERS: ATTEND Nurse Practitioner
DX: E11.8 Type 2 diabetes mellitus with unspecified complications (principal); E78.5 Hyperlipidemia, unspecified
CPT/HCPCS: 36415; 80053; 80061; 82043; 82570; 83036; 83721; 85025

== ENCOUNTER 2023-06-26 08:00 | Outpatient (CLI) | payer MEDICAID | END 2023-06-26 23:59 | disposition home or self-care (01) | LOC: LAB.WCP 08:00 | PROVIDERS: ATTEND Physician Assistant Medical | DX: R30.0 Dysuria (principal) | CPT/HCPCS: 87086 ==

== ENCOUNTER 2023-06-28 15:26 | Outpatient (CLI) | payer MEDICAID ==
[2023-06-28 16:02] LABS: ALBUMIN 4.2 g/dL (3.2-5.5); ALBUMIN/GLOBULIN RATIO 1.4 (1.0-2.2); ALKALINE PHOSPHATASE 62 IU/L (42-121); ALT ALANINE AMINOTRANSFERASE 27 IU/L (10-60); AST ASPARTATE AMINOTRANSFERASE 16 IU/L (10-42); BILIRUBIN,TOTAL 0.5 mg/dL (0.2-1.0); BUN - BLOOD UREA NITROGEN 17 mg/dL (6-20); CALCIUM 9.5 mg/dL (8.5-10.3); CARBON DIOXIDE - CO2 26 mmol/L (21-32); CHLORIDE 97 mmol/L (101-111); CHOL/HDL RATIO 5.3 (<5.0); CHOLESTEROL 260 mg/dL; CREATININE 0.9 mg/dL (0.6-1.3); GFR - MDRD 90 (>89); GLUCOSE 246 mg/dL (74-104); HDL CHOLESTEROL 49 mg/dL; LDL CHOLESTEROL,CALCULATED 161 mg/dL; LDL/HDL RATIO 3.3 (<3.6); POTASSIUM 4.2 mmol/L (3.5-4.5); SODIUM 130 mmol/L (135-145); TOTAL PROTEIN 7.2 g/dL (6.4-8.9); TRIGLYCERIDES 251 mg/dL (48-352); VLDL CHOLESTEROL 50 mg/dL
[2023-06-28 20:48] LABS: ESTIMATED AVERAGE GLUCOSE 324 mg/dL (70-100); HEMOGLOBIN A1c% 12.9 % (4.27-6.07)
== END 2023-06-28 15:27 | disposition home or self-care (01) ==
LOC: LAB 15:26
PROVIDERS: ATTEND Physician Assistant Medical
DX: E78.5 Hyperlipidemia, unspecified (principal); Z12.5 Encounter for screening for malignant neoplasm of prostate; E11.8 Type 2 diabetes mellitus with unspecified complications
CPT/HCPCS: 36415; 80053; 80061; 83036; 83721; 84153

== ENCOUNTER 2024-06-10 08:00 | Outpatient (CLI) | payer MEDICAID ==
[2024-06-10 18:44] LABS: BILIRUBIN,URINE MODERATE (NEGATIVE); GLUCOSE, URINE (UA) 500 mg/dL (NEGATIVE); KETONES,URINE (UA) 15 mg/dL (NEGATIVE); LEUKOCYTE ESTERASE, URINE NEGATIVE (NEGATIVE); NITRITE,URINE POSITIVE (NEGATIVE); OCCULT BLOOD,URINE LARGE (NEGATIVE); PH,URINE 7.5 PH (5.0-7.5); PROTEIN,URINE >=300 mg/dL (NEGATIVE); UROBILINOGEN,URINE 1 (NORMAL) E.U./dL (NORMAL)
[2024-06-10 18:47] LABS: CLARITY,URINE BLOODY (CLEAR)
[2024-06-10 19:05] LABS: BACTERIA,URINE None Seen /HPF (None Seen); RBC,URINE TNTC /HPF (0-5); SQUAMOUS EPITHELIAL CELL,UR NONE SEEN (<= Few); WBC,URINE 0-3 /HPF (0-3)
== END 2024-06-10 23:59 | disposition home or self-care (01) ==
LOC: LAB.WCP 08:00
PROVIDERS: ATTEND Physician Assistant
DX: R31.0 Gross hematuria (principal); R30.0 Dysuria
CPT/HCPCS: 81001; 87077; 87086

== ENCOUNTER 2024-07-11 07:50 | Outpatient (CLI) | payer MEDICAID ==
[2024-07-11 08:12] LABS: BILIRUBIN,URINE NEGATIVE (NEGATIVE); GLUCOSE, URINE (UA) 500 mg/dL (NEGATIVE); KETONES,URINE (UA) NEGATIVE (NEGATIVE); LEUKOCYTE ESTERASE, URINE MODERATE (NEGATIVE); NITRITE,URINE POSITIVE (NEGATIVE); OCCULT BLOOD,URINE SMALL (NEGATIVE); PROTEIN,URINE NEGATIVE (NEGATIVE); UROBILINOGEN,URINE 0.2 (NORMAL) E.U./dL (NORMAL)
[2024-07-11 08:13] LABS: CLARITY,URINE SL. CLOUDY (CLEAR)
[2024-07-11 08:15] LABS: CALCIUM 9.2 mg/dL (8.5-10.3); CREATININE 1.2 mg/dL (0.6-1.3); POTASSIUM 4.4 mmol/L (3.5-4.5)
[2024-07-11 08:19] LABS: BACTERIA,URINE Many /HPF (None Seen); RBC,URINE 0-5 /HPF (0-5); SQUAMOUS EPITHELIAL CELL,UR FEW Squamous (<= Few); WBC,URINE >25 /HPF (0-3)
[2024-07-11 12:09] LABS: ESTIMATED AVERAGE GLUCOSE 295 mg/dL (70-100); HEMOGLOBIN A1c% 11.9 % (4.27-6.07)
== END 2024-07-11 07:51 | disposition home or self-care (01) ==
LOC: LAB 07:50
PROVIDERS: ATTEND Physician Assistant Medical
DX: R31.0 Gross hematuria (principal); R30.0 Dysuria; E11.8 Type 2 diabetes mellitus with unspecified complications
CPT/HCPCS: 36415; 80048; 81001; 83036; 87077; 87086